=== PATIENT | male | born 1950 | race Caucasian/White ===

== ENCOUNTER → 2016-03-13 | Outpatient (CLI) | payer OTHER, BC ==
[~2016-03-13] MED LIST: ALLDSR60 PO; ASPEC81 PO; ATV/1 PO; BND25 PO; CHOL1TAB42 PO; CHOL1TAB46 PO; CLC100 PO; CYCL10TA6 PO; CYM/30 PO; DIGETAB13 PO; DILT120C67 PO; DRGTP100 TD; DRGTP50 TD; EFFSR75 PO; IBUP-1449 PO; LEVO25TA5 PO; LISI-725 PO; MCRK20 PO; METF500T5 PO; METH10TA2 PO; METH5TAB2 PO; MOML PO; OXYC15TA49 PO; POLY335019 PO; POTA10CA28 PO; PRLSR20 PO; RANI75TA7 PO; RMR15 PO; TPRSR25 PO; ZOLP10TA PO
== END | disposition home or self-care (01) ==
LOC: C.LAB1850 10:52
PROVIDERS: ATTEND Internal Medicine Endocrinology, Diabetes & Metabolism
DX: E06.3 Autoimmune thyroiditis (principal)

== ENCOUNTER 2016-07-07 11:40 | Emergency (ER) | payer OTHER, BC ==
[~2016-07-07] VITALS: Ht 167.6 cm; Wt 72.0 kg
[~2016-07-07 11:40] MED LIST changes: -ASPEC81 PO; -ATV/1 PO; -BND25 PO; -CHOL1TAB42 PO; -CHOL1TAB46 PO; -CLC100 PO; -CYCL10TA6 PO; -DIGETAB13 PO; -DILT120C67 PO; -DRGTP100 TD; -DRGTP50 TD; -EFFSR75 PO; -IBUP-1449 PO; -LEVO25TA5 PO; -MCRK20 PO; -METF500T5 PO; -METH10TA2 PO; -MOML PO; -OXYC15TA49 PO; -POLY335019 PO; -POTA10CA28 PO; -PRLSR20 PO; -RMR15 PO; -TPRSR25 PO
[2016-07-07 11:42] VITALS: TEMP 36.5; Ht 167.6 cm; Wt 72.0 kg
[2016-07-07] MEDS ORDERED: METOCLOPRAMIDE HCL INJ 5 MG/ML 2 ML VIAL IV STA (12:13)
[2016-07-07] MEDS ORDERED: HYDROmorphone INJ 1 MG/ML SYR IV STA (12:13)
[2016-07-07] MEDS ORDERED: SODIUM CHLORIDE 0.9% 1000ML 1,000 ML IV STA (12:13)
[2016-07-07] MEDS ORDERED: KETOROLAC TROMETHAMINE 30 MG/ML VIAL IV STA (12:13)
--- NOTE | 2016-07-07 12:16 | EMERGENCY ROOM VISIT NOTE ---
History Report prepared by Naheed: Ovidio Dowell Under the Supervision of: Dr. Varun Matthews M.D. First contact with patient: 12:01 Chief Complaint: ABDOMINAL PAIN Stated Complaint: ABD. PAIN, POSS. BOWEL OBSTRUCTION Nursing Triage Summary: pt here with abd pains since last pm pt states had one emesis last pm. pt states vomited again this am. having diarrhea. pt states takes chronic pain meds for back problems. had a bowel obstruction 2 years ago History of Present Illness The patient is a 66 year old male who presents to the Emergency Room with complaints of worsening abdominal pain that started yesterday. He had an episode of vomiting yesterday and another episode this morning. The patient has also been having some episodes of diarrhea, but he says that gets diarrhea from taking milk of magnesia. The patient says that he bent over when the pain started. He states that he has pain from "head to toe", and this pain is similar to his previous bowel obstruction 2 years ago. He took 2 oxycodone last night, and 1 this morning. He says that his pain is "off the charts" still. The patient notes that he takes chronic medications due to having syringomyelia. The patient had a hernia repair 3 years ago, and he says that his chronic pain started then. He still has his gallbladder. The patient has hypertension, diabetes, and sleep apnea. He has a history of supraventricular tachycardia. Source of History: patient Onset: Yesterday Position: abdomen Symptom Intensity: "off the charts" pain Timing: worsening Associated Symptoms: + diarrhea, + vomiting Note: Associated symptoms: Pain from "head to toe". Review of Systems See HPI for pertinent positives & negatives. A total of 10 systems reviewed and were otherwise negative. Past Medical & Surgical Medical Problems: (1) Bowel obstruction (2) Diabetes (3) HTN (hypertension) (4) SVT (supraventricular tachycardia) (5) Syringomyelia Surgical Problems: (1) Hx of appendectomy Family History No pertinent family history Social History Smoking Status: Never Smoker Marital Status: Housing Status: lives with family Occupation Status: disabled Current/Historical Medications Scheduled Cholecalciferol (Vitamin D), 1 TAB PO DAILY Diltiazem Hcl Extended Release (Diltiazem Hcl Er), 1 CAP PO DAILY Fentanyl (Fentanyl), 1 PATCH TD 48 HRS Lorazepam (Ativan), 1 MG PO DAILY Magnesium Hydroxide (Milk Of Magnesia), 2 TBS PO DAILY Potassium Chloride (Micro-K Ext Rel), 10 MEQ PO DAILY Zolpidem Tartrate (Ambien), 10 MG PO HS Scheduled PRN Oxycodone Hcl (Roxicodone), 15 MG PO DAILY PRN for Pain Polyethylene Glycol 3350 (Miralax), 17 GM PO DAILY PRN for Constipation Allergies Coded Allergies: Tetanus Immune Globulin (Verified Allergy, Unknown, SWELLING, 04/05/11) Uncoded Allergies: LINZESS (Allergy, Severe, rash, severe diarrhea,swelling, 10/11/12) Physical Exam Vital Signs Date Time Temp Pulse Resp B/P Pulse Ox O2 Delivery O2 Flow Rate FiO2 07/07/16 15:34 86 18 138/83 97 Room Air 07/07/16 14:42 83 18 137/76 98 Room Air 07/07/16 12:44 85 23 145/85 98 Room Air 07/07/16 12:40 87 07/07/16 11:42 36.5 80 16 151/89 100 Room Air Physical Exam GENERAL: Patient is a healthy-appearing well-nourished 66 year old male. HEAD: Normocephalic atraumatic EYES: Ocular movements intact pupils equal and react to light OROPHARYNX mucous membranes are moist no exudates present no erythema or edema present NECK: Supple no nuchal rigidity CHEST: Good equal expansion LUNGS: Clear and equal to auscultation CARDIAC: Normal S1 and S2 ABDOMEN: Soft nontender no guarding BACK: No CVA tenderness EXTREMITIES: No pain upon palpation normal muscle strength in all groups no clubbing cyanosis or edema NEURO: Patient is following commands is answering questions appropriately. Alert and oriented x3 Cranial Nerves 2-12 grossly intact Medical Decision & Procedures ER Provider Diagnostic Interpretation: CT results as stated below per my review and radiologist interpretation: CT SCAN OF THE ABDOMEN AND PELVIS WITH IV CONTRAST CLINICAL HISTORY: Generalized abdominal pain. COMPARISON STUDY: No priors. TECHNIQUE: Following the IV administration of 118 cc of Optiray 320, CT scan of the abdomen and pelvis is performed from the lung bases to the proximal femora. Images are reviewed in the axial, sagittal, and coronal planes. IV contrast was administered without complication. Automated dose control exposure was utilized. CT DOSE: 467.88 mGycm FINDINGS: Lung bases: The heart is normal in size and without pericardial effusion. There are coronary artery calcifications. The lung bases are clear. There is a small hiatal hernia. Liver: The contrast-enhanced liver is normal in size, contour, and attenuation. There is no intrahepatic biliary ductal dilatation. The hepatic veins and portal veins are patent. A 9 mm cyst is noted in the left lobe. Gallbladder: Unremarkable. Spleen: Normal in size and attenuation. Pancreas: Moderately atrophic and grossly unremarkable. Adrenal glands: Unremarkable. Kidneys: The contrast enhanced kidneys demonstrate cortical atrophy and are without hydronephrosis. The kidneys enhance symmetrically. 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 Additional subcentimeter renal cortical hypodensities likely represent cysts but are too small for definitive characterization. Abdominal vasculature: The abdominal aorta is normal in course and caliber noting moderate atherosclerotic calcification. Bowel: The small bowel and colon are normal in course and caliber. There is moderate colonic fecal retention. The appendix is not identified and reported surgically absent. Peritoneum: There is no intraperitoneal free air or abdominal ascites. There is a fat-containing umbilical hernia. Lymphadenopathy: None. Pelvic viscera: The prostate gland is enlarged and heterogeneous, measuring 5.3 cm in transverse diameter. There is median lobe hypertrophy. The bladder is distended and grossly unremarkable. Skeletal structures: There is mild lumbosacral spondylosis. No lytic or blastic lesions are seen. IMPRESSION: 1. There are no acute infectious or inflammatory findings in the abdomen or pelvis. 2. Moderate constipation. 3. Prostatomegaly. 4. Additional findings as above. Electronically signed by: Carlos Eduardo Garcia M.D. 07/07/2016 2:49 PM Dictated Date/Time: 07/07/2016 2:45 PM Laboratory Results 07/07/16 12:25 Red Blood Count 4.25, Mean Corpuscular Volume 91.5, Mean Corpuscular Hemoglobin 32.0, Mean Corpuscular Hemoglobin Concent 35.0, Mean Platelet Volume 8.8, Neutrophils (%) (Auto) 76.7, Lymphocytes (%) (Auto) 11.0, Monocytes (%) (Auto) 10.8, Eosinophils (%) (Auto) 0.9, Basophils (%) (Auto) 0.3, Neutrophils # (Auto ) 5.11, Lymphocytes # (Auto) 0.73, Monocytes # (Auto) 0.72, Eosinophils # (Auto ) 0.06, Basophils # (Auto) 0.02 07/07/16 12:25 Test 07/07/16 12:25 07/07/16 13:35 White Blood Count 6.66 K/uL (4.8-10.8) Red Blood Count 4.25 M/uL (4.7-6.1) Hemoglobin 13.6 g/dL (14.0-18.0) Hematocrit 38.9 % (42-52) Mean Corpuscular Volume 91.5 fL (80-100) Mean Corpuscular Hemoglobin 32.0 pg (25-34) Mean Corpuscular Hemoglobin Concent 35.0 g/dl (32-36) Platelet Count 250 K/uL (130-400) Mean Platelet Volume 8.8 fL (7.4-10.4) Neutrophils (%) (Auto) 76.7 % Lymphocytes (%) (Auto) 11.0 % Monocytes (%) (Auto) 10.8 % Eosinophils (%) (Auto) 0.9 % Basophils (%) (Auto) 0.3 % Neutrophils # (Auto) 5.11 K/uL (1.4-6.5) Lymphocytes # (Auto) 0.73 K/uL (1.2-3.4) Monocytes # (Auto) 0.72 K/uL (0.11-0.59) Eosinophils # (Auto) 0.06 K/uL (0-0.5) Basophils # (Auto) 0.02 K/uL (0-0.2) RDW Standard Deviation 42.8 fL (36.4-46.3) RDW Coefficient of Variation 12.7 % (11.5-14.5) Immature Granulocyte % (Auto) 0.3 % Immature Granulocyte # (Auto) 0.02 K/uL (0.00-0.02) Anion Gap 9.0 mmol/L (3-11) Est Creatinine Clear Calc Drug Dose 69.3 ml/min Estimated GFR () 98.7 Estimated GFR (Non- 85.2 BUN/Creatinine Ratio 20.0 (10-20) Calcium Level 9.2 mg/dl (8.5-10.1) Total Bilirubin 0.5 mg/dl (0.2-1) Direct Bilirubin 0.1 mg/dl (0-0.2) Aspartate Amino Transf (AST/SGOT) 25 U/L (15-37) Alanine Aminotransferase (ALT/SGPT) 23 U/L (12-78) Alkaline Phosphatase 56 U/L (45-117) Total Protein 7.8 gm/dl (6.4-8.2) Albumin 4.7 gm/dl (3.4-5.0) Lipase 119 U/L (73-393) Urine Color YELLOW Urine Appearance CLEAR (CLEAR) Urine pH >= 9.0 (4.5-7.5) Urine Specific [place] 1.010 (1.000-1.030) Urine Protein NEG (NEG) Urine Glucose (UA) NEG (NEG) Urine Ketones TRACE (NEG) Urine Occult Blood NEG (NEG) Urine Nitrite NEG (NEG) Urine Bilirubin NEG (NEG) Urine Urobilinogen NEG (NEG) Urine Leukocyte Esterase NEG (NEG) Labs reviewed by ED physician. Medications Administered Medications (Trade) Dose Ordered Sig/Yonny Route Start Time Stop Time Status Last Admin Dose Admin Sodium Chloride (Nss 1000ml) 1,000 ml @ 999 mls/hr Q1H1M STAT IV 07/07/16 12:13 07/07/16 13:13 DC 07/07/16 12:32 999 MLS/HR Ketorolac Tromethamine (Toradol Inj) 30 mg NOW STAT IV 07/07/16 12:13 07/07/16 12:15 DC 07/07/16 12:33 30 MG Hydromorphone HCl (Dilaudid Inj) 1 mg NOW STAT IV 07/07/16 12:13 07/07/16 12:15 DC 07/07/16 12:33 1 MG Metoclopramide HCl (Reglan Inj) 10 mg NOW STAT IV 07/07/16 12:13 07/07/16 12:15 DC 07/07/16 12:32 10 MG Potassium Chloride (Mireya Ciel Elix) 40 meq NOW STAT PO 07/07/16 13:22 07/07/16 13:23 DC 07/07/16 13:31 40 MEQ Potassium Chloride (Mireya Ciel Elix) 40 meq NOW STAT PO 07/07/16 14:12 07/07/16 14:13 DC 07/07/16 14:53 40 MEQ Magnesium Citrate (Citrate Of Magnesia Soln) 296 ml NOW STAT PO 07/07/16 15:16 5/5/17 15:17 DC 07/07/16 15:29 296 ML ED Course 1207: Past medical records reviewed. The patient was evaluated in room B11B. A complete history and physical examination was performed. 1213: Ordered Dilaudid Inj 1 mg IV, Toradol Inj 30 mg IV, NSS 1000 ml @ 999 mls/ hr IV. 1250: I reevaluated the patient and his repeat abdominal exam in benign again. He wanted me to clip his toenail which I refused to do, as there is no evidence of infection there. The patient is now claiming that his deputy court clerk who he sees in [place] is sending him in here for his toenail. 1322: Ordered Mireya Ciel Elix 40 meq PO. 1515: Upon reexamination the patient is resting comfortably. I discussed results and treatment plan with the patient. He verbalizes agreement and understanding. The patient is ready for discharge. 1516: Ordered Citrate of Magnesia Soln 296 ml PO. Medical Decision Prior records/ancillary studies reviewed. Triage Nursing notes reviewed. The patient's history was concerning for abdominal pain. Differential diagnosis: Etiologies such as appendicitis, diverticulitis, PUD, biliary pathology, UTI, pancreatitis, obstruction, mesenteric ischemia, aortic pathology, infections, inflammatory bowel disease, renal colic, as well as others were entertained. This is a 66-year-old male who presents emergency department complaining of diffuse abdominal pain. The patient is concerned he has a bowel obstruction. He is also concerned about an ingrown toenail. On physical exam the ingrown toenail does not appear to be if infected and the patient normally sees a deputy court clerk for his ingrown toes. I believe that the patient is safe enough to continue to follow-up with podiatry. He does not have an elevation in his white blood count he has a normal renal profile he has a normal liver profile he has a normal lipase. CAT scan of his abdomen pelvis does not show any acute process. He has a benign abdominal examination. Serial abdominal examinations were performed on the patient in the emergency department and at no time did the patient exhibit abdominal tenderness. Based on these findings I felt that the patient most likely would benefit from a magnesium citrate cleanout. The patient was given magnesium citrate in the emergency department. He was also received Dilaudid as well as Zofran repeat examination revealed improvement patient's symptoms. I do believe that the patient is well enough to follow-up with his primary care physician. Patient was in agreement with the treatment plan. [place] Drug Monitoring Program Search Results: patient reviewed within database Drug Monitoring Findings: Patient had 30 oxy 15's filled on 06/29, 10 Fentanyl 100 mg patches on same date. 150 Fentanyl's, 30 Zolpidem 10 mg on 06/23. 120 Lorazepam 1 mg on 06/14. Impression Primary Impression: Abdominal pain Additional Impressions: Constipation Hypokalemia Scribe Attestation The scribe's documentation has been prepared under my direction and personally reviewed by me in its entirety. I confirm that the note above accurately reflects all work, treatment, procedures, and medical decision making performed by me. Departure Information Dispostion Home / Self-Care Referrals Rio Mccall M.D. (PCP) Forms HOME CARE DOCUMENTATION FORM, IMPORTANT VISIT INFORMATION, School Instructions, Work Instructions Patient Instructions Constipation, ED Abd Pain Unkn Cause Male, ED Diet Clear Liquid, Hypokalemia Dc , My [facility] Additional Instructions Take 1/2 bottle Mag Citrate Repeat second half in six hours Clear liquid diet next 48 hours You have been examined and treated today on an emergency basis only. This is not a substitute for, or an effort to provide, complete comprehensive medical care. It is impossible to recognize and treat all injuries or illnesses in a single emergency department visit. It is therefore important that you follow up closely with Dr Mccall. Call as soon as possible for an appointment. Thank you for your time and consideration. I look forward to speaking with you again soon. Please don't hesitate to call us if you have any questions. Problem Qualifiers Primary Impression: Abdominal pain Abdominal location: periumbilical Qualified Codes: R10.33 - Periumbilical pain Additional Impressions: Constipation Constipation type: unspecified constipation type Qualified Codes: K59.00 - Constipation, unspecified
[2016-07-07 12:54] LABS: BASO % 0.3 %; BASO ABS # 0.02 K/uL (0-0.2); COMPLETE YES; EOS % 0.9 %; HEMATOCRIT 38.9 % (42-52); IG% 0.3 %; LYMPH ABS # 0.73 K/uL (1.2-3.4); MEAN CELL VOLUME 91.5 fL (80-100); MEAN PLATELET VOLUME 8.8 fL (7.4-10.4); MONO % 10.8 %; NEUT % 76.7 %; PLATELET COUNT 250 K/uL (130-400); RED BLOOD COUNT 4.25 M/uL (4.7-6.1); WHITE BLOOD COUNT 6.66 K/uL (4.8-10.8)
[2016-07-07] MEDS ORDERED: MOML PO (12:56)
[2016-07-07] MEDS ORDERED: CHOL1TAB42 PO (12:56)
[2016-07-07] MEDS ORDERED: ATV/1 PO (12:56)
[2016-07-07] MEDS ORDERED: DILT120C67 PO (12:56)
[2016-07-07] MEDS ORDERED: DRGTP100 TD (12:56)
[2016-07-07] MEDS ORDERED: OXYC15TA49 PO (12:56)
[2016-07-07] MEDS ORDERED: POLY335019 PO (12:56)
[2016-07-07] MEDS ORDERED: POTA10CA28 PO (12:57)
[2016-07-07 13:14] LABS: CALCIUM 9.2 mg/dl (8.5-10.1); CREATININE 0.92 mg/dl (0.60-1.40)
[2016-07-07] MEDS ORDERED: POTASSIUM CHLORIDE 20 MEQ/15 ML UDC PO STA ×2 (13:22→14:12)
[2016-07-07 14:04] LABS: URINE APPEARANCE CLEAR (CLEAR); URINE BILIRUBIN NEG (NEG); URINE COLOR YELLOW; URINE NITRITE NEG (NEG); URINE PH >= 9.0 (4.5-7.5); UROBILINOGEN NEG (NEG)
[2016-07-07 14:06] LABS: MANUAL MICROSCOPIC REQUIRED? NO; REVIEW REQ? NO
[2016-07-07] MEDS ORDERED: OPTIRAY 320 IV PRN (14:45)
--- NOTE | 2016-07-07 14:50 | DIAGNOSTIC IMAGING REPORT ---
CT SCAN OF THE ABDOMEN AND PELVIS WITH IV CONTRAST CLINICAL HISTORY: Generalized abdominal pain. COMPARISON STUDY: No priors. TECHNIQUE: Following the IV administration of 118 cc of Optiray 320, CT scan of the abdomen and pelvis is performed from the lung bases to the proximal femora. Images are reviewed in the axial, sagittal, and coronal planes. IV contrast was administered without complication. Automated dose control exposure was utilized. CT DOSE: 467.88 mGycm FINDINGS: Lung bases: The heart is normal in size and without pericardial effusion. There are coronary artery calcifications. The lung bases are clear. There is a small hiatal hernia. Liver: The contrast-enhanced liver is normal in size, contour, and attenuation. There is no intrahepatic biliary ductal dilatation. The hepatic veins and portal veins are patent. A 9 mm cyst is noted in the left lobe. Gallbladder: Unremarkable. Spleen: Normal in size and attenuation. Pancreas: Moderately atrophic and grossly unremarkable. Adrenal glands: Unremarkable. Kidneys: The contrast enhanced kidneys demonstrate cortical atrophy and are without hydronephrosis. The kidneys enhance symmetrically. 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 Additional subcentimeter renal cortical hypodensities likely represent cysts but are too small for definitive characterization. Abdominal vasculature: The abdominal aorta is normal in course and caliber noting moderate atherosclerotic calcification. Bowel: The small bowel and colon are normal in course and caliber. There is moderate colonic fecal retention. The appendix is not identified and reported surgically absent. Peritoneum: There is no intraperitoneal free air or abdominal ascites. There is a fat-containing umbilical hernia. Lymphadenopathy: None. Pelvic viscera: The prostate gland is enlarged and heterogeneous, measuring 5.3 cm in transverse diameter. There is median lobe hypertrophy. The bladder is distended and grossly unremarkable. Skeletal structures: There is mild lumbosacral spondylosis. No lytic or blastic lesions are seen. IMPRESSION: 1. There are no acute infectious or inflammatory findings in the abdomen or pelvis. 2. Moderate constipation. 3. Prostatomegaly. 4. Additional findings as above. Electronically signed by: Carlos Eduardo Garcia M.D. 07/07/2016 2:49 PM Dictated Date/Time: 07/07/2016 2:45 PM
[2016-07-07] MEDS ORDERED: MAGNESIUM CITRATE 296 ML/BTL PO STA (15:16)
[2016-07-07 15:34] VITALS: BP 138/83; PULSE 86; O2SAT 97
[2016-09-20] MEDS ORDERED: DIPH25CA5 PO (06:29)
[2016-09-24] MEDS ORDERED: ASPEC81 PO (13:49)
[2016-09-24] MEDS ORDERED: ATV/1 PO (13:49)
[2016-09-24] MEDS ORDERED: ZOLP10TA PO (13:49)
[2016-09-24] MEDS ORDERED: OXYC15TA49 PO (13:49)
[2016-09-24] MEDS ORDERED: EFFSR75 PO (13:49)
[2016-09-24] MEDS ORDERED: RMR15 PO (13:49)
== END 2016-07-07 15:34 | disposition home or self-care (01) ==
LOC: C.EDB 11:42
DX: R10.33 Periumbilical pain (principal); K59.00 Constipation, unspecified; E87.6 Hypokalemia; G95.0 Syringomyelia and syringobulbia; I10 Essential (primary) hypertension; E11.9 Type 2 diabetes mellitus without complications; G47.30 Sleep apnea, unspecified; R11.10 Vomiting, unspecified

== ENCOUNTER 2016-09-20 05:45 | Inpatient (IN) | payer OTHER, BC ==
[~2016-09-20] VITALS: Ht 172.7 cm; Wt 76.8 kg
[2016-09-20] VITALS (8 sets, daily range): BP systolic 131–174; BP diastolic 78–99; PULSE 74–94; TEMP 36.6–37.3; O2SAT 93–100; Ht 172.7 cm; Wt 76.8 kg
[~2016-09-20 05:45] MED LIST changes: -ALLDSR60 PO; +ATV/1 PO; +CHOL1TAB42 PO; -CYM/30 PO; +DILT120C67 PO; +DRGTP100 TD; -LISI-725 PO; -METH5TAB2 PO; +MOML PO; +OXYC15TA49 PO; +POLY335019 PO; +POTA10CA28 PO; -RANI75TA7 PO
[2016-09-20] MEDS ORDERED: LEVO25TA5 PO (06:29)
[2016-09-20] MEDS ORDERED: PRLSR20 PO (06:29)
[2016-09-20] MEDS ORDERED: BND25 PO (06:29)
[2016-09-20] MEDS ORDERED: METH10TA2 PO (06:29)
[2016-09-20] MEDS ORDERED: DIGETAB13 PO (06:29)
[2016-09-20] MEDS ORDERED: METF500T5 PO (06:29)
[2016-09-20] MEDS ORDERED: DRGTP50 TD (06:29)
[2016-09-20] MEDS ORDERED: IBUP-1449 PO (06:29)
[2016-09-20] MEDS ORDERED: CLC100 PO (06:29)
[2016-09-20] MEDS ORDERED: MCRK20 PO (06:29)
[2016-09-20] MEDS ORDERED: CHOL1TAB46 PO (06:29)
--- NOTE | 2016-09-20 06:35 | EMERGENCY ROOM VISIT NOTE ---
History Report prepared by Naheed: Jem Martínez Under the Supervision of: Dr. Sandra Webb D.O. First contact with patient: 06:00 Chief Complaint: OTHER COMPLAINT Stated Complaint: OVERDOSE History of Present Illness The patient is a 66 year old male who presents to the Emergency Room with complaints of a possible overdose that occurred this morning. The patient states that he has a history of chronic pain since 2003. He also has a history of SVT. Within the last year, the patient had an episode of SVT which he received an echocardiogram for in [facility]. He decided to set up an appointment with Dr. Mathews of [facility] for a second opinion. He was supposed to schedule another appointment with cardiology but never followed through with it. EMS found him in SVT and gave him Adenosine 6 mg IV and Zofran 4 mg IV. Yesterday, the patient took Methadone 60 mg PO that was from 2013, OxyContin, and some Ambien for his diffuse chronic pain. At 1 am this morning, he was awake working on his computer when his abdominal pain worsened. He took some Ibuprofen and Benadryl. He then woke up a couple hours later this morning lightheaded with numbness in his bilateral upper extremities saying that "he knew he had overdosed." He called EMS. He has 2 Fentanyl patches on as well. He has never had a heart attack before. He has urinary retention that is causing him pain. He could only expel 800 cc's of urine with strain here in the emergency department. The nursing staff did a bladder scan for an additional 400 cc's still inside. The patient describes having episodes of urinary retention and prostate problems since being in [place]. Source of History: patient Onset: this morning Position: other (global) Symptom Intensity: moderate Quality: other (Possible OD) Timing: constant Associated Symptoms: + abdominal pain, + numbness Note: His hands are tingling and he is lightheaded. Review of Systems See HPI for pertinent positives & negatives. A total of 10 systems reviewed and were otherwise negative. Past Medical & Surgical Medical Problems: (1) Bowel obstruction (2) Diabetes (3) HTN (hypertension) (4) SVT (supraventricular tachycardia) (5) Syringomyelia Surgical Problems: (1) Hx of appendectomy Family History No pertinent family history Social History Smoking Status: Never Smoker Smokeless Tobacco Use: No Marital Status: Housing Status: lives with family Occupation Status: disabled Current/Historical Medications Scheduled Cholecalciferol (Vitamin D3), 5,000 UNITS PO DAILY Digestive Enzymes (Papaya Enzyme), 8 TABS PO TIDM Diltiazem Hcl Extended Release (Diltiazem Hcl Er), 1 CAP PO DAILY Diphenhydramine Hcl (Benadryl), 50 MG PO DIRECTED Docusate Sodium (Docusate Sodium), 100 MG PO TID Fentanyl (Fentanyl), 1 PATCH TD 48 HRS Fentanyl (Fentanyl), 50 MCG TD Q48HR Levothyroxine Sodium (Levothyroxine Sodium), 25 MCG PO DAILY Lorazepam (Ativan), 1 MG PO DAILY Magnesium Hydroxide (Milk Of Magnesia), 2 TBS PO DAILY Potassium Chloride (Klor-Con M20), 20 MEQ PO DAILY Zolpidem Tartrate (Ambien), 10 MG PO HS Scheduled PRN Ibuprofen Tab (Motrin), 400 MG PO DIRECTED PRN for Pain Methadone Hcl (Dolophine), 10 MG PO Q8 PRN for Pain Oxycodone Hcl (Roxicodone), 15 MG PO DAILY PRN for Pain Polyethylene Glycol 3350 (Miralax), 17 GM PO DAILY PRN for Constipation Allergies Coded Allergies: Linaclotide (Verified Allergy, Intermediate, rash, severe diarrhea, swelling, 09/20/16) Tetanus Immune Globulin (Verified Allergy, Unknown, SWELLING, 09/20/16) CI Pigment Blue 63 (Unverified Adverse Reaction, Unknown, UNKNOWN, 09/20/16 ) Duloxetine (Unverified Adverse Reaction, Unknown, UNKNOWN, 09/20/16) Physical Exam Vital Signs Date Time Temp Pulse Resp B/P (MAP) Pulse Ox O2 Delivery O2 Flow Rate FiO2 09/20/16 08:36 103 17 95 09/20/16 08:31 158/93 09/20/16 08:06 103 98 09/20/16 08:01 162/92 09/20/16 07:36 100 15 98 09/20/16 07:31 156/84 09/20/16 07:30 102 17 93 09/20/16 07:01 156/89 09/20/16 07:00 107 20 99 09/20/16 06:18 109 09/20/16 05:53 36.7 106 20 171/93 98 Room Air Physical Exam HEENT: Head - normocephalic and atraumatic Pupils are equal, round, and reactive to light. Extraocular eye muscles are intact, and sclera are anicteric. Nose - moist nasal mucosa without discharge. Mouth - moist buccal mucosa. Oropharynx is nonerythematous and there is no tonsillar exudate or edema noted. Neck: Supple; no JVD, nuchal rigidity, cervical lymphadenopathy, or auscultated. Heart: Tachycardic rate with a regular rhythm. There is a normal S1 and S2 with no murmurs, clicks, or gallops appreciated. Lungs: Clear to auscultation bilaterally with no wheezes, rales, or rhonchi. Abdomen: Soft, diffuse tenderness to palpation, distended, with good bowel sounds. There are no palpable pulsatile masses or hepatosplenomegaly. There is no guarding, rigidity, or rebound noted. Extremities: No evidence of cyanosis, clubbing, or edema. There are easily palpable peripheral pulses. Skin: warm and dry with good turgor and no rashes. Medical Decision & Procedures ER Provider Diagnostic Interpretation: Radiology results as stated below per my review and the radiologist's interpretation: CHEST ONE VIEW PORTABLE CLINICAL HISTORY: 66 years-old Male presenting with svt. TECHNIQUE: Portable upright AP view of the chest was obtained. COMPARISON: Chest CT from 2006. FINDINGS: Atherosclerosis of aortic arch. Cardiomediastinal silhouette otherwise normal. No abnormal soft tissue density in the region of the superior vena cava. Minimal bandlike opacity at the left lung base. Pleural spaces clear. Degenerative changes of the right glenohumeral joint. Upper abdomen normal. IMPRESSION: 1. No abnormal soft tissue density in the region of the superior vena cava. 2. Minimal left basilar atelectasis. Electronically signed by: Arnaldo Arenas M.D. 09/20/2016 7:34 AM Dictated Date/Time: 09/20/2016 7:31 AM Laboratory Results 09/20/16 06:45 Red Blood Count 4.66, Mean Corpuscular Volume 89.5, Mean Corpuscular Hemoglobin 31.1, Mean Corpuscular Hemoglobin Concent 34.8, Mean Platelet Volume 8.7, Neutrophils (%) (Auto) 79.3, Lymphocytes (%) (Auto) 11.8, Monocytes (%) (Auto) 7.9, Eosinophils (%) (Auto) 0.3, Basophils (%) (Auto) 0.3, Neutrophils # (Auto) 5.48, Lymphocytes # (Auto) 0.82, Monocytes # (Auto) 0.55, Eosinophils # (Auto) 0.02, Basophils # (Auto) 0.02 09/20/16 06:34 Test 09/20/16 05:44 09/20/16 05:55 09/20/16 06:34 09/20/16 06:45 Nucleated Red Blood Cells % % Urine Color COLORLESS Urine Appearance CLEAR (CLEAR) Urine pH 7.0 (4.5-7.5) Urine Specific [place] <= 1.005 (1.000-1.030) Urine Protein NEG (NEG) Urine Glucose (UA) TRACE (NEG) Urine Ketones 1+ (NEG) Urine Occult Blood NEG (NEG) Urine Nitrite NEG (NEG) Urine Bilirubin NEG (NEG) Urine Urobilinogen NEG (NEG) Urine Leukocyte Esterase NEG (NEG) Anion Gap 10.0 mmol/L (3-11) Est Creatinine Clear Calc Drug Dose 57.0 ml/min Estimated GFR () 71.6 Estimated GFR (Non- 61.8 BUN/Creatinine Ratio 12.4 (10-20) Calcium Level 9.4 mg/dl (8.5-10.1) Magnesium Level 3.1 mg/dl (1.8-2.4) Total Bilirubin 0.6 mg/dl (0.2-1) Aspartate Amino Transf (AST/SGOT) 13 U/L (15-37) Alanine Aminotransferase (ALT/SGPT) 20 U/L (12-78) Alkaline Phosphatase 83 U/L (45-117) Total Creatine Kinase 116 U/L (39-308) Total Protein 8.1 gm/dl (6.4-8.2) Albumin 4.6 gm/dl (3.4-5.0) Globulin 3.5 gm/dl (2.5-4.0) Albumin/Globulin Ratio 1.3 (0.9-2) Thyroid Stimulating Hormone (TSH) 1.120 uIu/ml (0.300-4.500) White Blood Count 6.92 K/uL (4.8-10.8) Red Blood Count 4.66 M/uL (4.7-6.1) Hemoglobin 14.5 g/dL (14.0-18.0) Hematocrit 41.7 % (42-52) Mean Corpuscular Volume 89.5 fL (80-100) Mean Corpuscular Hemoglobin 31.1 pg (25-34) Mean Corpuscular Hemoglobin Concent 34.8 g/dl (32-36) Platelet Count 286 K/uL (130-400) Mean Platelet Volume 8.7 fL (7.4-10.4) Neutrophils (%) (Auto) 79.3 % Lymphocytes (%) (Auto) 11.8 % Monocytes (%) (Auto) 7.9 % Eosinophils (%) (Auto) 0.3 % Basophils (%) (Auto) 0.3 % Neutrophils # (Auto) 5.48 K/uL (1.4-6.5) Lymphocytes # (Auto) 0.82 K/uL (1.2-3.4) Monocytes # (Auto) 0.55 K/uL (0.11-0.59) Eosinophils # (Auto) 0.02 K/uL (0-0.5) Basophils # (Auto) 0.02 K/uL (0-0.2) RDW Standard Deviation 40.3 fL (36.4-46.3) RDW Coefficient of Variation 12.5 % (11.5-14.5) Immature Granulocyte % (Auto) 0.4 % Immature Granulocyte # (Auto) 0.03 K/uL (0.00-0.02) Laboratory results per my review. Medications Administered Medications (Trade) Dose Ordered Sig/Yonny Route Start Time Stop Time Status Last Admin Dose Admin Sodium Chloride 500 ml @ 999 mls/hr Q31M STAT IV 09/20/16 07:00 09/20/16 07:30 DC 09/20/16 07:04 999 MLS/HR Sodium Chloride 1,000 ml @ 250 mls/hr Q4H STAT IV 09/20/16 07:00 09/20/16 10:59 DC 09/20/16 07:50 250 MLS/HR Procedure Sodium Chloride 1000 ml @ 250 mls/hr IV Sodium Chloride 500 ml @ 999 mls/hr IV ECG Indication: toxicologic Rate (beats per minute): 107 Rhythm: sinus tachycardia Findings: ST depression (Lateral), T-wave inversion (Inferior) Comparison ECG Date: 22 Nov 1998 Change: The T-wave inversions and ST depressions are new. ED Course 0600: Past medical records reviewed. The patient was evaluated in room B7. A complete history and physical exam was performed. A bladder scan was performed as described above. Laboratory studies were drawn as above. The patient had a twelve-lead EKG as described above. 0658: After the nursing staff placed a urinary catheter in the patient, he released an additional 1 L of urine. He then went on to tell me that the tingling is now in his bilateral lower extremities as well as his upper. 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 0700: The patient appeared clinically dehydrated on physical exam. I Ordered Sodium Chloride 1000 ml @ 250 mls/hr IV, Sodium Chloride 500 ml @ 999 mls/hr IV. 0708: I met the patient's at this time. The patient now has pain in his arms and legs, which he has had for the past two years. He wondered if I had any suggestion on what this could be. 0736: Upon reevaluation, I discussed findings and results with the patient. He verbalized agreement of the treatment plan. [facility] The patient will be evaluated for further management and care. Medical Decision The patient is a 66 year old male who presents to the ED with a possible overdose. Differential diagnosis includes NSTEMI, cardiac dysrhythmia, opioid overdose, exacerbation of chronic pain, UTI, and urinary retention. I attest that I have personally reviewed the patient's current medication list. Patient was found to have an elevated blood pressure that is not well controlled. It will be addressed as the patient is treated as an inpatient. Laboratory Results: No leukocytosis, stable H&H, normal renal function, glucose 141, urinalysis shows trace glucose and 1+ ketones, TSH 1.1, cardiac enzymes negative, and LFTs normal. This is a 66-year-old male patient with a history of chronic pain. The patient states that his chronic pain seems to worsen over the past couple of days. Also experiencing increased abdominal pain over the past 2 days. The patient describes an episode of intermittent urinary hesitancy and difficulty creating a urine stream. Upon presentation to the emergency department, the patient sat on the toilet for approximately 30 minutes trying to empty his bladder. He was able to produce 800 mL of urine with significant strain. Bladder scan showed an additional 400 mL of urine within the bladder. Once the Oliver catheter was placed, he produce an additional liter and had complete resolution of the abdominal pain. The patient did take a significant amount of opioid over the past 24-48 hours. He is prescribed 150 g of fentanyl transdermal. These were in place. He also took OxyContin which is prescribed for him. He then also took 60 mg of methadone which was left over from 2013. On top of this, the patient took Benadryl and Ambien. I do believe there is some component of overdose. Certainly that amount of opioids is not helping the patient's urinary retention. The patient did have an episode of SVT for EMS. He was converted with 6 mg of IV adenosine. Upon arrival to the emergency department, a twelve-lead EKG was obtained which showed significant inferior and lateral changes. Patient has no associated chest pain. Cardiac biomarkers were negative. I discussed the case with the [facility] Hospitalist and they will evaluate for further management. Consults Time Called: [phone] Consulting Physician[facility] Return[facility] Call: [phone] They will be evaluating the patient for further management and care. Impression Primary Impression: SVT (supraventricular tachycardia) Additional Impressions: Urinary retention Acute electrocardiogram changes Scribe Attestation The scribe's documentation has been prepared under my direction and personally reviewed by me in its entirety. I confirm that the note above accurately reflects all work, treatment, procedures, and medical decision making performed by me. Departure Information Dispostion Being Evaluated By Hospitalist Referrals Rio Mccall M.D. (PCP) Patient Instructions My [facility] Problem Qualifiers
[2016-09-20] MEDS ORDERED: CYCL10TA6 PO (06:37)
[2016-09-20 06:41] LABS: COMPLETE YES
[2016-09-20] MEDS ORDERED: SODIUM CHLORIDE 0.9% 500ML 500 ML IV STA (07:00)
[2016-09-20] MEDS ORDERED: SODIUM CHLORIDE 0.9% 1000ML 1,000 ML IV STA (07:00)
[2016-09-20 07:06] LABS: BASO % 0.3 %; BASO ABS # 0.02 K/uL (0-0.2); COMPLETE YES; EOS % 0.3 %; HEMATOCRIT 41.7 % (42-52); IG% 0.4 %; LYMPH % 11.8 %; LYMPH ABS # 0.82 K/uL (1.2-3.4); MEAN CELL VOLUME 89.5 fL (80-100); MEAN CORPUSCULAR HEMOGLOBIN 31.1 pg (25-34); MEAN CORPUSCULAR HGB CONC 34.8 g/dl (32-36); MEAN PLATELET VOLUME 8.7 fL (7.4-10.4); MONO % 7.9 %; NEUT % 79.3 %; PLATELET COUNT 286 K/uL (130-400); RED BLOOD COUNT 4.66 M/uL (4.7-6.1); WHITE BLOOD COUNT 6.92 K/uL (4.8-10.8)
[2016-09-20 07:07] LABS: MANUAL MICROSCOPIC REQUIRED? NO; URINE APPEARANCE CLEAR (CLEAR); URINE BILIRUBIN NEG (NEG); URINE COLOR COLORLESS; URINE NITRITE NEG (NEG); URINE SPECIFIC GRAVITY <= 1.005 (1.000-1.030); UROBILINOGEN NEG (NEG)
[2016-09-20 07:09] LABS: REVIEW REQ? NO
[2016-09-20 07:18] LABS: ALT/SGPT 20 U/L (12-78); BLOOD UREA NITROGEN 15 mg/dl (7-18); BUN/CREATININE RATIO 12.4 (10-20); CALCIUM 9.4 mg/dl (8.5-10.1); CARBON DIOXIDE 26 mmol/L (21-32); CHLORIDE 100 mmol/L (98-107); GLUCOSE 141 mg/dl (70-99); POTASSIUM 3.5 mmol/L (3.5-5.1); SODIUM 136 mmol/L (136-145)
[2016-09-20 07:29] LABS: ALB/GLOB RATIO 1.3 (0.9-2); ALKALINE PHOSPHATASE 83 U/L (45-117); AST/SGOT 13 U/L (15-37); CKMB/CK RATIO 1.1 (0-3.0)
--- NOTE | 2016-09-20 07:35 | DIAGNOSTIC IMAGING REPORT ---
CHEST ONE VIEW PORTABLE CLINICAL HISTORY: 66 years-old Male presenting with svt. TECHNIQUE: Portable upright AP view of the chest was obtained. COMPARISON: Chest CT from 2006. FINDINGS: Atherosclerosis of aortic arch. Cardiomediastinal silhouette otherwise normal. No abnormal soft tissue density in the region of the superior vena cava. Minimal bandlike opacity at the left lung base. Pleural spaces clear. Degenerative changes of the right glenohumeral joint. Upper abdomen normal. IMPRESSION: 1. No abnormal soft tissue density in the region of the superior vena cava. 2. Minimal left basilar atelectasis. Electronically signed by: Arnaldo Arenas M.D. 09/20/2016 7:34 AM Dictated Date/Time: 09/20/2016 7:31 AM
[2016-09-20] MEDS ORDERED: ONDANSETRON INJ 2 MG/ML 2 ML VIAL IV PRN (09:00)
[2016-09-20] MEDS ORDERED: DILTIAZEM HCL 120 MG CAPCR PO SCH (09:00)
[2016-09-20] MEDS ORDERED: METOPROLOL TARTRATE 1 MG/ML VIAL IV PRN (09:15)
[2016-09-20] MEDS ORDERED: OPTIRAY 320 IV PRN (09:15)
[2016-09-20] MEDS ORDERED: DEXTROSE 50% 50 ML SYR IV PRN (09:30)
[2016-09-20] MEDS ORDERED: GLUCOSE 40% GEL 15 GM TUBE PO PRN (09:30)
[2016-09-20] MEDS ORDERED: GLUCOSE 10 TABS/TUBE PO PRN (09:30)
[2016-09-20] MEDS ORDERED: POTASSIUM CHLORIDE 20 MEQ TABCR PO ONE (09:30)
[2016-09-20] MEDS ORDERED: GLUCAGON FOR INJ 1 MG VIAL SQ PRN (09:30)
--- NOTE | 2016-09-20 10:00 | History and Physical ---
History & Physical Date & Time of Service: Sep 20, 2016 at 09:22 Chief Complaint: Overdose Primary Care Physician: Rio Mccall M.D. History of Present Illness Source: patient, family Patient is a 66 yr male with PMH of SVT, Hypertension, DM II diet controlled, BPH, Insomnia, Syringomyelia, Anxiety disorder, ANDRIA on CPAP who presents for evaluation of possible drug overdose. Patient is a poor historian. He reports he has chronic neck and lower back pain since many years and he was on Fentanyl , oxycodone currently and also was on Methadone previously which was discontinued. Reports having trouble with pain control yesterday and so took 60mg of his methadone (was from 2013) along with Ibuprofen (400mg)and Benadryl ( 50mg). He felt lightheaded and checked his BP which was 90/70 and so called EMS. He was found to be in SVT and was given Adenosine 6 mg IV and Zofran 4 mg IV. Currently patient is in sinus. He reports he did not take his morning medications. He also reports he has chronic urinary retention issues and was previously evaluated by Urology and has trouble urinating since yesterday. He also reports having abdominal pain predominantly in umbilical and suprapubic region and states it is intermittent and has been going on since about an year. Reports associated chronic constipation and intermittent nausea and vomiting since last 3 months. Denies any history of chest pain, SOB, fever, chills, diarrhea, hematuria, blood in stools, cough, palpitations. He had expel 800 cc' s of urine with strain after inserting Oliver in ED. Past Medical/Surgical History Medical Problems: (1) Bowel obstruction Status: Resolved (2) Diabetes Status: Chronic (3) HTN (hypertension) Status: Chronic (4) SVT (supraventricular tachycardia) Status: Resolved (5) Syringomyelia Status: Chronic Surgical Problems: (1) Hx of appendectomy Status: Resolved Family History No pertinent family history Not contributory Social History Smoking Status: Never Smoker Smokeless Tobacco Use: No Alcohol Use: none Marital Status: Occupational Status: disabled Multi-Drug Resistant Organisms History of MDRO: No Allergies Coded Allergies: Tetanus Immune Globulin (Verified Allergy, Unknown, SWELLING, 09/20/16) CI Pigment Blue 63 (Unverified Adverse Reaction, Unknown, UNKNOWN, 09/20/16 ) Duloxetine (Unverified Adverse Reaction, Unknown, UNKNOWN, 09/20/16) Uncoded Allergies: LINZESS (Allergy, Severe, rash, severe diarrhea,swelling, 10/11/12) Home Medications Scheduled Cholecalciferol (Vitamin D3), 5,000 UNITS PO DAILY Digestive Enzymes (Papaya Enzyme), 8 TABS PO TIDM Diltiazem Hcl Extended Release (Diltiazem Hcl Er), 1 CAP PO DAILY Diphenhydramine Hcl (Benadryl), 50 MG PO DIRECTED Docusate Sodium (Docusate Sodium), 100 MG PO TID Fentanyl (Fentanyl), 1 PATCH TD 48 HRS Fentanyl (Fentanyl), 50 MCG TD Q48HR Levothyroxine Sodium (Levothyroxine Sodium), 25 MCG PO DAILY Lorazepam (Ativan), 1 MG PO DAILY Magnesium Hydroxide (Milk Of Magnesia), 2 TBS PO DAILY Potassium Chloride (Klor-Con M20), 20 MEQ PO DAILY Zolpidem Tartrate (Ambien), 10 MG PO HS Scheduled PRN Ibuprofen Tab (Motrin), 400 MG PO DIRECTED PRN for Pain Methadone Hcl (Dolophine), 10 MG PO Q8 PRN for Pain Oxycodone Hcl (Roxicodone), 15 MG PO DAILY PRN for Pain Polyethylene Glycol 3350 (Miralax), 17 GM PO DAILY PRN for Constipation Review of Systems See HPI for pertinent positives & negatives. A total of 10 systems reviewed and were otherwise negative. Physical Exam Vital Signs Date Time Temp Pulse Resp B/P (MAP) Pulse Ox O2 Delivery O2 Flow Rate FiO2 09/20/16 09:07 97 09/20/16 07:31 156/84 09/20/16 07:30 102 17 93 09/20/16 07:01 156/89 09/20/16 07:00 107 20 99 09/20/16 06:18 109 09/20/16 05:53 36.7 106 20 171/93 98 Room Air General Appearance: WD/WN, no apparent distress Head: normocephalic, atraumatic Eyes: normal inspection, PERRL, EOMI ENT: normal ENT inspection, hearing grossly normal Neck: supple, trachea midline Respiratory/Chest: chest non-tender, lungs clear, normal breath sounds, no accessory muscle use Cardiovascular: regular rate, rhythm, no edema, no murmur, + tachycardia Abdomen/GI: normal bowel sounds, soft, + tenderness (Umbilical, Suprapubic, No guarding/rigidity ) Back: normal inspection Extremities/Musculoskelatal: normal inspection, no pedal edema Neurologic/Psych: lump roller II-XII nml as tested, no motor/sensory deficits, alert, normal mood/affect, oriented x 3 Skin: normal color, warm/dry Diagnostics Laboratory Results Results Past 24 Hours Test 09/20/16 05:44 09/20/16 05:55 09/20/16 06:34 09/20/16 06:45 Range/Units White Blood Count 6.92 4.8-10.8 K/uL Red Blood Count 4.66 4.7-6.1 M/uL Hemoglobin 14.5 14.0-18.0 g/dL Hematocrit 41.7 42-52 % Mean Corpuscular Volume 89.5 80-100 fL Mean Corpuscular Hemoglobin 31.1 25-34 pg Mean Corpuscular Hemoglobin Concent 34.8 32-36 g/dl Platelet Count 286 130-400 K/uL Mean Platelet Volume 8.7 7.4-10.4 fL Neutrophils (%) (Auto) 79.3 % Lymphocytes (%) (Auto) 11.8 % Monocytes (%) (Auto) 7.9 % Eosinophils (%) (Auto) 0.3 % Basophils (%) (Auto) 0.3 % Neutrophils # (Auto) 5.48 1.4-6.5 K/uL Lymphocytes # (Auto) 0.82 1.2-3.4 K/uL Monocytes # (Auto) 0.55 0.11-0.59 K/uL Eosinophils # (Auto) 0.02 0-0.5 K/uL Basophils # (Auto) 0.02 0-0.2 K/uL RDW Standard Deviation 40.3 36.4-46.3 fL RDW Coefficient of Variation 12.5 11.5-14.5 % Immature Granulocyte % (Auto) 0.4 % Immature Granulocyte # (Auto) 0.03 0.00-0.02 K/uL Nucleated Red Blood Cells % % Urine Color COLORLESS Urine Appearance CLEAR CLEAR Urine pH 7.0 4.5-7.5 Urine Specific [place] <= 1.005 1.000-1.030 Urine Protein NEG NEG Urine Glucose (UA) TRACE NEG Urine Ketones 1+ NEG Urine Occult Blood NEG NEG Urine Nitrite NEG NEG Urine Bilirubin NEG NEG Urine Urobilinogen NEG NEG Urine Leukocyte Esterase NEG NEG Sodium Level 136 136-145 mmol/L Potassium Level 3.5 3.5-5.1 mmol/L Chloride Level 100 98-107 mmol/L Carbon Dioxide Level 26 21-32 mmol/L Anion Gap 10.0 3-11 mmol/L Blood Urea Nitrogen 15 7-18 mg/dl Creatinine 1.20 0.60-1.40 mg/dl Est Creatinine Clear Calc Drug Dose 57.0 ml/min Estimated GFR () 71.6 Estimated GFR (Non- 61.8 BUN/Creatinine Ratio 12.4 10-20 Random Glucose 141 70-99 mg/dl Calcium Level 9.4 8.5-10.1 mg/dl Total Bilirubin 0.6 0.2-1 mg/dl Aspartate Amino Transf (AST/SGOT) 13 15-37 U/L Alanine Aminotransferase (ALT/SGPT) 20 12-78 U/L Alkaline Phosphatase 83 45-117 U/L Total Creatine Kinase 116 39-308 U/L Creatine Kinase MB 1.3 0.5-3.6 ng/ml Creatine Kinase MB Ratio 1.1 0-3.0 Troponin I < 0.015 0-0.045 ng/ml Total Protein 8.1 6.4-8.2 gm/dl Albumin 4.6 3.4-5.0 gm/dl Globulin 3.5 2.5-4.0 gm/dl Albumin/Globulin Ratio 1.3 0.9-2 Thyroid Stimulating Hormone (TSH) 1.120 0.300-4.500 uIu/ml Diagnostic Radiology CXR: 1. No abnormal soft tissue density in the region of the superior vena cava. 2. Minimal left basilar atelectasis. EKG EKG: Sinus Tachycardia, T wave inversion in inferior leads Impression Assessment and Plan SVT: Patient has H/O SVT Received Adenosine by EMS Has T wave changes in inferior leads and ST changes in lateral leads Currently in Sinus tachycardia and denies chest pain Restart Cardizem EKG changes likely secondary to SVT Trend cardiac enzymes Check ECHO Will consult cardiology Monitor in Tele TSH:wnl Urinary Retention: Presents with abdominal pain/pressure sensation, intermittent nausea, vomiting, chronic constipation Likely secondary BPH Will get ABD CT Continue Oliver for now Will consult Urology Chronic Pain Syndrome H/O Syringomyelia, Anxiety, Depression, Insomnia Reports that he was evaluated previously and was told not a surgical candidate Overdosed On Methadone, Also took Ibuprofen and Benadryl States he ran out of Lorazepam and Oxycodone 4 days ago and prefers not to be restarted On chronic Fentanyl patch Will benefit from following with pain management as outpatient Monitor for now DM II: Diet controlled Start ISS, accu checks HTN: Restart home meds Monitor Hypothyroidism: TSH:wnl Continue levothyroxine ANDRIA: Continue CPAP qhs DVT Px: Lovenox SQ COde Status: Full Code DISPOSITION: Monitor in Tele VTE Prophylaxis VTE Risk Assessment Done? Y/N: Yes Risk Level: Low
--- NOTE | 2016-09-20 10:24 | DIAGNOSTIC IMAGING REPORT ---
CT OF THE ABDOMEN AND PELVIS WITH CONTRAST CLINICAL HISTORY: Abdominal pain, Urinary retention. COMPARISON STUDY: CT of the abdomen and pelvis July 07, 2016. TECHNIQUE: Following IV administration of 93 mL of Optiray-320, axial images of the abdomen and pelvis were obtained from the lung bases to the proximal femurs. Images were reviewed in the axial, sagittal, and coronal planes. IV contrast was administered without complication. CT DOSE: 394.33 mGy.cm FINDINGS: Fatty infiltration of the liver is noted. Several subcentimeter hepatic lesions are unchanged since a chest CT of August 16, 2015 and are therefore benign. The spleen, adrenal glands and pancreas are normal. 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 There are numerous subcentimeter bilateral renal lesions which are too small to characterize. There is no hydronephrosis. There is mild renal cortical thinning. A Oliver balloon is present within the bladder which is collapsed. Prostate is mildly enlarged. The caliber and wall thickness of small and large bowel are normal. There are findings suggestive of a ventral/umbilical hernia repair with mesh. No pneumatosis, free air or portal venous gas is present. There is no lymphadenopathy. No suspicious skeletal lesions are identified. There is a fat-containing left inguinal hernia. IMPRESSION: 1. No acute process within the abdomen or pelvis. 2. No hydronephrosis. Mild enlargement of the prostate. Oliver balloon within the bladder which is collapsed. 3. Fatty liver. Electronically signed by: Jamarcus Rice M.D. 09/20/2016 10:23 AM Dictated Date/Time: 09/20/2016 10:17 AM
[2016-09-20] MEDS: SODIUM CHLORIDE 0.9% 1000ML 1,000 ML IV SCH (11:26)
[2016-09-20] MEDS ORDERED: DILTIAZEM HCL 120 MG CAPCR PO ONE (11:30)
[2016-09-20 11:49] LABS: PROTHROMBIN TIME (PATIENT) 11.2 SECONDS (9.0-12.0)
[2016-09-20] MEDS: ENOXAPARIN 40 MG/0.4 ML SYR SC SCH (12:00)
[2016-09-20] MEDS ORDERED: FENTANYL 50 MCG/HR TDSY TD SCH (12:00)
[2016-09-20] MEDS ORDERED: POTASSIUM CHLORIDE 20 MEQ/15 ML UDC PO ONE (12:00)
[2016-09-20] MEDS ORDERED: FENTANYL 100 MCG/HR TDSY TD SCH (12:00)
--- NOTE | 2016-09-20 12:22 | ECHOCARDIOGRAM REPORT ---
*NOTICE TO RECEIVING CONSTITUTION PARTY AGENCY This information is strictly Confidential and protected under [place] law. [place] law prohibits you from making any further disclosure of this information unless further disclosure is expressly permitted by the written consent of the person to whom it pertains or is authorized by law. A general authorization for the release of medical or other information is not sufficient for this purpose. Hospital accepts no responsibility if the information is made available to any other person, INCLUDING THE PATIENT. Interpretation Summary * Name: BOBY TAMEZ Study Date: 09/20/2016 09:17 AM BP: 171/104 mmHg * Patient Location: .ED HR: 96 * : 1950 (M/d/yyyy) Gender: Male Height: 68 in * Age: 66 yrs Ethnicity: CA Weight: 172 lb * Ordering Physician: Daniel Gallego * Referring Physician: Self, Referred * Performed By: Stephie Berg RCS * * Reason For Study: SVT * BSA: 1.9 m2 * -- Conclusions -- * There is moderate concentric left ventricular hypertrophy. * Left ventricular systolic function is normal. * Grade I diastolic dysfunction, (abnormal relaxation pattern). Procedure Details * A complete two-dimensional transthoracic echocardiogram was performed (2D, M-mode, Doppler and color flow Doppler). Left Ventricle * The left ventricle is normal in size. * There is moderate concentric left ventricular hypertrophy. * Left ventricular systolic function is normal. * Grade I diastolic dysfunction, (abnormal relaxation pattern). Right Ventricle * The right ventricle is normal size. * The right ventricle is hyperdynamic. Atria * The left atrial size is normal. * Right atrial size is normal. Mitral Valve * The mitral valve is grossly normal. * Significant mitral regurgitation is absent. Tricuspid Valve * The tricuspid valve is not well visualized, but is grossly normal. * There is trace tricuspid regurgitation. Aortic Valve * The aortic valve is normal in structure and function. * No hemodynamically significant valvular aortic stenosis. * There is no significant aortic regurgitation. Great Vessels * The aortic root is normal size. Pericardium/Pleural * There is no pericardial effusion. MMode 2D Measurements and Calculations IVSd 1.7 cm IVSs 1.9 cm LVIDd 3.7 cm LVIDs 2.0 cm LVPWd 1.5 cm LVPWs 1.5 cm IVS/LVPW 1.1 FS 45.5 % EDV(Teich) 59.2 ml ESV(Teich) 13.2 ml EF(Teich) 77.6 % EDV(cubed) 51.8 ml ESV(cubed) 8.4 ml EF(cubed) 83.8 % % IVS thick 8.4 % % LVPW thick -4.38 % LV mass(C)d 240.9 grams LV mass(C)dI 125.7 grams/m\S\2 LV mass(C)s 122.0 grams LV mass(C)sI 63.7 grams/m\S\2 SV(Teich) 45.9 ml SI(Teich) 24.0 ml/m\S\2 SV(cubed) 43.4 ml SI(cubed) 22.7 ml/m\S\2 Ao root diam 2.8 cm Ao root area 6.1 cm\S\2 LA dimension 3.3 cm LA/Ao 1.2 LVAd ap4 29.9 cm\S\2 LVLd ap4 8.4 cm EDV(MOD-sp4) 91.3 ml EDV(sp4-el) 90.2 ml LVAs ap4 19.5 cm\S\2 LVLs ap4 7.5 cm ESV(MOD-sp4) 41.9 ml ESV(sp4-el) 43.2 ml EF(MOD-sp4) 54.1 % EF(sp4-el) 52.1 % SV(MOD-sp4) 49.4 ml SI(MOD-sp4) 25.8 ml/m\S\2 SV(sp4-el) 47.0 ml SI(sp4-el) 24.5 ml/m\S\2 Doppler Measurements and Calculations PA V2 max 122.4 cm/sec PA max PG 6.0 mmHg
[2016-09-20] MEDS: INSULIN ASPART 100 UNITS/ML 3 ML PEN SC SCH ×3 (12:29→20:57)
--- NOTE | 2016-09-20 14:13 | Urology Consultation ---
History General Date of Service: Sep 20, 2016. Chief Complaint: retention of urine Primary Care Physician: Rio Mccall M.D. Pt seen a urologist before?: Yes If yes, why?: bladder problems History of Present Illness I am asked by Dr Gallego to evaluate and treat patient for urinary retention. He came to ER with weakness and a possible narcotic overdose. he has had chronic pain for 10 yrs and uses several chronic pain meds. He is also constipated. His abdomen hurts all over and his entire upper neck and back and both legs hurt. He noted weak stream and hesitancy but did not note feelings of incomplete bladder emptying. He has seen urologists at [facility] ( Dr pires) and [place]. He was released as he was felt to be normal. he describes being scoped by Dr Pires and was told all was normal. He has remote history of venereal disease from his time in [place] and [place]. Laboratory Labs were reviewed and are within normal limits unless listed below. Labs are available in the chart and at [facility] Problem List Medical Problems: (1) Abdominal pain Status: Acute (2) Acute electrocardiogram changes Status: Acute (3) Constipation Status: Acute (4) Hypokalemia Status: Acute (5) SVT (supraventricular tachycardia) Status: Acute (6) Urinary retention Status: Acute Past History anxiety, chronic back pain, coronary artery disease, high cholesterol, hypertension, V tach Past Surgical History: appendectomy Family History No pertinent family history not contributory for this issue Social History Hx Tobacco Use In Past Year?: No Smoking: quit greater than 1 year Marital status: Occupation status: disabled, other (combat [place]) History of MDRO No Allergies Coded Allergies: Tetanus Immune Globulin (Verified Allergy, Unknown, SWELLING, 09/20/16) CI Pigment Blue 63 (Unverified Adverse Reaction, Unknown, UNKNOWN, 09/20/16 ) Duloxetine (Unverified Adverse Reaction, Unknown, UNKNOWN, 09/20/16) Uncoded Allergies: LINZESS (Allergy, Severe, rash, severe diarrhea,swelling, 10/11/12) Medications Home Medications: Home Meds and Scripts Medications Dose Route/Sig Max Daily Dose Days Date Category Dose Instructions Dolophine (Methadone HCl) 10 Mg Tab 10 Mg PO Q8 PRN 09/20/16 Reported Motrin (Ibuprofen) 400 Mg Tab 400 Mg PO DIRECTED PRN 09/20/16 Reported Benadryl (Diphenhydramine Hcl) 25 Mg Cap 50 Mg PO DIRECTED 09/20/16 Reported Papaya Enzyme (Digestive Enzymes) 1 Tab Tab 8 Tabs PO TIDM 09/20/16 Reported Docusate Sodium 100 Mg Cap 100 Mg PO TID 09/20/16 Reported Levothyroxine Sodium 25 Mcg Tab 25 Mcg PO DAILY 90 09/20/16 Reported Fentanyl 50 Mcg Tdsy 50 Mcg TD Q48HR 09/20/16 Reported TOTAL 150 MCG/CHANGE, EVERY 48 HOURS. Klor-Con M20 (Potassium Chloride) 20 Meq Tabcr 20 Meq PO DAILY 09/20/16 Reported Vitamin D3 (Cholecalciferol) 5,000 Unit Tab 5,000 Units PO DAILY 09/20/16 Reported Milk Of Magnesia (Magnesium Hydroxide) 30 Ml Susp 2 Tbs PO DAILY 07/07/16 Reported Miralax (Polyethylene Glycol 3350) 1 Pow Pow 17 Gm PO DAILY PRN 07/07/16 Reported Roxicodone (Oxycodone Hcl) 15 Mg Tab 15 Mg PO DAILY PRN 07/07/16 Reported Fentanyl 100 Mcg Tdsy 1 Patch TD 48 HRS 07/07/16 Reported TOTAL 150 MCG/CHANGE, EVERY 48 HOURS. Ativan (Lorazepam) 1 Mg Tab 1 Mg PO DAILY 07/07/16 Reported Diltiazem Hcl Er (Diltiazem Hcl Extended Release) 120 Mg Cap 1 Cap PO DAILY 07/07/16 Reported Ambien (Zolpidem Tartrate) 10 Mg Tab 10 Mg PO HS 10/11/12 Reported Inpatient Medications: Current Inpatient Medications Medications (Trade) Dose Ordered Sig/Yonny Route Start Time Stop Time Status Last Admin Dose Admin Enoxaparin Sodium (Lovenox Inj) 40 mg Q24H SC 09/20/16 12:00 10/20/16 11:59 Sodium Chloride 1,000 ml @ 75 mls/hr [id number] IV 09/20/16 11:30 10/20/16 11:29 09/20/16 11:26 75 MLS/HR Acetaminophen (Tylenol Tab) 650 mg Q4H PRN PO 09/20/16 09:00 10/20/16 08:59 Ondansetron HCl (Zofran Inj) 4 mg Q6H PRN IV 09/20/16 09:00 10/20/16 08:59 Metoprolol Tartrate (Lopressor Iv) 2.5 mg Q6 PRN IV 09/20/16 09:15 10/20/16 09:14 Ioversol (Optiray 320) 125 ml UD PRN IV 09/20/16 09:15 09/24/16 09:14 Diltiazem HCl (TIAzac CAP) 120 mg DAILY PO 09/21/16 09:00 10/21/16 08:59 Docusate Sodium (coLACE CAP) 100 mg BID PRN PO 09/20/16 09:15 10/20/16 09:14 Fentanyl (Duragesic Patch) 50 mcg Q72H TD 09/20/16 12:00 10/04/16 11:59 Fentanyl (Duragesic Patch) 100 mcg Q72H TD 09/20/16 12:00 10/04/16 11:59 Levothyroxine Sodium (Synthroid Tab) 25 mcg DAILYBB PO 09/21/16 06:00 10/21/16 05:59 Potassium Chloride (Klor-Con Tab) 20 meq DAILY PO 09/21/16 09:00 10/21/16 08:59 Zolpidem Tartrate (Ambien Tab) 5 mg HSZ PRN PO 09/20/16 09:15 10/20/16 09:14 Polyethylene (Miralax Powder Packet) 17 gm DAILY PRN PO 09/20/16 09:15 10/20/16 09:14 Miscellaneous (Fentanyl Patch Remove & Waste) 1 ea Q3D@1159 N/A 09/23/16 11:59 10/23/16 11:58 Miscellaneous Information (Check Fentanyl Patch Placement) 1 ea QS N/A 09/20/16 16:00 10/20/16 15:59 Insulin Aspart (novoLOG ASPART) SLIDING SCALE If C... ACHS SC 09/20/16 11:00 10/20/16 10:59 09/20/16 12:29 1 UNITS Glucose (Glucose 40% Gel) 15-30 GRAMS 15 GRAMS... UD PRN PO 09/20/16 09:30 10/20/16 09:29 Glucose (Glucose Chew Tab) 4-8 Tablets 4 Tabl... UD PRN PO 09/20/16 09:30 10/20/16 09:29 Dextrose (Dextrose 50% 50ML Syringe) 25-50ML OF 50% DW IV FOR... UD PRN IV 09/20/16 09:30 10/20/16 09:29 Glucagon (Glucagon Inj) 1 mg UD PRN SQ 09/20/16 09:30 10/20/16 09:29 Miscellaneous (Fentanyl Patch Remove & Waste) 1 ea Q72H N/A 09/23/16 11:59 10/23/16 11:58 Review of Systems Review of Systems Constitutional: + frequent headaches, No fever, No chills Eyes: + blurred vision Neurological: + dizzy, + numbness/tingling Endocrine: + tired/sluggish Gastrointestinal: + abdominal pain, + constipation, + problem reported (no appetite) Cardiovascular: + irregular heartbeat, + palpitations, No chest pain, No swelling ankles/feet Respiratory: No shortness of breath, No wheezing, No chronic cough Musculoskeletal: + neck pain, + back pain, + arthritis Male : + weak stream, + nocturia more than once/night Additional Comments: sense of smell is missing Physical Exam Vital Signs: Vital Signs Past 12 Hours Date Time Temp Pulse Resp B/P (MAP) Pulse Ox O2 Delivery O2 Flow Rate FiO2 09/20/16 11:40 36.8 90 20 168/98 (121) 99 Room Air 09/20/16 10:15 36.9 94 18 174/97 (122) 99 Room Air 09/20/16 09:36 100 15 99 09/20/16 09:31 171/104 09/20/16 09:07 97 09/20/16 09:06 101 15 97 09/20/16 09:05 93 Room Air 09/20/16 09:01 167/109 09/20/16 08:36 103 17 95 09/20/16 08:31 158/93 09/20/16 08:06 103 98 09/20/16 08:01 162/92 09/20/16 07:36 100 15 98 09/20/16 07:31 156/84 09/20/16 07:30 102 17 93 09/20/16 07:01 156/89 09/20/16 07:00 107 20 99 09/20/16 06:18 109 09/20/16 05:53 36.7 106 20 171/93 98 Room Air Physical Exam: General Appearance: WD/WN, no apparent distress, + obese Eyes: bilateral eyes normal inspection ENT: hearing grossly normal Neck: no adenopathy, no JVD, trachea midline Respiratory/Chest: no respiratory distress, no accessory muscle use Gastrointestinal: Abdomen: RUQ tenderness, LUQ tenderness, RLQ tenderness, LLQ tenderness, diffuse, guarding Bladder: normal bladder Renal: normal renal Hernia: absent hernia Genitourinary - Male: Penis: normal penis Urethral Meatus: normal urethral meatus, pertinent finding (circuncised, normal meatsu) Anus / Perineum: normal anus/perineum Sphincter Tone: normal sphincter tone Prostate: normal prostate, size (30grams) Seminal Vesicles: normal seminal vesicles Extremities: non-tender, normal inspection, no pedal edema, no calf tenderness Neurologic/Psychiatric: alert, + pertinent finding (upset, frustrated, and at times does not make sense) Lymphatic: no adenopathy Assessment & Plan Assessment & Plan urinary retention with a 900ml residual today I think the bladder has suffered a stretch injury and suggest he keep the Hoang several days. I proposed that he take the hoang out at home Sunday am. We will see him in [facility] clinic mid day to check a PVR He is so agitated I think he will do better with a leg bag. With his remote history of multiple STDs I suggest testing for syphilis His most pressing concern now is pain control. I also suggest psychiatry see him for feeling overwhelmed with his pain management. I think he is depressed, He did not express any suicidal thoughts to me today.
[2016-09-20] MEDS ORDERED: OXYCODONE HCL IR 5 MG TAB (IMMEDIATE RELEASE) PO ONE (14:15)
[2016-09-20] MEDS: CHECK FENTANYL PATCH PLACEMENT SCH ×2 (16:00→23:22)
--- NOTE | 2016-09-20 16:18 | Cardiology Consultation ---
Cardiology Consultation Date of Consultation: Sep 20, 2016. Requesting Physician: Lashonda Reason for Consultation: SVT, EKG changes Pt evaluation today including: conversation w/ patient, physical exam, chart review, lab review, review of inpatient medication list, conversation w/ attending History of Present Illness Patient is a 58-year-old gentleman without a known history of coronary disease but suspected SVT who woke early this morning with some diffuse symptoms. Patient states that he had a sense of dysphoria numbness and tingling and lightheadedness. He felt this may be related to taking too much methadone. Patient subsequently took his blood pressure and noted it to be relatively low with a systolic in the 90s. Due to his persistent symptoms of dizziness, lightheadedness and low blood pressure he contacted EMS. Patient was noted in route to have a rapid heart rate and SVT. He was administered adenosine with resolution of his arrhythmia and improvement in his symptoms. Patient states that his main concern recently has been pain controlled. 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 He has persistent discomfort at several sites including his abdomen arms neck and legs. Approximately 1 year ago the patient had a similar episode of lightheadedness and hypotension. This was evaluated outside facility in the patient does describe being given a medication with termination of a fast heartbeat. He was seen in our Outpatient Center afterwards and felt to have a history consistent with an SVT. No objective evidence was available at that visit to document the SVT. Patient had previously been placed on metoprolol but this was changed to diltiazem over some concerns regarding lower extremity weakness. Patient states that in general his blood pressures been good although lately it has been rising slightly. At the time of this interview the patient was in significant pain. He had some difficulty staying on topic. At times he appeared somewhat confused and disoriented. While we did discuss some elements of his cardiac disease the conversation generally returned to adequate pain control. Past Medical/Surgical History Diabetes mellitus Hyperlipidemia Coco's thyroiditis Hypothyroidism Some income IA ileum and chronic pain Pituitary hypogonadism Surgical history Hernia repair Appendectomy Family History No pertinent family history Noncontributory. Social History Smoking Status: Never Smoker History of Alcohol Use: No Review of Systems Constitutional: + see HPI Respiratory: + see HPI Cardiac: + see HPI Abdomen: + see HPI Male : + see HPI Neurologic: + see HPI Heme: + see HPI Endo: + see HPI Skin: + see HPI Patient also complains of some lower abdominal discomfort and urinary retention. Most of the concerns revolve around adequate pain control and inability to perform routine activities due to significant pain. All Other Systems: Reviewed and Negative Allergies Coded Allergies: Linaclotide (Verified Allergy, Intermediate, rash, severe diarrhea, swelling, 09/20/16) Tetanus Immune Globulin (Verified Allergy, Unknown, SWELLING, 09/20/16) CI Pigment Blue 63 (Unverified Adverse Reaction, Unknown, UNKNOWN, 09/20/16 ) Duloxetine (Unverified Adverse Reaction, Unknown, UNKNOWN, 09/20/16) Medications Current Inpatient Medications Medications (Trade) Dose Ordered Sig/Yonny Route Start Time Stop Time Status Last Admin Dose Admin Enoxaparin Sodium (Lovenox Inj) 40 mg Q24H SC 09/20/16 12:00 10/20/16 11:59 Sodium Chloride 1,000 ml @ 75 mls/hr [id number] IV 09/20/16 11:30 10/20/16 11:29 09/20/16 11:26 75 MLS/HR Acetaminophen (Tylenol Tab) 650 mg Q4H PRN PO 09/20/16 09:00 10/20/16 08:59 Ondansetron HCl (Zofran Inj) 4 mg Q6H PRN IV 09/20/16 09:00 10/20/16 08:59 Metoprolol Tartrate (Lopressor Iv) 2.5 mg Q6 PRN IV 09/20/16 09:15 10/20/16 09:14 Ioversol (Optiray 320) 125 ml UD PRN IV 09/20/16 09:15 09/24/16 09:14 Diltiazem HCl (TIAzac CAP) 120 mg DAILY PO 09/21/16 09:00 10/21/16 08:59 Docusate Sodium (coLACE CAP) 100 mg BID PRN PO 09/20/16 09:15 10/20/16 09:14 Levothyroxine Sodium (Synthroid Tab) 25 mcg DAILYBB PO 09/21/16 06:00 10/21/16 05:59 Potassium Chloride (Klor-Con Tab) 20 meq DAILY PO 09/21/16 09:00 10/21/16 08:59 Zolpidem Tartrate (Ambien Tab) 5 mg HSZ PRN PO 09/20/16 09:15 10/20/16 09:14 Polyethylene (Miralax Powder Packet) 17 gm DAILY PRN PO 09/20/16 09:15 10/20/16 09:14 Miscellaneous Information (Check Fentanyl Patch Placement) 1 ea QS N/A 09/20/16 16:00 10/20/16 15:59 Insulin Aspart (novoLOG ASPART) SLIDING SCALE If C... ACHS SC 09/20/16 11:00 10/20/16 10:59 09/20/16 12:29 1 UNITS Glucose (Glucose 40% Gel) 15-30 GRAMS 15 GRAMS... UD PRN PO 09/20/16 09:30 10/20/16 09:29 Glucose (Glucose Chew Tab) 4-8 Tablets 4 Tabl... UD PRN PO 09/20/16 09:30 10/20/16 09:29 Dextrose (Dextrose 50% 50ML Syringe) 25-50ML OF 50% DW IV FOR... UD PRN IV 09/20/16 09:30 10/20/16 09:29 Glucagon (Glucagon Inj) 1 mg UD PRN SQ 09/20/16 09:30 10/20/16 09:29 Fentanyl (Duragesic Patch) 100 mcg Q72H TD 09/22/16 14:00 10/06/16 13:59 Fentanyl (Duragesic Patch) 50 mcg Q72H TD 09/21/16 14:00 10/05/16 13:59 Miscellaneous (Fentanyl Patch Remove & Waste) 1 ea Q3D@1359 N/A 09/21/16 13:59 10/21/16 13:58 Miscellaneous (Fentanyl Patch Remove & Waste) 1 ea Q3D@1359 N/A 09/22/16 13:59 10/22/16 13:58 Physical Exam Vital Signs Past 12 Hours Date Time Temp Pulse Resp B/P (MAP) Pulse Ox O2 Delivery O2 Flow Rate FiO2 09/20/16 11:40 36.8 90 20 168/98 (121) 99 Room Air 09/20/16 10:15 36.9 94 18 174/97 (122) 99 Room Air 09/20/16 09:36 100 15 99 09/20/16 09:31 171/104 09/20/16 09:07 97 09/20/16 09:06 101 15 97 09/20/16 09:05 93 Room Air 09/20/16 09:01 167/109 09/20/16 08:36 103 17 95 09/20/16 08:31 158/93 09/20/16 08:06 103 98 09/20/16 08:01 162/92 09/20/16 07:36 100 15 98 09/20/16 07:31 156/84 09/20/16 07:30 102 17 93 09/20/16 07:01 156/89 09/20/16 07:00 107 20 99 09/20/16 06:18 109 09/20/16 05:53 36.7 106 20 171/93 98 Room Air The patient is alert and oriented. Mood and affect appeared normal. He answered all questions appropriately. He appeared somewhat confused at times. He was in obvious discomfort. HEENT: Pupils are equal and reactive to light and accommodation. Extraocular movements are intact. The sclerae are anicteric. Neuro: Cranial nerves intact Neck: Patient's neck is supple. He has palpable carotid pulses bilaterally without bruits on auscultation. There is no evidence of jugular venous distention. The thyroid is not enlarged. Lungs: Clear to auscultation bilaterally. He has good air movement without use of accessory muscles. No rales wheezes or rhonchi. Cardiac: Heart demonstrates a regular rate and rhythm. Normal S1 and S2. No murmurs on examination. Pulses: The patient has palpable radial pulses bilaterally that are equal in intensity Extremities: There was no evidence of hypoperfusion. There is no cyanosis or clubbing. There is no edema. Skin: I did not appreciate any rashes on examination today. Data Laboratory Results: Last 24 Hours Test 09/20/16 05:44 09/20/16 05:55 09/20/16 06:34 09/20/16 06:45 White Blood Count K/uL 6.92 K/uL Red Blood Count M/uL 4.66 M/uL Hemoglobin g/dL 14.5 g/dL Hematocrit % 41.7 % Mean Corpuscular Volume fL 89.5 fL Mean Corpuscular Hemoglobin pg 31.1 pg Mean Corpuscular Hemoglobin Concent g/dl 34.8 g/dl Platelet Count K/uL 286 K/uL Mean Platelet Volume fL 8.7 fL Neutrophils (%) (Auto) % 79.3 % Lymphocytes (%) (Auto) % 11.8 % Monocytes (%) (Auto) % 7.9 % Eosinophils (%) (Auto) % 0.3 % Basophils (%) (Auto) % 0.3 % Neutrophils # (Auto) K/uL 5.48 K/uL Lymphocytes # (Auto) K/uL 0.82 K/uL Monocytes # (Auto) K/uL 0.55 K/uL Eosinophils # (Auto) K/uL 0.02 K/uL Basophils # (Auto) K/uL 0.02 K/uL RDW Standard Deviation fL 40.3 fL RDW Coefficient of Variation % 12.5 % Immature Granulocyte % (Auto) % 0.4 % Immature Granulocyte # (Auto) K/uL 0.03 K/uL Nucleated Red Blood Cells % % Urine Color COLORLESS Urine Appearance CLEAR Urine pH 7.0 Urine Specific [place] <= 1.005 Urine Protein NEG Urine Glucose (UA) TRACE Urine Ketones 1+ Urine Occult Blood NEG Urine Nitrite NEG Urine Bilirubin NEG Urine Urobilinogen NEG Urine Leukocyte Esterase NEG Sodium Level 136 mmol/L Potassium Level 3.5 mmol/L Chloride Level 100 mmol/L Carbon Dioxide Level 26 mmol/L Anion Gap 10.0 mmol/L Blood Urea Nitrogen 15 mg/dl Creatinine 1.20 mg/dl Est Creatinine Clear Calc Drug Dose 57.0 ml/min Estimated GFR () 71.6 Estimated GFR (Non- 61.8 BUN/Creatinine Ratio 12.4 Random Glucose 141 mg/dl Calcium Level 9.4 mg/dl Magnesium Level 3.1 mg/dl Total Bilirubin 0.6 mg/dl Aspartate Amino Transf (AST/SGOT) 13 U/L Alanine Aminotransferase (ALT/SGPT) 20 U/L Alkaline Phosphatase 83 U/L Total Creatine Kinase 116 U/L Creatine Kinase MB 1.3 ng/ml Creatine Kinase MB Ratio 1.1 Troponin I < 0.015 ng/ml Total Protein 8.1 gm/dl Albumin 4.6 gm/dl Globulin 3.5 gm/dl Albumin/Globulin Ratio 1.3 Thyroid Stimulating Hormone (TSH) 1.120 uIu/ml Test 09/20/16 11:27 09/20/16 11:40 Prothrombin Time 11.2 SECONDS Prothromb Time International Ratio 1.0 Creatine Kinase MB 1.1 ng/ml Creatine Kinase MB Ratio Troponin I 0.015 ng/ml Bedside Glucose 133 mg/dl Imaging: Chest x-ray was normal. EKG: I reviewed the patient's EKGs obtained in route which demonstrated a narrow complex tachycardia. EKG obtained at that time revealed ST segment depressions diffusely. EKG obtained at the time of arrival revealed sinus rhythm with minor ST segment depressions diffusely Echocardiogram: Patient's echocardiogram performed today revealed preserved LV systolic function without significant valvular disease. 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 He has had only 2 episodes in over a year. While he is symptomatic with the episodes they are generally well tolerated. Overall he seems to be doing well on diltiazem but other options are available. We did briefly discuss the option of catheter based therapy. Ablation would be a good option for permanent treatment of the arrhythmia. However, it seems his current issue is adequate pain control. Do not think therapy much utility and scheduling a procedure or addressing the SVT which is a benign phenomenon in the absence of adequate pain control. Currently he has consumed with adequate pain control. Performing any procedure in the near future would likely require general anesthetic, and likely be compensated by significant pain afterwards. At this point I would not advocate scheduling an ablation. I think his other issues need to be addressed 1st. Should he achieve adequate rate control and have set recurrent SVT with symptoms, catheter based therapy would seem appropriate. I would not change his current medical therapy. Abnormal EKG: Patient is have ST segment changes on the EKG during tachycardia and in sinus rhythm. He did not describe chest pain, although he has pain at several other locations. His cardiac biomarkers are normal. This is despite a fairly extended period of tachycardia. Patient certainly could have occult coronary disease given his comorbidities, but the utility of investigating for coronary disease or even treating coronary disease in the absence of symptoms and LV dysfunction is questionable. Also, given his significant problems with pain control and declining functional status as a result, I feel this would need to be addressed prior to considering any form of additional cardiac testing or intervention. Only the presence of obvious angina, LV dysfunction or acute coronary syndrome with I advocate any additional coronary testing. Use of a daily low-dose aspirin would seem reasonable intervention at this point.
--- NOTE | 2016-09-20 17:11 | Progress Note ---
Progress Note Date of Service Sep 20, 2016. Progress Note Patient continues to complain of severe generalized body ache and has been pacing and complains of being hot and cold. He requests Dilaudid for pain control. Will restart his lorazepam and cautiously use morphine for pain control. Pain consult placed for further Input
[2016-09-20] MEDS: LORAZEPAM 1 MG TAB PO SCH (17:15)
[2016-09-20] MEDS: MoRPHine SULFATE 2 MG/ML CARP IV PRN (17:16)
[2016-09-20] MEDS: ZOLPIDEM TARTRATE 10 MG TAB PO PRN (23:21)
[2016-09-21] VITALS (7 sets, daily range): BP systolic 138–160; BP diastolic 76–84; PULSE 57–84; TEMP 36.6–37.2; O2SAT 95–97
[2016-09-21] MEDS: SODIUM CHLORIDE 0.9% 1000ML 1,000 ML IV SCH ×2 (00:53→13:42)
[2016-09-21] MEDS: LEVOTHYROXINE 25 MCG TAB PO SCH (04:44)
[2016-09-21] MEDS: MoRPHine SULFATE 2 MG/ML CARP IV PRN ×2 (04:44→13:43)
[2016-09-21 07:20] LABS: BASO % 0.3 %; BASO ABS # 0.02 K/uL (0-0.2); COMPLETE YES; EOS % 0.9 %; HEMATOCRIT 38.9 % (42-52); IG% 0.3 %; LYMPH % 10.3 %; LYMPH ABS # 0.77 K/uL (1.2-3.4); MEAN CELL VOLUME 91.5 fL (80-100); MEAN CORPUSCULAR HEMOGLOBIN 31.8 pg (25-34); MEAN CORPUSCULAR HGB CONC 34.7 g/dl (32-36); MEAN PLATELET VOLUME 8.7 fL (7.4-10.4); MONO % 9.3 %; NEUT % 78.9 %; PLATELET COUNT 234 K/uL (130-400); RED BLOOD COUNT 4.25 M/uL (4.7-6.1); WHITE BLOOD COUNT 7.44 K/uL (4.8-10.8)
[2016-09-21] MEDS: CHECK FENTANYL PATCH PLACEMENT SCH ×2 (08:00→16:30)
[2016-09-21 08:03] LABS: BUN/CREATININE RATIO 13.7 (10-20); CALCIUM 8.7 mg/dl (8.5-10.1); CREATININE 0.97 mg/dl (0.60-1.40); MAGNESIUM 2.8 mg/dl (1.8-2.4); POTASSIUM 3.4 mmol/L (3.5-5.1)
[2016-09-21] MEDS: LORAZEPAM 1 MG TAB PO SCH (08:35)
[2016-09-21] MEDS: ASPIRIN 81 MG ECTAB PO SCH (08:35)
[2016-09-21] MEDS: DILTIAZEM HCL 120 MG EXT REL CAP PO SCH (08:36)
[2016-09-21] MEDS: INSULIN ASPART 100 UNITS/ML 3 ML PEN SC SCH ×4 (08:42→21:37)
[2016-09-21] MEDS ORDERED: POTASSIUM CHLORIDE 20 MEQ TABCR PO SCH (09:00)
[2016-09-21] MEDS: VENLAFAXINE HCL XR 37.5 MG CAPXR PO SCH (09:37)
--- NOTE | 2016-09-21 09:43 | Pain Management Consultation ---
Pain Management Consultation Date of Consultation Sep 21, 2016. Reason for Consultation Diffuse pain; medication overdose History Mr. Mace is a 66 year old white male with diffuse pain complaints, predominantly the neck, left scapula, bilateral hands, and bilateral legs. Patient has been on chronic opioids for 10+ years. He states that over the spring his pain has been gradually worsening to which his chronic narcotics including Fentanyl patch 150mcg/hr and Oxycodone 15mg one tablet daily were not effective. A few nights ago his pain was increased and he was unable to sleep so he took Ibuprofen, Benadryl, and 80mg of leftover Methadone from 2013. He felt lethargic afterwards and knew that he was overdosing on medications so he went to the Emergency Department for treatment. He has difficulty describing the pain but is able to say that there is a burning, sharp, numbness. He does have a known syrinx at C7-T2 which is unknown if it could be the cause to his pain. Patient rates his pain a 9/10 currently. He states that his pain has been worsening as he used to be able to push mow his small lawn without problems and this summer he uses a riding mower and his pain is unmanaged for the week after. Patient denies any true radicular pain, extremity weakness. + he does have frequent falls. Case discussed with Dr. 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 (combat [place]) Allergies Coded Allergies: Linaclotide (Verified Allergy, Intermediate, rash, severe diarrhea, swelling, 09/20/16) Tetanus Immune Globulin (Verified Allergy, Unknown, SWELLING, 09/20/16) CI Pigment Blue 63 (Unverified Adverse Reaction, Unknown, UNKNOWN, 09/20/16 ) Duloxetine (Unverified Adverse Reaction, Unknown, UNKNOWN, 09/20/16) Medications Current Inpatient Medications Medications (Trade) Dose Ordered Sig/Yonny Route Start Time Stop Time Status Last Admin Dose Admin Enoxaparin Sodium (Lovenox Inj) 40 mg Q24H SC 09/20/16 12:00 10/20/16 11:59 Sodium Chloride 1,000 ml @ 75 mls/hr [id number] IV 09/20/16 11:30 10/20/16 11:29 09/21/16 00:53 75 MLS/HR Acetaminophen (Tylenol Tab) 650 mg Q4H PRN PO 09/20/16 09:00 10/20/16 08:59 Ondansetron HCl (Zofran Inj) 4 mg Q6H PRN IV 09/20/16 09:00 10/20/16 08:59 Metoprolol Tartrate (Lopressor Iv) 2.5 mg Q6 PRN IV 09/20/16 09:15 10/20/16 09:14 Ioversol (Optiray 320) 125 ml UD PRN IV 09/20/16 09:15 09/24/16 09:14 Diltiazem HCl (TIAzac CAP) 120 mg DAILY PO 09/21/16 09:00 10/21/16 08:59 Docusate Sodium (coLACE CAP) 100 mg BID PRN PO 09/20/16 09:15 10/20/16 09:14 Levothyroxine Sodium (Synthroid Tab) 25 mcg DAILYBB PO 09/21/16 06:00 10/21/16 05:59 09/21/16 04:44 25 MCG Potassium Chloride (Klor-Con Tab) 20 meq DAILY PO 09/21/16 09:00 10/21/16 08:59 Zolpidem Tartrate (Ambien Tab) 5 mg HSZ PRN PO 09/20/16 09:15 10/20/16 09:14 09/20/16 23:21 5 MG Polyethylene (Miralax Powder Packet) 17 gm DAILY PRN PO 09/20/16 09:15 10/20/16 09:14 Miscellaneous Information (Check Fentanyl Patch Placement) 1 ea QS N/A 09/20/16 16:00 10/20/16 15:59 09/20/16 23:22 1 EA Insulin Aspart (novoLOG ASPART) SLIDING SCALE If C... ACHS SC 09/20/16 11:00 10/20/16 10:59 09/20/16 12:29 1 UNITS Glucose (Glucose 40% Gel) 15-30 GRAMS 15 GRAMS... UD PRN PO 09/20/16 09:30 10/20/16 09:29 Glucose (Glucose Chew Tab) 4-8 Tablets 4 Tabl... UD PRN PO 09/20/16 09:30 10/20/16 09:29 Dextrose (Dextrose 50% 50ML Syringe) 25-50ML OF 50% DW IV FOR... UD PRN IV 09/20/16 09:30 10/20/16 09:29 Glucagon (Glucagon Inj) 1 mg UD PRN SQ 09/20/16 09:30 10/20/16 09:29 Fentanyl (Duragesic Patch) 100 mcg Q72H TD 09/22/16 14:00 10/06/16 13:59 Fentanyl (Duragesic Patch) 50 mcg Q72H TD 09/21/16 14:00 10/05/16 13:59 Miscellaneous (Fentanyl Patch Remove & Waste) 1 ea Q3D@1359 N/A 09/21/16 13:59 10/21/16 13:58 Miscellaneous (Fentanyl Patch Remove & Waste) 1 ea Q3D@1359 N/A 09/22/16 13:59 10/22/16 13:58 Lorazepam (Ativan Tab) 1 mg DAILY PO 09/20/16 17:30 10/20/16 17:29 09/20/16 17:15 1 MG Morphine Sulfate (MoRPHine SULFATE INJ) 2 mg Q4H PRN IV 09/20/16 17:00 10/04/16 16:59 09/21/16 04:44 2 MG Aspirin (Ecotrin Tab) 81 mg QAM PO 09/21/16 09:00 10/21/16 08:59 Review of Systems Denies any constitutional, cardiac, pulmonary, neurological, GI, , extremity, endocrine, neuro, ENT, dermatological, or musculoskeletal complaints other than stated in HPI Physical Exam Height & Weight: Height 5 feet, 8.00 inches. Weight 78.000 (Kilograms) 171 (Pounds) Last Vital Signs Documentation Date Time Temp Pulse Resp B/P (MAP) Pulse Ox O2 Delivery O2 Flow Rate FiO2 09/21/16 07:14 37.2 84 20 154/79 (104) 96 Room Air Exam: GENERAL: Mr. Mace is a 66 y/o white male that appears his stated age. Speech is slightly slowed. Cognition is intact. Flat affect. He does not appear to be in any distress. HEAD: Normocephalic; atraumatic. EYES: Pupils are round, equal, and reactive to light; EOM intact. ENT: No external ear discharge or lesions. No rhinorrhea or epistaxis. No mucosal lesions. NECK: Full ROM; diffuse tenderness along the inferior cervical region. Mild spasm along the left scapular region without trigger points noted. CHEST: Regular chest respiration and excursion. EXTREMITIES: Full ROM and 5/5 strength of upper and lower extremities. No focal TTP. BACK: Full ROM. Diffuse non focal tenderness. NEURO: CN II-XII grossly intact with no focal deficits noted. Normal gait. Ambulates without difficulty. SKIN: No lesions, erythema, or rashes noted. Laboratory Laboratory Results (Last CBC): 09/21/16 06:55 Red Blood Count 4.25 L, Mean Corpuscular Volume 91.5, Mean Corpuscular Hemoglobin 31.8, Mean Corpuscular Hemoglobin Concent 34.7, Mean Platelet Volume 8.7, Neutrophils (%) (Auto) 78.9, Lymphocytes (%) (Auto) 10.3, Monocytes (%) ( Auto) 9.3, Eosinophils (%) (Auto) 0.9, Basophils (%) (Auto) 0.3, Neutrophils # ( Auto) 5.87, Lymphocytes # (Auto) 0.77 L, Monocytes # (Auto) 0.69 H, Eosinophils # (Auto) 0.07, Basophils # (Auto) 0.02 [place] Drug Monitoring Program Search Results: patient reviewed within database (persistent with prescription refill dates; prescribers; and pharmacy) Assessment 1. Diffuse pain 2. Chronic opioid dependency 3. Urinary retention 4. Insomnia Recommendations 1. Continue Fentanyl patch 150mcg/hr 2. Will initiate an SNRI, Effexor 37.5mg daily for diffuse pain complaints and depression. 3. Patient has requested for Dilaudid IV for pain as he has had it previously and it has worked. I have explained to the patient that Morphine IV is ordered for his breakthrough pain and will not be changing it. 4. Recommend psychiatry speak to the patient regarding depression and recent medication overdose.
--- NOTE | 2016-09-21 10:02 | Progress Note ---
Internal Med Progress Note Date of Service: Sep 21, 2016. Provider Documentation: SUBJECTIVE: Seen and examined at bedside. States his pain (generalized) is better. Denies any suicidal thoughts. No new complaints Denies SOB. 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 ASSESSMENT & PLAN: SVT: Patient has H/O SVT Received Adenosine by EMS Has T wave changes in inferior leads and ST changes in lateral leads Currently in Sinus tachycardia and denies chest pain Continue PO Cardizem and Aspirin EKG changes likely secondary to SVT cardiac enzymes: x3: negative ECHO: Normal as below Appreciate cardiology Input TSH:wnl May need ablation eventually Urinary Retention: Presents with abdominal pain/pressure sensation, intermittent nausea, vomiting, chronic constipation CT abd: Mild BPH Continue Oliver Appreciate Urology Input Check RPR given h/o Multiple STDs in the past Chronic Pain Syndrome H/O Syringomyelia, Anxiety, Depression, Insomnia Reports that he was evaluated previously and was told not a surgical candidate Overdosed On Methadone, Also took Ibuprofen and Benadryl Continue Lorazepam On chronic Fentanyl patch Consulted pain management for assistance DM II: Diet controlled continue ISS, accu checks check HbA1C HTN: Restart home meds Monitor Hypothyroidism: TSH:wnl Continue levothyroxine ANDRIA: Continue CPAP qhs DVT Px: Lovenox SQ: patient refused COde Status: Full Code DISPOSITION: Monitor in Tele PROCEDURES: CT AND: 1. No acute process within the abdomen or pelvis. 2. No hydronephrosis. Mild enlargement of the prostate. Oliver balloon within the bladder which is collapsed. 3. Fatty liver. ECHO: * There is moderate concentric left ventricular hypertrophy. * Left ventricular systolic function is normal. * Grade I diastolic dysfunction, (abnormal relaxation pattern). Vital Signs: Date Time Temp Pulse Resp B/P (MAP) Pulse Ox O2 Delivery O2 Flow Rate FiO2 09/21/16 07:14 37.2 84 20 154/79 (104) 96 Room Air 09/21/16 04:44 Room Air 09/21/16 04:00 36.9 82 20 138/80 (99) 97 Room Air 09/21/16 00:00 Room Air 09/20/16 23:23 36.6 74 16 131/78 (95) 98 Room Air 09/20/16 20:45 Room Air 09/20/16 19:23 37.3 93 18 166/99 (121) 98 Room Air 09/20/16 16:33 36.8 83 20 161/84 (109) 100 Room Air 09/20/16 16:00 96 Room Air 09/20/16 12:00 96 Room Air 09/20/16 11:40 36.8 90 20 168/98 (121) 99 Room Air Lab Results: Results Past 24 Hours Test 09/20/16 11:27 09/20/16 11:40 09/20/16 16:31 09/20/16 18:15 Range/Units Prothrombin Time 11.2 9.0-12.0 SECONDS Prothromb Time International Ratio 1.0 0.9-1.1 Creatine Kinase MB 1.1 0.5-3.6 ng/ml Creatine Kinase MB Ratio 0-3.0 Troponin I 0.015 0-0.045 ng/ml Bedside Glucose 133 115 70-99 mg/dl Test 09/20/16 18:52 09/20/16 20:22 09/21/16 06:47 09/21/16 06:55 Range/Units Creatine Kinase MB 1.4 0.5-3.6 ng/ml Troponin I < 0.015 0-0.045 ng/ml Bedside Glucose 146 130 70-99 mg/dl White Blood Count 7.44 4.8-10.8 K/uL Red Blood Count 4.25 4.7-6.1 M/uL Hemoglobin 13.5 14.0-18.0 g/dL Hematocrit 38.9 42-52 % Mean Corpuscular Volume 91.5 80-100 fL Mean Corpuscular Hemoglobin 31.8 25-34 pg Mean Corpuscular Hemoglobin Concent 34.7 32-36 g/dl Platelet Count 234 130-400 K/uL Mean Platelet Volume 8.7 7.4-10.4 fL Neutrophils (%) (Auto) 78.9 % Lymphocytes (%) (Auto) 10.3 % Monocytes (%) (Auto) 9.3 % Eosinophils (%) (Auto) 0.9 % Basophils (%) (Auto) 0.3 % Neutrophils # (Auto) 5.87 1.4-6.5 K/uL Lymphocytes # (Auto) 0.77 1.2-3.4 K/uL Monocytes # (Auto) 0.69 0.11-0.59 K/uL Eosinophils # (Auto) 0.07 0-0.5 K/uL Basophils # (Auto) 0.02 0-0.2 K/uL RDW Standard Deviation 43.2 36.4-46.3 fL RDW Coefficient of Variation 12.9 11.5-14.5 % Immature Granulocyte % (Auto) 0.3 % Immature Granulocyte # (Auto) 0.02 0.00-0.02 K/uL Sodium Level 136 136-145 mmol/L Potassium Level 3.4 3.5-5.1 mmol/L Chloride Level 103 98-107 mmol/L Carbon Dioxide Level 25 21-32 mmol/L Anion Gap 8.0 3-11 mmol/L Blood Urea Nitrogen 13 7-18 mg/dl Creatinine 0.97 0.60-1.40 mg/dl Est Creatinine Clear Calc Drug Dose 70.5 ml/min Estimated GFR () 92.6 Estimated GFR (Non- 79.9 BUN/Creatinine Ratio 13.7 10-20 Random Glucose 120 70-99 mg/dl Calcium Level 8.7 8.5-10.1 mg/dl Magnesium Level 2.8 1.8-2.4 mg/dl Test 09/21/16 10:25 09/21/16 10:31 Range/Units
[2016-09-21] MEDS ORDERED: POTASSIUM CHLORIDE 20 MEQ/15 ML UDC PO ONE (10:45)
[2016-09-21 11:03] LABS: ESTIMATED AVERAGE GLUCOSE 140 mg/dl; HA1C FLAG Normal (Normal)
[2016-09-21] MEDS: ENOXAPARIN 40 MG/0.4 ML SYR SC SCH (11:42)
[2016-09-21] MEDS: FENTANYL PATCH REMOVE & WASTE SCH (13:41)
[2016-09-21] MEDS: FENTANYL 50 MCG/HR TDSY TD SCH (13:42)
[2016-09-21] MEDS: POLYETHYLENE (MIRALAX) 17 GM PACK PO PRN (13:44)
[2016-09-21] MEDS: DOCUSATE SODIUM 100 MG CAP PO PRN (13:44)
[2016-09-21] MEDS: ACETAMINOPHEN 325 MG TAB PO PRN (17:20)
[2016-09-21] MEDS: ZOLPIDEM TARTRATE 10 MG TAB PO PRN (22:27)
[2016-09-22] MEDS: SODIUM CHLORIDE 0.9% 1000ML 1,000 ML IV SCH (00:51)
[2016-09-22] MEDS: ACETAMINOPHEN 325 MG TAB PO PRN ×2 (01:00→04:53)
[2016-09-22] MEDS: MoRPHine SULFATE 2 MG/ML CARP IV PRN (02:59)
[2016-09-22 03:27] VITALS: BP 161/97; PULSE 88; TEMP 36.5; O2SAT 98
[2016-09-22] MEDS ORDERED: LORAZEPAM 2 MG/ML 1 ML VIAL IV STA (05:28)
[2016-09-22] MEDS: LEVOTHYROXINE 25 MCG TAB PO SCH (05:33)
[2016-09-22 06:31] LABS: BUN/CREATININE RATIO 13.4 (10-20); CALCIUM 9.1 mg/dl (8.5-10.1); CREATININE 0.79 mg/dl (0.60-1.40); POTASSIUM 3.4 mmol/L (3.5-5.1)
[2016-09-22 07:03] VITALS: BP_SYST 179; BP_SYST 180; BP_DIAS 109; BP_DIAS 96; PULSE 92; TEMP 37; O2SAT 98
[2016-09-22] MEDS: CHECK FENTANYL PATCH PLACEMENT SCH ×4 (08:00→23:48)
[2016-09-22] MEDS ORDERED: POTASSIUM CHLORIDE 20 MEQ/15 ML UDC PO ONE (08:00)
[2016-09-22] MEDS: ASPIRIN 81 MG ECTAB PO SCH (08:38)
[2016-09-22] MEDS: VENLAFAXINE HCL XR 37.5 MG CAPXR PO SCH (08:38)
[2016-09-22] MEDS: LORAZEPAM 1 MG TAB PO SCH ×2 (08:38→20:30)
[2016-09-22] MEDS: DILTIAZEM HCL 120 MG EXT REL CAP PO SCH (08:38)
[2016-09-22] MEDS: INSULIN ASPART 100 UNITS/ML 3 ML PEN SC SCH ×4 (08:40→20:31)
[2016-09-22] MEDS ORDERED: OXYCODONE HCL 15 MG TABCR (OXYCONTIN) PO PRN ×2 (09:45→17:45)
--- NOTE | 2016-09-22 09:54 | Progress Note ---
Internal Med Progress Note Date of Service: Sep 22, 2016. Provider Documentation: SUBJECTIVE: Seen and examined at bedside. States he feels anxious and had was not able sleep well yesterday. Pain is better. Denies any suicidal thoughts. No new complaints Denies SOB, chest pain, palpitations. 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 ASSESSMENT & PLAN: SVT: Patient has H/O SVT Received Adenosine by EMS Has T wave changes in inferior leads and ST changes in lateral leads Currently in Sinus tachycardia and denies chest pain Continue PO Cardizem and Aspirin EKG changes likely secondary to SVT cardiac enzymes: x3: negative ECHO: Normal as below Appreciate cardiology Input TSH:wnl May need ablation eventually Urinary Retention: Presents with abdominal pain/pressure sensation, intermittent nausea, vomiting, chronic constipation CT abd: Mild BPH Continue Oliver Appreciate Urology Input h/o Multiple STDs in the past, PRP: negative Chronic Pain Syndrome H/O Syringomyelia, Anxiety, Depression, Insomnia Reports that he was evaluated previously and was told not a surgical candidate Overdosed On Methadone, Also took Ibuprofen and Benadryl Continue Lorazepam 1mg QID On chronic Fentanyl patch 150mg Q72H Pain management following Ambien 10mg QH On Oxycodone 15mg Q6H PRN Discussed with 's staff and confirmed his home medications on 09/22/16 Await for Psychiatry Input DC IV morphine DM II: Diet controlled continue ISS, accu checks check HbA1C HTN: Restart home meds Monitor Hypothyroidism: TSH:wnl Continue levothyroxine ANDRIA: Continue CPAP qhs DVT Px: Lovenox SQ: patient refused COde Status: Full Code DISPOSITION: Monitor in Tele Follow up with (PCP) on 09/25/16 at 10:40AM Follow up with Urology in 1 week as advised Follow up with your filter filler per recommendations from your PCP PROCEDURES: CT AND: 1. No acute process within the abdomen or pelvis. 2. No hydronephrosis. Mild enlargement of the prostate. Oliver balloon within the bladder which is collapsed. 3. Fatty liver. ECHO: * There is moderate concentric left ventricular hypertrophy. * Left ventricular systolic function is normal. * Grade I diastolic dysfunction, (abnormal relaxation pattern). Vital Signs: Date Time Temp Pulse Resp B/P (MAP) Pulse Ox O2 Delivery O2 Flow Rate FiO2 09/22/16 07:03 37.0 92 20 179/109 (132) 98 Room Air 180/96 (124) 09/22/16 04:00 Room Air 09/22/16 03:27 36.5 88 20 161/97 (118) 98 Room Air 09/21/16 23:59 Room Air 09/21/16 23:26 36.6 74 20 138/78 (98) 95 Room Air 09/21/16 20:00 Room Air 09/21/16 16:08 36.8 57 18 142/76 (98) 96 Room Air 09/21/16 16:00 96 Room Air 09/21/16 14:36 71 96 09/21/16 12:00 Room Air 09/21/16 11:30 36.9 81 20 160/84 (109) 97 Room Air Lab Results: Results Past 24 Hours Test 09/21/16 10:25 09/21/16 10:31 09/21/16 11:29 09/21/16 16:06 Range/Units Rapid Plasma Reagin NONREACTIVE NONREACT Estimated Average Glucose 140 mg/dl Hemoglobin A1c 6.5 4.5-5.6 % Bedside Glucose 120 90 70-99 mg/dl Test 09/21/16 20:50 09/22/16 05:44 09/22/16 07:15 Range/Units Bedside Glucose 131 132 70-99 mg/dl Sodium Level 134 136-145 mmol/L Potassium Level 3.4 3.5-5.1 mmol/L Chloride Level 100 98-107 mmol/L Carbon Dioxide Level 25 21-32 mmol/L Anion Gap 9.0 3-11 mmol/L Blood Urea Nitrogen 11 7-18 mg/dl Creatinine 0.79 0.60-1.40 mg/dl Est Creatinine Clear Calc Drug Dose 86.6 ml/min Estimated GFR () 106.9 Estimated GFR (Non- 92.3 BUN/Creatinine Ratio 13.4 10-20 Random Glucose 134 70-99 mg/dl Calcium Level 9.1 8.5-10.1 mg/dl
[2016-09-22 11:00] VITALS: BP 151/90; PULSE 85; TEMP 36.9; O2SAT 94
[2016-09-22] MEDS: ENOXAPARIN 40 MG/0.4 ML SYR SC SCH (12:59)
[2016-09-22] MEDS ORDERED: LORAZEPAM 1 MG TAB PO SCH (13:00)
[2016-09-22] MEDS ORDERED: FENTANYL PATCH REMOVE & WASTE SCH ×2 (13:59)
[2016-09-22] MEDS ORDERED: FENTANYL 100 MCG/HR TDSY TD SCH (14:00)
--- NOTE | 2016-09-22 14:25 | Psychiatric Consultation ---
Consultation Date of Consultation Sep 22, 2016. Identifying Data Bc Mace is a 66-year-old man with multiple medical conditions who presented to the hospital with possible overdose and found to have had SVT. We are consulted to evaluate depression. Information is gathered from the patient , his was at the bedside, and the electronic medical record. All are considered to be reliable. Chief Complaint "Depression goes with chronic pain". History of Present Illness The patient is a 66-year-old man from [facility], with medical conditions including type 2 diabetes, coronary artery disease, hypertension, hypothyroidism, obstructive sleep apnea, urinary retention, syringomyelia with chronic pain and history of SVT, who reports that his pain has been worsening and in that light had been taking more of his OxyContin that is currently prescribed by Dr. Grant in [place]. He receives 30 pills per month and he used them all up in 17 days. Yesterday he resorted to using an old bottle of methadone from 2013 in addition to ibuprofen and Benadryl. He became lightheaded, checked his blood pressure and was hypotensive at 90/40 and so he called EMS. He was found to be in SVT in the ER and given a dentist seen. He also reported urinary retention, has been seen by urology and currently has an indwelling Oliver. The patient reports that he has had chronic pain since 1994. He has been seen by pain management in the past and has had multiple interventional procedures including a TENS unit, steroid injections, massage therapy, acupuncture, chiropractics, none of which provided sustained relief. He currently has his pain managed by Dr. Mccall' office alone. He says that he had a ruptured appendix in 2010 and since that time his pain has been worsening. He experiences pain in his shoulders, legs, neck and active. He is currently prescribed fentanyl patches, OxyContin. He reports a very depressed mood, rated a 2-4 out of 10 with 10 being the best mood ever. He says his mood "hasn't been good for a long time". He reports anxiety and takes Ativan 1 mg 4 times daily and has done so for several years. He denies that his anxiety rises to the level of panic attacks. He reports that his sleep is disturbed but better when he takes Ambien 10 mg at bedtime which she also has taken for many years. He admits that he sometimes takes extra Ambien because he also finds it helpful for his nerves. With medicines he gets 4-5 hours of sleep per night and rarely naps during the day. He endorses having suicidal thoughts but denies plan or intent and says he would not do that to his . His appetite is been down and he has lost 20 pounds over the course of the last 6 months. He experiences anxiety daily. He also thinks that he was an anxious person prior to having chronic pain. He served in [place] but denies any PTSD symptoms. He denies auditory or visual hallucinations. He denies any discrete episodes of euphoric mood, sleeplessness or pleasure seeking behaviors that would be congruent with a bipolar disorder. His says that she sees that he has some compulsion to do projects. He chronically has to have something that he is doing around the house. He denies that these in anyway resemble compulsive behaviors. Past Psychiatric History Current OP Treatment: no current treatment Prior OP Treatment: no prior treatment Prior Psych Hospitalizations: none Suicide Attempts: No Past Medication Trials Cymbalta- ineffective Zoloft-palpitations Gabapentin-shaking Past Medical/Surgical History History of Concussion/Seizure: No (1) Hypothyroidism (2) Obstructive sleep apnea (3) Chronic pain (4) Migraines (5) Urinary retention (6) SVT (supraventricular tachycardia) (7) Syringomyelia (8) Diabetes (9) HTN (hypertension) Allergies Allergies: Coded Allergies: Linaclotide (Verified Allergy, Intermediate, rash, severe diarrhea, swelling, 09/20/16) Tetanus Immune Globulin (Verified Allergy, Unknown, SWELLING, 09/20/16) CI Pigment Blue 63 (Unverified Adverse Reaction, Unknown, UNKNOWN, 09/20/16 ) Duloxetine (Unverified Adverse Reaction, Unknown, UNKNOWN, 09/20/16) Home Medications Scheduled Cholecalciferol (Vitamin D3), 5,000 UNITS PO DAILY Digestive Enzymes (Papaya Enzyme), 8 TABS PO TIDM Diltiazem Hcl Extended Release (Diltiazem Hcl Er), 1 CAP PO DAILY Diphenhydramine Hcl (Benadryl), 50 MG PO DIRECTED Docusate Sodium (Docusate Sodium), 100 MG PO TID Fentanyl (Fentanyl), 1 PATCH TD 48 HRS Fentanyl (Fentanyl), 50 MCG TD Q48HR Levothyroxine Sodium (Levothyroxine Sodium), 25 MCG PO DAILY Lorazepam (Ativan), 1 MG PO DAILY Magnesium Hydroxide (Milk Of Magnesia), 2 TBS PO DAILY Potassium Chloride (Klor-Con M20), 20 MEQ PO DAILY Zolpidem Tartrate (Ambien), 10 MG PO HS Scheduled PRN Ibuprofen Tab (Motrin), 400 MG PO DIRECTED PRN for Pain Methadone Hcl (Dolophine), 10 MG PO Q8 PRN for Pain Oxycodone Hcl (Roxicodone), 15 MG PO DAILY PRN for Pain Polyethylene Glycol 3350 (Miralax), 17 GM PO DAILY PRN for Constipation Family History No pertinent family history The patient is adopted and has no knowledge of his biological family Alcohol Use Alcohol Use In Past 12 Months: Yes Reports very little alcohol use. Last use was several beers 2-3 months ago. He denies that he is ever used substances. 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 Relationship History: (twice, the first marriage lasting less than 90 days and he has been to his current for 14 years) Children: no biological children but 3 stepchildren Legal History: none Psychological Trauma History: Denies Hx Traumatic Event Review of Systems Constitutional: malaise Eyes: denies: no symptoms, as stated in HPI, eye pain, tearing, itching, redness, discharge, double vision, visual changes, blurred vision, photophobia, other ENT: denies: no symptoms reported, see HPI, ear pain, ear discharge, loss of hearing, tinnitus, nasal pain, nasal congestion, rhinorrhea, epistaxis, sore throat, stidor, throat swelling, mouth pain, mouth swelling, dental pain, gum swelling, other Cardiovascular: denies: no symptoms reported, see HPI, chest pain, chest tightness, chest pressure, diaphoresis, palpitations, syncope, other Respiratory: denies: no symptoms reported, see HPI, cough, orthopnea, short of breath, stridor, wheezing, sputum production, cyanosis, ORTEZ, PND, other Gastrointestinal: constipation Genitourinary - Male: reports: other (urinary retention with current Oliver) Musculoskeletal: other (pain at multiple sites including neck, shoulders, back , arms, legs and feet) Integumentary: denies no symptoms reported, denies see HPI, denies change in color, denies change in hair/nails, denies dryness, denies lesions, denies lumps , denies rash, denies other Neurologic: reports: numbness, tingling (in his neck and arms) Endocrine: denies: no symptoms, as stated in HPI, cold intolerance, heat intolerance, hair changes, goiter, polydipsia, polyuria, skin changes, other Hematologic / Lymphatic: denies: no symptoms, as stated in HPI, abnormal clotting, adenopathy, anemia, easy bleeding, easy bruising, gums bleeding, petechiae, other Examination Physical Examination As per Dr. Gallego Vital Signs Vital Signs Past 12 Hours Date Time Temp Pulse Resp B/P (MAP) Pulse Ox O2 Delivery O2 Flow Rate FiO2 09/22/16 12:00 Room Air 09/22/16 11:00 36.9 85 20 151/90 (110) 94 Room Air 09/22/16 08:00 Room Air 09/22/16 07:03 37.0 92 20 179/109 (132) 98 Room Air 180/96 (124) 09/22/16 04:00 Room Air 09/22/16 03:27 36.5 88 20 161/97 (118) 98 Room Air Laboratory Results Last 24 Hours Test 09/21/16 16:06 09/21/16 20:50 09/22/16 05:44 09/22/16 07:15 Bedside Glucose 90 mg/dl 131 mg/dl 132 mg/dl Sodium Level 134 mmol/L Potassium Level 3.4 mmol/L Chloride Level 100 mmol/L Carbon Dioxide Level 25 mmol/L Anion Gap 9.0 mmol/L Blood Urea Nitrogen 11 mg/dl Creatinine 0.79 mg/dl Est Creatinine Clear Calc Drug Dose 86.6 ml/min Estimated GFR () 106.9 Estimated GFR (Non- 92.3 BUN/Creatinine Ratio 13.4 Random Glucose 134 mg/dl Calcium Level 9.1 mg/dl Test 09/22/16 10:58 Bedside Glucose 126 mg/dl Mental Examination During interview pt is: alert and oriented, cooperative Appearance: appropriately dressed Eye contact is: good Motor behavior is: no abnormal motor movements Speech: normal in rate, rhythm & volume Affect: depressed, flat Mood is: depressed, irritable Thought process: goal directed Thought content: reality based without delusions Suicidal thought are: present, Plan: denied, Intent: denied Homicidal thoughts are: denied Hallucinations: denies auditory, denies visual Cognition: memory grossly intact, attention grossly intact, language grossly intact Intelligence estimated to be: average Insight: poor Judgement: poor Impression / Recommendations Impression 66-year-old gentleman with multiple medical problems including chronic pain, admitted after taking methadone with other medications resulting in hypertension and SVT. He has a complicated picture with many problems including. 1. Medication abuse-the patient has kept a several year old prescription for methadone which is contraindicated in view of his other controlled substances. One side effect of methadone can be ventricular tachycardia. I have recommended to his that she destroy the prescription. He was also overusing OxyContin and Ambien. I would like to try to get him off of Ambien by substituting Remeron 30 mg at bedtime tonight and cutting the Ambien back to 5 mg only when necessary. I have spoken with his attending who is agreeable to keeping him in the hospital until as late as Sunday so that we can try these medication changes. A copy of this consult should be sent to Dr. Mccall's office. The patient is also taking Ativan in addition to opiates which is a relative contraindication. Would recommend tapering down Ativan to 1 mg 3 times a day with further tapering as an outpatient. 2. Major depressive disorder-the patient admits to severe depression with suicidal thoughts but no plan or intent. He has not been in therapy before and does not see a psychiatrist. At this point he is agreeable to a referral if they accept his insurances. Will check with Eva to see if we have both an available prescriber and a therapist. I agree with starting Effexor for this patient which will serve depression, anxiety and pain management. I will take the liberty of increasing this to 75 mg daily. I have warned him that he will likely need higher doses of this medication. I do not think that he requires inpatient mental health treatment as he has only had suicidal thinking. His at the bedside feel safe taking him home when he is stable. He reports sleep is a big issue and occasionally abuses more Ambien. I'm going to try Remeron 30 mg at bedtime and cut Ambien back to 5 mg when necessary only 3. Chronic pain-has been seen by pain management here. He is medication focused as he believes that no other interventions have ever worked. I have reinforced some very basic interventions including maintaining mobility, relaxation, and taking the Effexor as prescribed as this will also help with pain management. I have queried the [facility] site and see that all of his controlled substances are prescribed by Dr. Grant's office. I will leave other recommendations to pain management however I do think that he is at risk of ongoing abuse of controlled substances and he should be limited to the degree possible. 4. Anxiety-although the patient denies symptoms of OCD, his describes a very compulsive style to him. 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 He experiences anxiety on a daily basis. He has not tolerated one trial of an SSRI in the past. Hopefully the Effexor XR will serve his anxiety as well. I have tried to talk with him about the Ativan and the fact that he is likely tolerant to its effects. I am recommending we reduce this to 1 mg 3 times a day and follow-up with psychiatry for further tapering. Inventory Assets Strengths: Support from Needs: To take medications only as prescribed Risk Factors Assessment Male: Yes : Yes /single/: No Higher / Fall in social status: No Health problems: Yes Mental Health Diagnoses: Yes Substance use disorders: Yes (taking more prescribed opiates and Ambien than prescribed) Previous attempt: No Family history of suicide: No Previous psychiatric stay: No Smoker: No Protective Factors Assessment : Yes Responsible for young children: No Employed: No Stable relationships: Yes Supportive family: Yes Recommendations (1) Major depressive disorder, recurrent, moderate Please see discussion above (2) Anxiety disorder, unspecified Please see discussion above (3) Misuse of prescription only drugs Please see discussion above Has been reviewed with Dr. Romina owens
[2016-09-22] MEDS ORDERED: ZOLPIDEM TARTRATE 5 MG TAB PO PRN (14:30)
[2016-09-22 16:19] VITALS: BP 148/88; PULSE 76; TEMP 36.8; O2SAT 93
[2016-09-22 20:00] VITALS: BP 164/85; PULSE 79; TEMP 36.4; O2SAT 92
[2016-09-22] MEDS: MIRTAZAPINE TAB 15 MG TAB PO SCH (20:23)
[2016-09-22] MEDS ORDERED: ZOLPIDEM TARTRATE 10 MG TAB PO PRN (22:00)
[2016-09-22 23:53] VITALS: BP 159/93; PULSE 74; TEMP 36.5; O2SAT 93
[2016-09-23] VITALS (8 sets, daily range): BP systolic 126–171; BP diastolic 80–104; PULSE 75–84; TEMP 36.4–36.9; O2SAT 93–97
[2016-09-23] MEDS: ACETAMINOPHEN 325 MG TAB PO PRN (02:51)
[2016-09-23] MEDS: LEVOTHYROXINE 25 MCG TAB PO SCH (05:59)
[2016-09-23 07:02] LABS: MEAN CELL VOLUME 89.1 fL (80-100); MEAN CORPUSCULAR HEMOGLOBIN 31.5 pg (25-34); MEAN CORPUSCULAR HGB CONC 35.4 g/dl (32-36); MEAN PLATELET VOLUME 8.8 fL (7.4-10.4); PLATELET COUNT 250 K/uL (130-400); WHITE BLOOD COUNT 5.27 K/uL (4.8-10.8)
[2016-09-23 07:34] LABS: BUN/CREATININE RATIO 12.2 (10-20); CALCIUM 9.3 mg/dl (8.5-10.1); CREATININE 0.93 mg/dl (0.60-1.40); POTASSIUM 3.7 mmol/L (3.5-5.1)
[2016-09-23] MEDS: INSULIN ASPART 100 UNITS/ML 3 ML PEN SC SCH ×4 (08:02→20:51)
[2016-09-23] MEDS: POLYETHYLENE (MIRALAX) 17 GM PACK PO PRN (08:05)
[2016-09-23] MEDS: DOCUSATE SODIUM 100 MG CAP PO PRN (08:06)
[2016-09-23] MEDS: LORAZEPAM 1 MG TAB PO SCH ×3 (08:06→20:47)
[2016-09-23] MEDS: VENLAFAXINE HCL XR 75 MG CAPXR PO SCH (08:06)
[2016-09-23] MEDS: DILTIAZEM HCL 120 MG EXT REL CAP PO SCH (08:07)
[2016-09-23] MEDS: ASPIRIN 81 MG ECTAB PO SCH (08:07)
[2016-09-23] MEDS: CHECK FENTANYL PATCH PLACEMENT SCH ×2 (08:10→17:07)
[2016-09-23] MEDS ORDERED: LISINOPRIL 5 MG TAB PO SCH (09:00)
--- NOTE | 2016-09-23 09:06 | Progress Note ---
Internal Med Progress Note Date of Service: Sep 23, 2016. Provider Documentation: SUBJECTIVE: Seen and examined at bedside. Pain is controlled and says feeling better Still feels anxious. Denies any suicidal thoughts. No new complaints Denies SOB, chest pain, palpitations. 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 ASSESSMENT & PLAN: Anxiety/Major Depression Insomnia Medication abuse Denies suicidal thoughts Continue Ambien, Effexor, Remeron, Ativan per Psychiatry recommendations Appreciate Psychiatry Input SVT: Patient has H/O SVT Received Adenosine by EMS Has T wave changes in inferior leads and ST changes in lateral leads Currently in Sinus Continue PO Cardizem, BB and Aspirin EKG changes likely secondary to SVT cardiac enzymes: x3: negative ECHO: Normal as below Appreciate cardiology Input TSH:wnl May need ablation eventually Urinary Retention: Presents with abdominal pain/pressure sensation, intermittent nausea, vomiting, chronic constipation CT abd: Mild BPH Continue Oliver Appreciate Urology Input h/o Multiple STDs in the past, PRP: negative Plan to DC Oliver on 09/25/16 Chronic Pain Syndrome H/O Syringomyelia Reports that he was evaluated previously and was told not a surgical candidate Overdosed On Methadone, Also took Ibuprofen and Benadryl Continue Fentanyl patch 150mg Q72H Appreciate Pain management Input On Oxycodone 15mg PRN Discussed with 's staff and confirmed his home medications on 09/22/16 DM II: Diet controlled continue ISS, accu checks HbA1C:6.5 HTN: Uncontrolled Continue Cardizem Will start on Lisinopril Monitor Hypothyroidism: TSH:wnl Continue levothyroxine ANDRIA: Continue CPAP qhs DVT Px: Lovenox SQ: patient refused COde Status: Full Code DISPOSITION: Monitor in Tele Follow up with (PCP) on 09/25/16 at 10:40AM Follow up with Urology on 09/25/16 Follow up with your nuclear auxiliary operator per recommendations from your PCP PROCEDURES: CT AND: 1. No acute process within the abdomen or pelvis. 2. No hydronephrosis. Mild enlargement of the prostate. Oliver balloon within the bladder which is collapsed. 3. Fatty liver. ECHO: * There is moderate concentric left ventricular hypertrophy. * Left ventricular systolic function is normal. * Grade I diastolic dysfunction, (abnormal relaxation pattern). Vital Signs: Date Time Temp Pulse Resp B/P (MAP) Pulse Ox O2 Delivery O2 Flow Rate FiO2 09/23/16 08:28 36.4 84 16 171/104 (126) 95 Room Air 165/95 (118) 09/23/16 08:00 96 Room Air 09/23/16 04:00 Room Air 09/23/16 03:29 36.8 75 18 151/87 (108) 96 Room Air 09/22/16 23:59 Room Air 09/22/16 23:53 36.5 74 16 159/93 (115) 93 Room Air 09/22/16 20:00 Room Air 09/22/16 20:00 36.4 79 18 164/85 (111) 92 Room Air 09/22/16 16:19 36.8 76 18 148/88 (108) 93 Room Air 09/22/16 16:00 Room Air 09/22/16 12:00 Room Air Lab Results: Results Past 24 Hours Test 09/22/16 16:17 09/22/16 19:59 09/23/16 06:23 09/23/16 06:45 Range/Units Bedside Glucose 108 124 113 70-99 mg/dl White Blood Count 5.27 4.8-10.8 K/uL Red Blood Count 4.60 4.7-6.1 M/uL Hemoglobin 14.5 14.0-18.0 g/dL Hematocrit 41.0 42-52 % Mean Corpuscular Volume 89.1 80-100 fL Mean Corpuscular Hemoglobin 31.5 25-34 pg Mean Corpuscular Hemoglobin Concent 35.4 32-36 g/dl RDW Standard Deviation 39.9 36.4-46.3 fL RDW Coefficient of Variation 12.5 11.5-14.5 % Platelet Count 250 130-400 K/uL Mean Platelet Volume 8.8 7.4-10.4 fL Sodium Level 134 136-145 mmol/L Potassium Level 3.7 3.5-5.1 mmol/L Chloride Level 99 98-107 mmol/L Carbon Dioxide Level 28 21-32 mmol/L Anion Gap 7.0 3-11 mmol/L Blood Urea Nitrogen 11 7-18 mg/dl Creatinine 0.93 0.60-1.40 mg/dl Est Creatinine Clear Calc Drug Dose 73.5 ml/min Estimated GFR () 97.4 Estimated GFR (Non- 84.1 BUN/Creatinine Ratio 12.2 10-20 Random Glucose 111 70-99 mg/dl Calcium Level 9.3 8.5-10.1 mg/dl Test 09/23/16 11:12 Range/Units Bedside Glucose 138 70-99 mg/dl
[2016-09-23] MEDS ORDERED: TPRSR25 PO (11:36)
[2016-09-23] MEDS ORDERED: FENTANYL PATCH REMOVE & WASTE SCH ×2 (11:59)
[2016-09-23] MEDS: ENOXAPARIN 40 MG/0.4 ML SYR SC SCH (12:39)
[2016-09-23] MEDS: MIRTAZAPINE TAB 15 MG TAB PO SCH (20:47)
[2016-09-24] VITALS (7 sets, daily range): BP systolic 117–153; BP diastolic 70–83; PULSE 68–82; TEMP 36.4–37.1; O2SAT 91–97
[2016-09-24] MEDS: LEVOTHYROXINE 25 MCG TAB PO SCH (06:17)
[2016-09-24 07:06] LABS: CALCIUM 9.1 mg/dl (8.5-10.1); CREATININE 0.93 mg/dl (0.60-1.40); POTASSIUM 3.4 mmol/L (3.5-5.1)
[2016-09-24] MEDS ORDERED: POTASSIUM CHLORIDE 20 MEQ/15 ML UDC PO STA (07:52)
--- NOTE | 2016-09-24 08:20 | Progress Note ---
Internal Med Progress Note Date of Service: Sep 24, 2016. Provider Documentation: SUBJECTIVE: Seen and examined at bedside. States feeling much better today Slept well overnight Anxiety and pain better No new complaints Denies any suicidal thoughts. 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 ASSESSMENT & PLAN: Anxiety/Major Depression Insomnia Medication abuse Denies suicidal thoughts Continue Ambien, Effexor, Remeron, Ativan per Psychiatry recommendations Appreciate Psychiatry Input Sleeping better with medication changes Discussed with today SVT: Patient has H/O SVT Received Adenosine by EMS Has T wave changes in inferior leads and ST changes in lateral leads Currently in Sinus Continue PO Cardizem, Aspirin EKG changes likely secondary to SVT cardiac enzymes: x3: negative ECHO: Normal as below Appreciate cardiology Input TSH:wnl May need ablation eventually if recurrent Currently in Sinus Urinary Retention: Resolved Presents with abdominal pain/pressure sensation, intermittent nausea, vomiting, chronic constipation CT abd: Mild BPH DC Oliver today Appreciate Urology Input h/o Multiple STDs in the past, PRP: negative Had voiding trial today Chronic Pain Syndrome H/O Syringomyelia Reports that he was evaluated previously and was told not a surgical candidate Overdosed On Methadone, Also took Ibuprofen and Benadryl Continue Fentanyl patch 150mg Q72H Appreciate Pain management Input On Oxycodone 15mg PRN Discussed with 's staff and confirmed his home medications on 09/22/16 DM II: Diet controlled continue ISS, accu checks HbA1C:6.5 HTN: controlled Continue Cardizem Monitor Hypothyroidism: TSH:wnl Continue levothyroxine ANDRIA: Continue CPAP qhs DVT Px: Lovenox SQ: patient refused COde Status: Full Code DISPOSITION: Monitor in Tele Follow up with (PCP) on 09/25/16 at 10:40AM Follow up with Urology as needed if your symptoms reoccur Follow up with your customer development representative per recommendations from your PCP Seek immediate medical attention if your symptoms reoccur or worsen PROCEDURES: CT AND: 1. No acute process within the abdomen or pelvis. 2. No hydronephrosis. Mild enlargement of the prostate. Oliver balloon within the bladder which is collapsed. 3. Fatty liver. ECHO: * There is moderate concentric left ventricular hypertrophy. * Left ventricular systolic function is normal. * Grade I diastolic dysfunction, (abnormal relaxation pattern). Vital Signs: Date Time Temp Pulse Resp B/P (MAP) Pulse Ox O2 Delivery O2 Flow Rate FiO2 09/24/16 12:55 37.1 82 16 117/70 (86) 91 Room Air 09/24/16 12:00 95 Room Air 09/24/16 08:13 36.4 81 16 153/82 (105) 97 Room Air 09/24/16 08:00 96 Room Air 09/24/16 04:00 Room Air 09/24/16 04:00 36.7 73 16 129/83 (98) 96 Room Air 09/24/16 00:37 36.7 68 18 119/73 (88) 93 09/24/16 00:00 Room Air 09/23/16 20:13 36.8 75 18 140/86 (104) 93 Room Air 09/23/16 20:00 Room Air 09/23/16 17:18 36.8 81 18 126/80 (95) 94 Room Air 09/23/16 16:00 95 Room Air Lab Results: Results Past 24 Hours Test 09/23/16 20:08 09/24/16 06:09 09/24/16 06:35 09/24/16 11:44 Range/Units Bedside Glucose 193 103 116 70-99 mg/dl Sodium Level 136 136-145 mmol/L Potassium Level 3.4 3.5-5.1 mmol/L Chloride Level 100 98-107 mmol/L Carbon Dioxide Level 32 21-32 mmol/L Anion Gap 4.0 3-11 mmol/L Blood Urea Nitrogen 15 7-18 mg/dl Creatinine 0.93 0.60-1.40 mg/dl Est Creatinine Clear Calc Drug Dose 73.5 ml/min Estimated GFR () 97.4 Estimated GFR (Non- 84.1 BUN/Creatinine Ratio 16.0 10-20 Random Glucose 113 70-99 mg/dl Calcium Level 9.1 8.5-10.1 mg/dl
[2016-09-24] MEDS ORDERED: NURSING VERBAL MED ORDER ONE (08:45)
[2016-09-24] MEDS: LORAZEPAM 1 MG TAB PO SCH ×2 (08:55→14:19)
[2016-09-24] MEDS: POLYETHYLENE (MIRALAX) 17 GM PACK PO PRN (08:56)
[2016-09-24] MEDS: DOCUSATE SODIUM 100 MG CAP PO PRN (08:56)
[2016-09-24] MEDS: VENLAFAXINE HCL XR 75 MG CAPXR PO SCH (08:57)
[2016-09-24] MEDS: ASPIRIN 81 MG ECTAB PO SCH (08:57)
[2016-09-24] MEDS: DILTIAZEM HCL 120 MG EXT REL CAP PO SCH (08:57)
[2016-09-24] MEDS: CHECK FENTANYL PATCH PLACEMENT SCH ×2 (08:58)
[2016-09-24] MEDS ORDERED: METOPROLOL SUCC 25MG EXT REL TAB PO SCH (09:00)
[2016-09-24] MEDS ORDERED: CIPROFLOXACIN 500 MG TAB PO ONE (09:00)
[2016-09-24] MEDS ORDERED: LISINOPRIL 2.5 MG TAB PO SCH ×2 (09:00)
[2016-09-24] MEDS: INSULIN ASPART 100 UNITS/ML 3 ML PEN SC SCH ×2 (09:02→12:27)
--- NOTE | 2016-09-24 10:26 | Progress Note ---
Subjective Date of Service: Sep 24, 2016. Subjective suggest void trial prior to discharge. one dose oral cipro to cover the bacteriuria acquired these last [address] in [address]. If fails void trial replace 16 fr coude hoang and send home. Problem List Medical Problems: (1) Abdominal pain Status: Acute (2) Acute electrocardiogram changes Status: Acute (3) Constipation Status: Acute (4) Hypokalemia Status: Acute (5) SVT (supraventricular tachycardia) Status: Acute (6) Urinary retention Status: Acute Objective Vital Signs Date Time Temp Pulse Resp B/P (MAP) Pulse Ox O2 Delivery O2 Flow Rate FiO2 09/24/16 08:13 36.4 81 16 153/82 (105) 97 Room Air 09/24/16 04:00 Room Air 09/24/16 04:00 36.7 73 16 129/83 (98) 96 Room Air 09/24/16 00:37 36.7 68 18 119/73 (88) 93 09/24/16 00:00 Room Air 09/23/16 20:13 36.8 75 18 140/86 (104) 93 Room Air 09/23/16 20:00 Room Air 09/23/16 17:18 36.8 81 18 126/80 (95) 94 Room Air 09/23/16 16:00 95 Room Air 09/23/16 12:12 36.9 79 16 140/82 (101) 93 Room Air 09/23/16 12:00 97 Room Air Laboratory Results Last 24 Hours Test 09/23/16 11:12 09/23/16 20:08 09/24/16 06:09 09/24/16 06:35 Bedside Glucose 138 mg/dl 193 mg/dl 103 mg/dl Sodium Level 136 mmol/L Potassium Level 3.4 mmol/L Chloride Level 100 mmol/L Carbon Dioxide Level 32 mmol/L Anion Gap 4.0 mmol/L Blood Urea Nitrogen 15 mg/dl Creatinine 0.93 mg/dl Est Creatinine Clear Calc Drug Dose 73.5 ml/min Estimated GFR () 97.4 Estimated GFR (Non- 84.1 BUN/Creatinine Ratio 16.0 Random Glucose 113 mg/dl Calcium Level 9.1 mg/dl Assessment and Plan urinary retention suspected to be associated with med overdose plan void trial today
[2016-09-24] MEDS: ENOXAPARIN 40 MG/0.4 ML SYR SC SCH (12:00)
[2016-09-24] MEDS ORDERED: NON-FORMULARY MEDICATION SCH (12:45)
[2016-09-24] MEDS ORDERED: MIRTAZAPINE TAB 15 MG TAB PO SCH (13:00)
[2016-09-24] MEDS ORDERED: LORAZEPAM 1 MG TAB PO SCH (13:00)
[2016-09-24] MEDS ORDERED: VENLAFAXINE HCL XR 75 MG CAPXR PO SCH (13:00)
[2016-09-24] MEDS ORDERED: OXYCODONE HCL 15 MG TABCR (OXYCONTIN) PO SCH (13:15)
--- NOTE | 2016-09-24 13:25 | Discharge Instructions ---
Discharge Instructions Date of Service Sep 24, 2016. Admission Reason for Admission: Svt, Urinary Retention Discharge Discharge Diagnosis / Problem: SVT, Urinary Retention, Chronic Pian Syndrome Discharge Goals Goal(s): Decrease discomfort, Improve function Activity Recommendations Activity Limitations: resume your previous activity Exercise/Sports Limitations: as tolerated . Instructions / Follow-Up Instructions / Follow-Up Follow up with (PCP) on 09/25/16 at 10:40 AM Follow up with your Psychiatrist in 2-3 weeks as advised Follow up with Urology as needed if your symptoms reoccur Follow up with your court operations clerk per recommendations from your PCP Seek immediate medical attention if your symptoms reoccur or worsen Current Hospital Diet Patient's current hospital diet: Diabetes Type 2 Diet, AHA Diet (Heart Healthy) Discharge Diet Recommended Diet: AHA Diet (Heart Healthy), Diabetes Type 2 Diet Pending Studies Studies pending at discharge: no Laboratory Results Hemoglobin A1c Test 09/21/16 10:31 Range/Units Estimated Average Glucose 140 mg/dl Hemoglobin A1c 6.5 H 4.5-5.6 % Medical Emergencies . Who to Call and When: Medical Emergencies: If at any time you feel your situation is an emergency, please call 911 immediately. . Non-Emergent Contact Non-Emergency issues call your: Primary Care Provider, Driller'S Assistant, Urologist Call Non-Emergent contact if: you have a fever, your pain is not controlled, your pain is worsening, your pain is unusual for you, you have any medication questions If your symptoms reoccur or worsen . . "Provider Documentation" section prepared by Daniel Gallego. . VTE Core Measure Inpt VTE Proph given/why not?: Enoxaparin (Lovenox)SQ
[2016-09-24] MEDS ORDERED: RMR15 PO (13:49)
[2016-09-24] MEDS ORDERED: ASPEC81 PO (13:49)
[2016-09-24] MEDS ORDERED: OXYC15TA49 PO (13:49)
[2016-09-24] MEDS ORDERED: ATV/1 PO (13:49)
[2016-09-24] MEDS ORDERED: ZOLP10TA PO (13:49)
[2016-09-24] MEDS ORDERED: EFFSR75 PO (13:49)
--- NOTE | 2016-09-24 13:53 | Discharge Summary ---
Discharge Summary Date of Service Sep 24, 2016. Discharge Summary Admission Date: Sep 20, 2016 at 08:57 Discharge Date: Sep 24, 2016 Discharge Disposition: Home Principal Diagnosis: SVT, Urinary Retention, Chronic Pain Syndrome Procedures: CXR: 1. No abnormal soft tissue density in the region of the superior vena cava. 2. Minimal left basilar atelectasis. CT ABD: 1. No acute process within the abdomen or pelvis. 2. No hydronephrosis. Mild enlargement of the prostate. Oliver balloon within the bladder which is collapsed. 3. Fatty liver. Consultations: Cardiology, Urology, Psychiatry Pending Studies/Follow-Up: Follow up with (PCP) on 09/25/16 at 10:40 AM Follow up with your Psychiatrist in 2-3 weeks as advised Follow up with Urology as needed if your symptoms reoccur Follow up with your music orchestrator per recommendations from your PCP Seek immediate medical attention if your symptoms reoccur or worsen Medication Reconciliation New Medications: Aspirin (Aspirin EC Low Dose) 81 Mg Ectab 81 MG PO QAM for 30 Days, #30 Mirtazapine (Mirtazapine) 15 Mg Tab 30 MG PO HS for 30 Days, #30 TAB Venlafaxine Hcl (Effexor Extended Rel) 75 Mg Capcr 75 MG PO QAM for 30 Days, #30 Changed Medications: Lorazepam (Ativan) 1 Mg Tab 1 MG PO TID for 1 Day, #3 TAB (Changed from: DAILY) Oxycodone Hcl (Roxicodone) 15 Mg Tab 15 MG PO TID PRN for Pain for 1 Day, #3 TAB (Changed from: DAILY) Zolpidem Tartrate (Ambien) 10 Mg Tab 5 MG PO HS for 1 Day, TAB (Changed from: 10 MG) Continued Medications: Cholecalciferol (Vitamin D3) 5,000 Unit Tab 5000 UNITS PO DAILY Digestive Enzymes (Papaya Enzyme) 1 Tab Tab 8 TABS PO TIDM Diltiazem Hcl Extended Release (Diltiazem Hcl Er) 120 Mg Cap 1 CAP PO DAILY Diphenhydramine Hcl (Benadryl) 25 Mg Cap 50 MG PO DIRECTED, CAP Docusate Sodium (Docusate Sodium) 100 Mg Cap 100 MG PO TID Fentanyl (Fentanyl) 100 Mcg Tdsy 1 PATCH TD 48 HRS TOTAL 150 MCG/CHANGE, EVERY 48 HOURS. Fentanyl (Fentanyl) 50 Mcg Tdsy 50 MCG TD Q48HR TOTAL 150 MCG/CHANGE, EVERY 48 HOURS. Ibuprofen Tab (Motrin) 400 Mg Tab 400 MG PO DIRECTED PRN for Pain, TAB Levothyroxine Sodium (Levothyroxine Sodium) 25 Mcg Tab 25 MCG PO DAILY for 90 Days, #90 TAB 3 Refills Magnesium Hydroxide (Milk Of Magnesia) 30 Ml Susp 2 TBS PO DAILY, ML Polyethylene Glycol 3350 (Miralax) 1 Pow Pow 17 GM PO DAILY PRN for Constipation, #527 GM Potassium Chloride (Klor-Con M20) 20 Meq Tabcr 20 MEQ PO DAILY Discontinued Medications: Methadone Hcl (Dolophine) 10 Mg Tab 10 MG PO Q8 PRN for Pain, TAB Admission Information HPI (per Admitting provider): Patient is a 66 yr male with PMH of SVT, Hypertension, DM II diet controlled, BPH, Insomnia, Syringomyelia, Anxiety disorder, ANDRIA on CPAP who presents for evaluation of possible drug overdose. Patient is a poor historian. He reports he has chronic neck and lower back pain since many years and he was on Fentanyl , oxycodone currently and also was on Methadone previously which was discontinued. Reports having trouble with pain control yesterday and so took 60mg of his methadone (was from 2013) along with Ibuprofen (400mg)and Benadryl ( 50mg). He felt lightheaded and checked his BP which was 90/70 and so called EMS. He was found to be in SVT and was given Adenosine 6 mg IV and Zofran 4 mg IV. Currently patient is in sinus. He reports he did not take his morning medications. He also reports he has chronic urinary retention issues and was previously evaluated by Urology and has trouble urinating since yesterday. He also reports having abdominal pain predominantly in umbilical and suprapubic region and states it is intermittent and has been going on since about an year. Reports associated chronic constipation and intermittent nausea and vomiting since last 3 months. Denies any history of chest pain, SOB, fever, chills, diarrhea, hematuria, blood in stools, cough, palpitations. He had expel 800 cc' s of urine with strain after inserting Oliver in ED. Physical Exam (per Admitting): General Appearance: WD/WN, no apparent distress Head: normocephalic, atraumatic Eyes: normal inspection, PERRL, EOMI ENT: normal ENT inspection, hearing grossly normal Neck: supple, trachea midline Respiratory/Chest: chest non-tender, lungs clear, normal breath sounds, no accessory muscle use Cardiovascular: regular rate, rhythm, no edema, no murmur, + tachycardia Abdomen/GI: normal bowel sounds, soft, + tenderness (Umbilical, Suprapubic, No guarding/rigidity ) Back: normal inspection Extremities/Musculoskelatal: normal inspection, no pedal edema Neurologic/Psych: beef splitter II-XII nml as tested, no motor/sensory deficits, alert , normal mood/affect, oriented x 3 Skin: normal color, warm/dry Hospital Course Anxiety/Major Depression Insomnia Medication abuse Denies suicidal thoughts Continue Ambien, Effexor, Remeron, Ativan per Psychiatry recommendations Appreciate Psychiatry Input Sleeping better with medication changes Discussed with today SVT: Patient has H/O SVT Received Adenosine by EMS Has T wave changes in inferior leads and ST changes in lateral leads Currently in Sinus Continue PO Cardizem, Aspirin EKG changes likely secondary to SVT cardiac enzymes: x3: negative ECHO: Normal as below Appreciate cardiology Input TSH:wnl May need ablation eventually if recurrent Currently in Sinus Urinary Retention: Resolved Presents with abdominal pain/pressure sensation, intermittent nausea, vomiting, chronic constipation CT abd: Mild BPH DC Oliver today Appreciate Urology Input h/o Multiple STDs in the past, PRP: negative Had voiding trial today Chronic Pain Syndrome H/O Syringomyelia Reports that he was evaluated previously and was told not a surgical candidate Overdosed On Methadone, Also took Ibuprofen and Benadryl Continue Fentanyl patch 150mg Q72H Appreciate Pain management Input On Oxycodone 15mg PRN Discussed with 's staff and confirmed his home medications on 09/22/16 DM II: Diet controlled continue ISS, accu checks HbA1C:6.5 HTN: controlled Continue Cardizem Monitor Hypothyroidism: TSH:wnl Continue levothyroxine ANDRIA: Continue CPAP qhs DVT Px: Lovenox SQ: patient refused COde Status: Full Code DISPOSITION: Monitor in Tele Follow up with (PCP) on 09/25/16 at 10:40AM Follow up with Urology as needed if your symptoms reoccur Follow up with your music orchestrator per recommendations from your PCP Seek immediate medical attention if your symptoms reoccur or worsen PROCEDURES: CT AND: 1. No acute process within the abdomen or pelvis. 2. No hydronephrosis. Mild enlargement of the prostate. Oliver balloon within the bladder which is collapsed. 3. Fatty liver. ECHO: * There is moderate concentric left ventricular hypertrophy. * Left ventricular systolic function is normal. * Grade I diastolic dysfunction, (abnormal relaxation pattern). Total time spent on discharge = 45 minutes This includes examination of the patient, discharge planning, medication reconciliation, and communication with other providers. Discharge Instructions Discharge Instructions Date of Service Sep 24, 2016. Admission Reason for Admission: Svt, Urinary Retention Discharge Discharge Diagnosis / Problem: SVT, Urinary Retention, Chronic Pain Syndrome Discharge Goals Goal(s): Decrease discomfort, Improve function Activity Recommendations Activity Limitations: resume your previous activity Exercise/Sports Limitations: as tolerated . Instructions / Follow-Up Instructions / Follow-Up Follow up with (PCP) on 09/25/16 at 10:40 AM Follow up with your Psychiatrist in 2-3 weeks as advised Follow up with Urology as needed if your symptoms reoccur Follow up with your music orchestrator per recommendations from your PCP Seek immediate medical attention if your symptoms reoccur or worsen Current Hospital Diet Patient's current hospital diet: Diabetes Type 2 Diet, AHA Diet (Heart Healthy) Discharge Diet Recommended Diet: AHA Diet (Heart Healthy), Diabetes Type 2 Diet Pending Studies Studies pending at discharge: no Laboratory Results Hemoglobin A1c Test 09/21/16 10:31 Range/Units Estimated Average Glucose 140 mg/dl Hemoglobin A1c 6.5 H 4.5-5.6 % Medical Emergencies . Who to Call and When: Medical Emergencies: If at any time you feel your situation is an emergency, please call 911 immediately. . Non-Emergent Contact Non-Emergency issues call your: Primary Care Provider, Dedicated Intermodal Truck Driver, Urologist Call Non-Emergent contact if: you have a fever, your pain is not controlled, your pain is worsening, your pain is unusual for you, you have any medication questions If your symptoms reoccur or worsen . . "Provider Documentation" section prepared by Daniel Gallego. . VTE Core Measure Inpt VTE Proph given/why not?: Enoxaparin (Lovenox)SQ
[2016-09-24] MEDS: FENTANYL PATCH REMOVE & WASTE SCH (14:21)
[2016-09-24] MEDS: FENTANYL 50 MCG/HR TDSY TD SCH (14:21)
--- NOTE | 2016-09-26 14:53 | Psychiatric Progress Notes ---
Psychiatric Progress Note Date of Service Sep 26, 2016. Notes Patient called my outpatient urgent call line and left a message that he needed pain meds and help getting into see Dr. Yadav in [place]. I spoke with Gloria Badillo from [facility] to relay these medical concerns. She called Dr. Mccall's office in [place] and confirmed that he had an appt today at 3 PM. I phoned the patient back to be sure he was aware. He said the appt was at 3: 20 and he was not seeing the doctor, but the office staff. He wants to be able to transfer his pain management to Dr. Yadav, but has previously been told that they would not do so, and he wanted help to make that happen. He said that he planned to keep his appt with Dr. Mccall this afternoon, and then wanted to talk about medical marijauna. I encouraged him to call Dr. Yadav's office to discuss his request to transfer care, with them. Patient was not happy that I could not have a lengthy discussion of his problems. He did say that the Remeron we ordered for sleep has been helpful.
== END 2016-09-24 14:53 | disposition home or self-care (01) | DRG 92 ==
LOC: EDBD 05:45 → C.EDB 05:46 → C.2T 08:57 → ENRESERV 09:36
PROVIDERS: ADMIT Internal Medicine; ATTEND Internal Medicine
PROC: 0T9B70Z Drainage of Bladder with Drainage Device, Via Natural or Artificial Opening (ICD-10-PCS; principal; 2016-09-20)
DX: G89.4 Chronic pain syndrome (principal); F11.20 Opioid dependence, uncomplicated; G95.0 Syringomyelia and syringobulbia; I47.1 Supraventricular tachycardia; F33.1 Major depressive disorder, recurrent, moderate; T40.3X1A Poisoning by methadone, accidental (unintentional), initial encounter; T39.311A Poisoning by propionic acid derivatives, accidental (unintentional), initial encounter; T45.0X1A Poisoning by antiallergic and antiemetic drugs, accidental (unintentional), initial encounter; T40.2X5A Adverse effect of other opioids, initial encounter; M54.2 Cervicalgia; M54.5 Low back pain; R33.9 Retention of urine, unspecified; K59.09 Other constipation; I10 Essential (primary) hypertension; E11.9 Type 2 diabetes mellitus without complications; E03.9 Hypothyroidism, unspecified; I25.10 Atherosclerotic heart disease of native coronary artery without angina pectoris; N40.1 Benign prostatic hyperplasia with lower urinary tract symptoms; G47.00 Insomnia, unspecified; F41.9 Anxiety disorder, unspecified; G47.33 Obstructive sleep apnea (adult) (pediatric); Z99.89 Dependence on other enabling machines and devices; Z87.891 Personal history of nicotine dependence; Z86.19 Personal history of other infectious and parasitic diseases; Z79.899 Other long term (current) drug therapy

== ENCOUNTER → 2016-10-17 | Outpatient (CLI) | payer OTHER, BC ==
[~2016-10-17] MED LIST changes: +ASPEC81 PO; +BND25 PO; -CHOL1TAB42 PO; +CHOL1TAB46 PO; +CLC100 PO; +DIGETAB13 PO; +DRGTP50 TD; +EFFSR75 PO; +IBUP-1449 PO; +LEVO25TA5 PO; +MCRK20 PO; -POTA10CA28 PO; +RMR15 PO
[2016-10-18 06:53] LABS: ESTIMATED AVERAGE GLUCOSE 143 mg/dl; HA1C FLAG Normal (Normal)
== END | disposition home or self-care (01) ==
LOC: C.LABBFT 17:36
PROVIDERS: ATTEND Physician Assistant
DX: E11.9 Type 2 diabetes mellitus without complications (principal)

== ENCOUNTER → 2017-02-27 | Outpatient (CLI) | payer OTHER, BC ==
[~2017-02-27] MED LIST changes: -BND25 PO; +DIPH25CA5 PO; -OXYC15TA49 PO
[2017-02-27 12:25] LABS: BASO % 0.8 %; BASO ABS # 0.04 K/uL (0-0.2); COMPLETE YES; EOS % 5.3 %; HEMATOCRIT 41.8 % (42-52); IG% 1.4 %; LYMPH % 23.4 %; LYMPH ABS # 1.19 K/uL (1.2-3.4); MEAN CELL VOLUME 90.3 fL (80-100); MEAN CORPUSCULAR HEMOGLOBIN 31.5 pg (25-34); MEAN CORPUSCULAR HGB CONC 34.9 g/dl (32-36); MONO % 10.6 %; NEUT % 58.5 %; PLATELET COUNT 250 K/uL (130-400); RED BLOOD COUNT 4.63 M/uL (4.7-6.1); WHITE BLOOD COUNT 5.09 K/uL (4.8-10.8)
[2017-02-27 12:39] LABS: ALT/SGPT 24 U/L (12-78); AST/SGOT 13 U/L (15-37); BLOOD UREA NITROGEN 17 mg/dl (7-18); BUN/CREATININE RATIO 15.5 (10-20); CALCIUM 9.2 mg/dl (8.5-10.1); CARBON DIOXIDE 26 mmol/L (21-32); CHLORIDE 101 mmol/L (98-107); CREATININE 1.12 mg/dl (0.60-1.40); GLUCOSE 141 mg/dl (70-99); POTASSIUM 3.7 mmol/L (3.5-5.1); SODIUM 135 mmol/L (136-145)
[2017-02-27 12:50] LABS: ALB/GLOB RATIO 1.1 (0.9-2); ALKALINE PHOSPHATASE 65 U/L (45-117); CHOLESTEROL 191 mg/dl (0-200); CHOLESTEROL/HDL RATIO 4.2; ESTIMATED AVERAGE GLUCOSE 146 mg/dl; HA1C FLAG Normal (Normal); HDL CHOLESTEROL 46 mg/dl; LDL CHOLESTEROL CALCULATED 111 mg/dl; TRIGLYCERIDES 172 mg/dl (0-150); VERY LOW DENSITY LIPOPROT CALC 34 mg/dl
[2017-02-27 12:58] LABS: RATIO 23.4 mcg/mg (0-30.0)
--- NOTE | 2017-03-07 11:24 | CODING QUERY MEDICAL NECESSITY ---
SUPPORTING DIAGNOSIS NEEDED A supporting diagnosis is required for the test/procedure performed on this patient in order for us to be reimbursed by the patient's insurance. Please provide a supporting diagnosis for the following test/procedure listed below next to the test name along with your signature. *If there is no additional diagnosis for this patient that would support the following test/procedure please document that below next to the test/procedure. Test(s)/Procedure(s) that require a supporting diagnosis: * VITAMIN D, 25-HYDROXY DIAGNOSIS: Provider Signature: Date: Thank you Aniyah Schafer Contacts+ Information Management Once completed, please kindly fax back to [phone] For questions please call [phone]
== END | disposition home or self-care (01) ==
LOC: C.LABBFT 10:14
PROVIDERS: ATTEND Physician Assistant
DX: I10 Essential (primary) hypertension (principal); E11.9 Type 2 diabetes mellitus without complications; R53.1 Weakness; E55.9 Vitamin D deficiency, unspecified

== ENCOUNTER → 2017-09-20 | Outpatient (CLI) | payer OTHER, BC ==
[~2017-09-20] MED LIST changes: -ASPEC81 PO; -ATV/1 PO; +ATV/1 SL; +CRAN1CAP24 PO; -DIPH25CA5 PO; -DRGTP100 TD; -DRGTP50 TD; -EFFSR75 PO; -IBUP-1449 PO; +INSU1.2I SQ; +META1TAB22 PO; -RMR15 PO; +SUMA50TA15 PO
== END | disposition home or self-care (01) ==
LOC: C.LAB 17:18
PROVIDERS: ATTEND Internal Medicine
DX: G89.29 Other chronic pain (principal)

== ENCOUNTER → 2017-10-08 | Outpatient (CLI) | payer OTHER, BC ==
[2017-10-08 17:27] LABS: BASO % 0.8 %; BASO ABS # 0.04 K/uL (0-0.2); EOS % 6.3 %; EOS ABS # 0.33 K/uL (0-0.5); HEMATOCRIT 48.9 % (42-52); HEMOGLOBIN 15.4 g/dL (14.0-18.0); IG# 0.02 K/uL (0.00-0.02); LYMPH % 29.3 %; LYMPH ABS # 1.53 K/uL (1.2-3.4); MEAN CELL VOLUME 91.4 fL (80-100); MEAN CORPUSCULAR HEMOGLOBIN 28.8 pg (25-34); MEAN CORPUSCULAR HGB CONC 31.5 g/dl (32-36); MEAN PLATELET VOLUME 9.4 fL (7.4-10.4); MONO % 11.3 %; MONO ABS # 0.59 K/uL (0.11-0.59); NEUT % 51.9 %; NEUT ABS # 2.71 K/uL (1.4-6.5); PLATELET COUNT 235 K/uL (130-400); RED CELL DISTRIBUTION WIDTH CV 13.5 % (11.5-14.5); RED CELL DISTRIBUTION WIDTH SD 44.9 fL (36.4-46.3); WHITE BLOOD COUNT 5.22 K/uL (4.8-10.8)
[2017-10-08 17:57] LABS: ALBUMIN 3.7 gm/dl (3.4-5.0); ALKALINE PHOSPHATASE 67 U/L (45-117); ALT/SGPT 26 U/L (12-78); AST/SGOT 12 U/L (15-37); BLOOD UREA NITROGEN 26 mg/dl (7-18); CALCIUM 8.2 mg/dl (8.5-10.1); CARBON DIOXIDE 24 mmol/L (21-32); CREATININE 1.21 mg/dl (0.60-1.40); GLUCOSE 90 mg/dl (70-99); POTASSIUM 3.9 mmol/L (3.5-5.1); SODIUM 137 mmol/L (136-145); TOTAL PROTEIN 6.9 gm/dl (6.4-8.2)
[2017-10-09 06:41] LABS: HEMOGLOBIN A1C 6.6 % (4.5-5.6)
== END | disposition home or self-care (01) ==
LOC: C.LABBFT 15:33
PROVIDERS: ATTEND Physician Assistant
DX: I10 Essential (primary) hypertension (principal); E11.9 Type 2 diabetes mellitus without complications; E83.42 Hypomagnesemia; E29.0 Testicular hyperfunction; E03.9 Hypothyroidism, unspecified; E06.3 Autoimmune thyroiditis; E23.0 Hypopituitarism; E78.5 Hyperlipidemia, unspecified; E66.3 Overweight

== ENCOUNTER 2018-08-13 15:42 | Inpatient (IN) ==
--- OUTSIDE RECORDS SUMMARY | 2018-08-13 15:46 | External Medical Summary | Continuity of Care Document ---
:1950 Author Name Reymundo Whitmore, Provider Address Unavailable Unavailable , Care Team Providers Name Role Phone Vicenta ALLAN M.D., Terrence Brambila Unavailable [email or web address] Prem Aviles M.D. Unavailable [email or web address] Jerry BEARD Unavailable [email or web address] Kavin DIAZ Unavailable Unavailable Unavailable Unavailable Unavailable Problems Benign prostatic hypertrophy with urinary obstruction (600.0 1) (N40.1) Elevated prostate specific antigen (PSA) (790.93) (R97.20) Diabetes mellitus, type 2 (250.00) (E11.9) Pituitary hypogonadism (253.4) (E23.0) Coco's thyroiditis (245.2) (E06.3) Vitamin D deficiency (268.9) (E55.9) Sleep apnea (780.57) (G47.30) Overweight (278.02) (E66.3) Low back pain (724.2) (M54.5) Hypocalcemia (275.41) (E83.51) Lumbosacral radiculopathy at S1 (724.4) (M54.17) Cervical radiculopathy at C8 (723.4) (M54.12) Syringomyelia (336.0) (G95.0) Cervicalgia (723.1) (M54.2) Opioid dependence (304.00) (F11.20) Chronic pain (338.29) (G89.29) Supraventricular tachycardia by ECG (427.0) (I47.1) Dysesthesia (782.0) (R20.8) Loss of sensation (782.0) (R20.0) Peripheral neuropathy (356.9) (G62.9) Dyslipidemia (272.4) (E78.5) Hypertension (401.9) (I10) Hypothyroidism (244.9) (E03.9) Ingrown nail (703.0) (L60.0) Allergies and Adverse Reactions Cymbalta (Allergy) Lyrica CAPS (Allergy) Neurontin (Allergy) Reaction: Dizziness sulfa (Allergy) Medications Levothyroxine Sodium 25 MCG Oral Tablet; Take 1 tablet daily except for one day a week take 2 Myranda Aviles Start: 16-Jul-2015 Quantity: 30 Refills: 0 fentaNYL 50 MCG/HR Transdermal Patch 72 Hour Refills: 0 Remeron 15 MG Oral Tablet; TAKE 1 TABLET AT BEDTIME. Refills: 0 LORazepam 0.5 MG Oral Tablet; PLACE 1 TA BLET UNDER THE TONGUE AND ALLOW TO DISSOLVE 4 TIMES DAILY. Myranda Yadav III Start: 16-Jul-2015 Refills: 0 dilTIAZem HCl ER Coated Beads 120 MG Ora l Capsule Extended Release 24 Hour; TAKE ONE CAPSULE BY MOUTH ONE TIME DAILY Myranda Yadav III Start: 10-Nov-2015 Quantity: 90 Refills: 3 Docusate Sodium 100 MG Oral Tablet; TAKE 1 TABLET 3 times da sophy Start: 24-Oct-2016 Refills: 0 BD Pen Needle Divya U/F 32G X 4 MM; use once per day CHIRAG Gardiner Start: 20-May-2018 Quantity: 1 100 Unit Box Refills: 1 Papaya TABS; TAKE 6 TABLET Daily PRN Sta rt: 20-Nov-2016 Refills: 0 Accu-Chek Softclix Lancets; Test 3 times daily MALIKA Edwards Start: 23-Nov-2016 Quantity: 3 100 Unit Box Refills: 3 Metaxalone 800 MG Oral Tablet; take 1 tablet at bedtime as n eeded Start: 20-Sep-2017 Quantity: 30 Refills: 0 Toujeo SoloStar 300 UNIT/ML Subcutaneous Solution Pen-injector; INJECT 25 UNITS DAILY CHIRAG Edwards Start: 19-Dec-2016 Quantity: 1 3 x 1.5 ML Pen Refills: 11 Ambien 10 MG Oral Tablet; TAKE 1 TABLET AT BEDTIME NEEDED . Quantity: 30 Refills: 0 Vitamin D3 5000 UNIT Oral Tablet; Take 1 tablet daily Start: 16-Jul-2015 Refills: 0 Testosterone 20.25 MG/ACT (1.62%) Transd ermal Gel; APPLY ONE PUMP PRESS ONE TIME DAILY DIRECTED Myranda Aviles RickyPk Start: 27-Jun-2017 Quantity: 1 75 GM Pump Btl Refills: 0 Accu-Chek Roselyn Plus In Vitro Strip; TEST 3 TIMES LIZANDRO YCHIRAG Ojeda Start: 23-Nov-2016 Quantity: 3 100 Strip Box Refills: 3 MiraLax Oral Packet; USE DIRECTED. ONE PACKET DAILY Refills: 0 Klor-Con M20 20 MEQ Oral Tablet Extended Release; Take 1 tab let daily Refills: 0 Procedures Ultra TSH Date: 24-Jul-2018 Testosterone, Free/Total, Serum Date: 24-Jul-2018 History of Appendectomy Status: Complete d History of Hernia Repair Status: Complet ed Immunizations Influenza On: 03-Dec-2014 Prevnar 13 Intramuscular Suspension On: 03-Dec-2014 Family History Father Family history of cardiovascular disease (V17.49) (Z82.49) S tatus: Active Family history of lung cancer (V16.1) (Z80.1) Status: Active Mother Family history of lung cancer (V16.1) (Z80.1) Status: Active Social History - Smoking Status Never smoker Plan of Treatment Planned Encounters Appointment; Hussain Edwards PA-C Start: 10-Oct-2018 14:0 0 Request Planned Observations Planned Goals not documented Results No Known Results Results not documented Encounters Appointment; Hussain Edwards PA-C 11-Jun-2018 14:00 Encounter Diagnosis: Problem not documented Appointment; Nichole Herrera III, M.D. 07-Nov-2017 11:15 Encounter Diagnosis: Problem not documented Appointment; Hussain Edwards PA-C 02-Nov-2017 15:30 Encounter Diagnosis: Problem not documented Appointment; Nichole Herrera III, M.D. 17-Oct-2017 13:00 Encounter Diagnosis: Problem not documented Appointment; Terrence Yadav III, M.D. 20-Sep-2017 15:00 Encounter Diagnosis: Problem not documented Appointment; [place] [id number] 20-Sep-2017 14:45 Encounter Diagnosis: Problem not documented Appointment; Nichole Herrera III, M.D. 10-Aug-2017 9:00 Encounter Diagnosis: Problem not documented Appointment; Hussain Edwards PA-C 19-Jun-2017 14:00 Encounter Diagnosis: Problem not documented Appointment; Hussain Edwards PA-C 07-Mar-2017 13:30 Encounter Diagnosis: Problem not documented Appointment; Hussain Edwards PA-C 20-Nov-2016 18:00 Encounter Diagnosis: Problem not documented Appointment; Hussain Edwards PA-C 24-Oct-2016 10:30 Encounter Diagnosis: Problem not documented Appointment; Hussain Edwards PA-C 10-Oct-2018 14:00 Encounter Diagnosis: Problem not documented
[2018-08-13] MEDS ORDERED: ACETAMINOPHEN 1,000 MG/100 ML VIAL IV STA (16:12)
[2018-08-13] MEDS ORDERED: FAMOTIDINE 20MG IV PUSH 20 MG/5 ML SYR IV STA (16:14)
[2018-08-13] MEDS ORDERED: SODIUM CHLORIDE 0.9% 1000ML 1,000 ML IV SCH (16:15)
[2018-08-13] MEDS: DICYCLOMINE HCL 10 MG/ML 2 ML AMP/VIAL IM ONE ×2 (16:26→16:29)
--- NOTE | 2018-08-13 16:26 | Emergency Department Note ---
Entered by Dorothy Robles acting as a scribe for History of Present Illness General Chief complaint: Abdominal Pain Stated complaint: AB PAIN Time Seen by Provider: 08/13/18 15:49 Source: patient History of Present Illness Provider complaint: abdominal pain Onset (ago): day(s) (over the last several days) Location: abdomen Pain Consistency: + other (worsening) Quality: + other (pain) Associated symptoms: + other (arm and upper back pain, harder to urinate) The patient is a 68 year old male who presents to the Emergency Department with complaints of worsening abdominal pain over the last several days. Per , the patient was seen at the ED 2 days ago in [place] and also saw his PCP yesterday. His states that the patient is also having pain down his arms and his upper back. His states that the patient is also diabetic. The patient states that it has been harder to urinate over the last day and a half. He reports a history of a colon blockage and a Oliver catheter in 2016. The patient reports a history of syringomyelia and states that he gets intermittent back pain from this. Per , the patient has had night sweats for the last week. The patient states that his last bowel movement was this morning. Home Medications Home Medications Medication Instructions Recorded Confirmed Type diltiazem HCl 120 mg PO DAILY 03/18/18 08/13/18 History docusate sodium 100 mg PO BID 03/18/18 08/13/18 History fentanyl 50 mcg TOPICAL Q3D 03/18/18 08/13/18 History insulin glargine U-300 conc 25 unit SUBCUT QPM 03/18/18 08/13/18 History [Toujeo SoloStar U-300 Insulin] levothyroxine [Synthroid] 25 mcg PO DAILY 03/18/18 08/13/18 History potassium chloride 20 meq PO DAILY 03/18/18 08/13/18 History simethicone [Gas-X Extra Strength] 250 mg PO UD PRN 03/18/18 08/13/18 History zolpidem 10 mg PO HS 03/18/18 08/13/18 History Charcoal Caps 2 tabs PO .PRN 08/13/18 08/13/18 History Mylanta 10 - 20 ml PO UD PRN 08/13/18 08/13/18 History [place] Xl 300 mg PO TID 08/13/18 08/13/18 History Pepcin 10 mg PO .PRN 08/13/18 08/13/18 History carica papaya [Papaya Enzyme] 0 tab PO TIDM PRN 08/13/18 08/13/18 History cholecalciferol (vitamin D3) 5,000 unit PO DAILY PRN 08/13/18 08/13/18 History [Vitamin D3] dicyclomine 20 mg PO QID PRN 08/13/18 08/13/18 History lorazepam [Ativan] 1 mg PO BID 08/13/18 08/13/18 History mirtazapine [Remeron] 15 mg PO HS 08/13/18 08/13/18 History polyethylene glycol 3350 [Miralax] 17 g PO DAILY PRN 08/13/18 08/13/18 History Allergies Allergy/AdvReac Type Severity Reaction Status Date / Time amitriptyline Allergy Intermediate SHORTNESS Unverified 08/13/18 17:05 OF BREATH linaclotide Allergy Intermediate rash, Verified 08/13/18 17:05 severe diarrhea, swelling methadone Allergy Intermediate SHORTNESS Unverified 08/13/18 17:05 OF BREATH tetanus immune globulin Allergy Unknown SWELLING Verified 08/13/18 17:05 blue dye AdvReac Unknown UNKNOWN Unverified 08/13/18 17:05 duloxetine AdvReac Unknown UNKNOWN Unverified 08/13/18 17:05 Past Med/Surg History Medical History Syringomyelia (Chronic) Diabetes (Chronic) HTN (hypertension) (Chronic) Anxiety and depression (Chronic) BPH (benign prostatic hyperplasia) (Chronic) Chronic pain syndrome (Chronic) Hypothyroidism (Chronic) Insomnia (Chronic) Obstructive sleep apnea (Chronic) SVT (supraventricular tachycardia) (Chronic) Small bowel obstruction (Chronic) Surgical History H/O ventral hernia repair History of appendectomy Family History Other No significant family history Social History Preferred Language: Lithuanian Communication Ability: Effective Engagement Executive Required: No Beliefs That Will Affect Care: None Current Living Situation: Spouse Feels Safe at Home: Yes Safety Concerns: Feels Safe At This Time Smoking Status: Never smoker Hx Alcohol Use: No (quit in 2009) Hx Substance Use: No Review of Systems See HPI for pertinent positives & negatives. and A total of 10 systems reviewed and were otherwise negative Physical Exam Vital Signs Vital Signs - 24 hr 08/13/18 15:50 08/13/18 15:56 08/13/18 15:57 Temperature 36.8 C Temperature Source Oral Sepsis Recent Fever Within 48 Hours No Sepsis New/Unexplained Change in Mental Status No Sepsis Action Taken by Nursing No Action Required Pulse Rate 72 74 76 Pulse Rate [Right Finger] Respiratory Rate 20 18 18 Respiratory Effort / Characteristics Non-Labored Spontaneous Respiratory Depth Normal Blood Pressure 180/93 H Blood Pressure [Left Arm] Blood Pressure Mean 144 122 Blood Pressure Mean [Left Arm] Pulse Oximetry 98 Oxygen Delivery Method Room Air 08/13/18 15:59 08/13/18 16:00 08/13/18 16:01 Temperature Temperature Source Sepsis Recent Fever Within 48 Hours Sepsis New/Unexplained Change in Mental Status Sepsis Action Taken by Nursing Pulse Rate 76 75 74 Pulse Rate [Right Finger] Respiratory Rate 26 H 19 21 Respiratory Effort / Characteristics Respiratory Depth Blood Pressure 182/91 H Blood Pressure [Left Arm] Blood Pressure Mean 121 Blood Pressure Mean [Left Arm] Pulse Oximetry Oxygen Delivery Method 08/13/18 16:13 08/13/18 17:00 08/13/18 17:01 Temperature Temperature Source Sepsis Recent Fever Within 48 Hours Sepsis New/Unexplained Change in Mental Status Sepsis Action Taken by Nursing Pulse Rate 62 66 Pulse Rate [Right Finger] Respiratory Rate 14 16 Respiratory Effort / Characteristics Respiratory Depth Blood Pressure 165/80 H Blood Pressure [Left Arm] Blood Pressure Mean 108 Blood Pressure Mean [Left Arm] Pulse Oximetry 97 Oxygen Delivery Method Room Air 08/13/18 17:06 Temperature Temperature Source Sepsis Recent Fever Within 48 Hours Sepsis New/Unexplained Change in Mental Status Sepsis Action Taken by Nursing Pulse Rate 73 Pulse Rate [Right Finger] 71 Respiratory Rate 11 L Respiratory Effort / Characteristics Respiratory Depth Blood Pressure 137/84 Blood Pressure [Left Arm] 137/84 Blood Pressure Mean 101 Blood Pressure Mean [Left Arm] 101 Pulse Oximetry 97 Oxygen Delivery Method GENERAL: Awake, alert, well-appearing, in no distress HENT: Normocephalic, atraumatic. Oropharynx with dry mucous membranes and otherwise unremarkable. EYES: Normal conjunctiva. Sclera non-icteric. EOMI. No nystamgus. PEARRL. NECK: Supple. No nuchal rigidity. FROM. No JVD. RESPIRATORY: Clear to auscultation bilaterally. CARDIAC: Regular rate, normal rhythm. Extremities warm and well perfused. Pulses equal. ABDOMEN: Soft, non-distended. No tenderness to palpation. No rebound or guarding. No masses. RECTAL: Deferred. MUSCULOSKELETAL: Chest examination reveals no tenderness. The back is symm etrical on inspection without obvious abnormality. There is no CVA tenderness to palpation. No joint edema. LOWER EXTREMITIES: Calves are equal size bilaterally and non-tender. No edema. No discoloration. NEURO: Normal sensorium. No sensory or motor deficits noted. 5/5 strength and SILT x4 extremities. Steady gait. SKIN: No rash or jaundice noted. Course 1620: The patient was evaluated in room C11B. A history and physical were performed. 1749: I updated the patient who verbalized agreement and understanding of the treatment plan. 1754: I discussed the patient's case with Margoth Hartman, admitting to Dr. Gallego, who will evaluate the patient. Consultations Consultation #1: Margoth Hartman Time: 17:55 Administered Medications Docusate Sodium (Colace) 100 mg PO BID TOVA Stop: 09/12/18 20:59 Last Admin: 08/13/18 21:48 Dose: 100 mg Documented by: [id number] Potassium Chloride/Sodium Chloride (Normal Saline W/20 Meq Kcl) 20 meq in 1,000 mls @ 80 mls/hr IV .[id number] TOVA Stop: 09/12/18 20:56 Last Admin: 08/13/18 21:47 Dose: 80 mls/hr Documented by: [id number] Insulin Aspart (Novolog Flexpen) 0 units SC ACHS TOVA Stop: 09/12/18 20:59 Last Admin: 08/13/18 21:49 Dose: Not Given Documented by: [id number] Cosigned by: [id number] Ioversol (Optiray 320 100ml) 90 ml IV ONCE PRN PRN Reason: Interaction Checking Stop: 08/17/18 19:10 Last Admin: 08/13/18 19:11 Dose: 90 ml Documented by: [id number] Lorazepam (Ativan) 1 mg PO BID TOVA Stop: 09/12/18 20:59 Last Admin: 08/13/18 21:52 Dose: 1 mg Documented by: [id number] Mirtazapine (Remeron) 15 mg PO HS TOVA Stop: 09/12/18 20:59 Last Admin: 08/13/18 21:48 Dose: 15 mg Documented by: [id number] Miscellaneous (Fentanyl Patch Check Placement) 1 ea N/A QS TOVA Stop: 09/13/18 00:00 Last Admin: 08/13/18 22:57 Dose: 1 ea Documented by: [id number] Morphine Sulfate (Morphine Sulfate) 2 mg IV Q4H PRN PRN Reason: Pain Stop: 08/27/18 20:56 Last Admin: 08/13/18 21:52 Dose: 2 mg Documented by: [id number] Zolpidem Tartrate (Ambien) 10 mg PO [facility] Stop: 09/12/18 20:59 Last Admin: 08/13/18 21:52 Dose: 10 mg Documented by: [id number] Discontinued Medications Dicyclomine HCl (Bentyl) 20 mg IM NOW ONE Stop: 08/13/18 16:15 Last Admin: 08/13/18 16:29 Dose: Not Given Documented by: [id number] Acetaminophen (Ofirmev) 1,000 mg in 100 mls @ 400 mls/hr IV NOW STA Stop: 08/13/18 16:26 Last Infusion: 08/13/18 17:02 Dose: 0 mls/hr Documented by: [id number] Admin: 08/13/18 16:26 Dose: 400 mls/hr Documented by: [id number] Sodium Chloride (Nss 1000ml) 1,000 mls @ 999 mls/hr IV .Q1H1M TOVA Stop: 08/13/18 17:15 Last Infusion: 08/13/18 17:30 Dose: 0 mls/hr Documented by: [id number] Admin: 08/13/18 16:26 Dose: 999 mls/hr Documented by: [id number] Famotidine (Pepcid 20mg Iv Push) 20 mg in 5 mls @ 2.5 mls/min IV NOW STA Stop: 08/13/18 16:15 Last Admin: 08/13/18 16:26 Dose: 2.5 mls/min Documented by: [id number] Potassium Chloride ([place] / Wtr) 10 meq in 100 mls @ 100 mls/hr IV NOW STA Stop: 08/13/18 18:09 Last Infusion: 08/13/18 19:12 Dose: 0 mls/hr Documented by: [id number] Admin: 08/13/18 17:24 Dose: 100 mls/hr Documented by: [id number] Potassium Phosphate 9 mmol/ (Sodium Chloride) 253 mls @ 88 mls/hr IV ONE ONE Stop: 08/13/18 20:07 Last Infusion: 08/13/18 20:58 Dose: 0 mls/hr Documented by: [id number] Admin: 08/13/18 17:57 Dose: 88 mls/hr Documented by: [id number] Insulin Glargine (Lantus Solostar Pen) 20 units SC TODAY@2130 TOVA; Protocol Stop: 08/13/18 22:30 Last Admin: 08/13/18 21:49 Dose: 20 units Documented by: [id number] Cosigned by: [id number] Potassium Chloride (Klor-Con M10) 40 meq PO NOW STA Stop: 08/13/18 20:58 Last Admin: 08/13/18 21:48 Dose: 40 meq Documented by: [id number] Potassium Phosphate (Potassium Phosphate Replace) 9 mmol IV NOW STA Stop: 08/13/18 17:11 Last Admin: 08/13/18 18:00 Dose: Not Given Documented by: [id number] Medical Decision Making Differential Diagnosis Differential diagnosis: Etiologies such as biliary colic, cholecystitis, hepatitis, pancreatitis, cardiac disease, pancreatitis, gastritis, peptic ulcer disease, appendicitis, cystitis, diverticulitis, mesenteric ischemia, inflammatory bowel disease, ileus, bowel obstruction, testicular torsion, aortic pathology, shingles, as well as others were considered. . Medical Records Attestation: I reviewed the patient's medical records. Home Medications Current Medication List: was personally reviewed by me Laboratory Data Attestation: I reviewed the patient's lab results. Result diagrams: 08/13/18 16:22 08/13/18 16:22 Lab Results 08/13/18 08/13/18 08/13/18 Range/Units 16:17 16:22 16:22 WBC 5.49 (4.8-10.8) K/uL RBC 4.51 L (4.7-6.1) M/uL Hgb 14.6 (14.0-18.0) g/dL Hct 39.1 L (42-52) % MCV 86.7 (80-100) fL MCH 32.4 (25-34) pg MCHC 37.3 H (32-36) g/dL RDW Std Deviation 41.2 (36.4-46.3) fL RDW Coeff of Val 12.8 (11.5-14.5) % Plt Count 223 (130-400) K/uL MPV 9.0 (7.4-10.4) fL Immature Gran % (Auto) 0.5 % Neut % (Auto) 75.4 % Lymph % (Auto) 15.7 % [place] % (Auto) 7.8 % Eos % (Auto) 0.4 % Baso % (Auto) 0.2 % Immature Gran # (Auto) 0.03 H (0.00-0.02) K/uL Neut # (Auto) 4.14 (1.4-6.5) K/uL Lymph # (Auto) 0.86 L (1.2-3.4) K/uL [place] # (Auto) 0.43 (0.11-0.59) K/uL Eos # (Auto) 0.02 (0-0.5) K/uL Baso # (Auto) 0.01 (0-0.2) K/uL Sodium 133 L (136-145) mmol/L Potassium 3.0 L (3.5-5.1) mmol/L Chloride 98 (98-107) mmol/L Carbon Dioxide 27 (21-32) mmol/L Anion Gap 8.0 (3-11) BUN 11 (7-18) mg/dl Creatinine 0.92 (0.6-1.4) mg/dl Est Cr Clr Drug Dosing 70.9 ml/min Est GFR ( Amer) 97.3 Est GFR (Non-Af Amer) 84.0 BUN/Creatinine Ratio 11.7 (10-20) Glucose 132 H (70-99) mg/dl Calcium 9.5 (8.5-10.1) mg/dl Phosphorus 2.0 L (2.5-4.9) mg/dl Magnesium 2.5 H (1.8-2.4) mg/dl Total Bilirubin 0.6 (0.2-1) mg/dl Direct Bilirubin 0.2 (0-0.2) mg/dl AST 14 L (15-37) U/L ALT 17 (12-78) U/L Alkaline Phosphatase 64 (45-117) U/L Troponin I < 0.015 (0-0.045) ng/ml Total Protein 8.0 (6.4-8.2) gm/dl Albumin 4.6 (3.4-5.0) gm/dl Globulin 3.4 (2.5-4.0) gm/dl Albumin/Globulin Ratio 1.4 (0.9-2) Lipase 100 (73-393) U/L TSH 0.817 (0.300-4.500) uIu/ml Urine Color Yellow Urine Appearance Clear (Clear) Urine pH 8.5 H (4.5-7.5) Ur Specific [place] 1.010 (1.000-1.030) Urine Protein Negative (Negative) Urine Glucose (UA) Negative (Negative) Urine Ketones 1+ H (Negative) Urine Blood Negative (Negative) Urine Nitrite Negative (Negative) Urine Bilirubin Negative (Negative) Urine Urobilinogen Negative (Negative) Ur Leukocyte Esterase Negative (Negative) Imaging Data Radiologist's Impression: Radiology results as stated below per my review and the radiologist's interpretation: XR chest 1V portable HISTORY: Atypical Chest Pain COMPARISON: Chest 08/01/2017. FINDINGS: There are low lung volumes. A few bibasilar linear densities consistent with subsegmental atelectasis or scarring. This has improved in the interval. No new focal lung consolidations to suggest pneumonia. No evidence for pulmonary edema. The heart remains borderline enlarged. IMPRESSION: No acute process. Electronically signed by: Michael Bond M.D. 08/13/2018 4:29 PM ECG Data Attestation: I personally reviewed and interpreted this ECG as follows: Indication: abdominal pain Rate (beats per minute): 70 Rhythm: normal sinus Findings: + other (normal axis, nonspecific T-wave abnormalities) and + nonspe cific-ST abn Comparison ECG Date: from (08/01/17) Change: the following changes noted (T waves are more pronounced) Prescription Drug Monitoring [place] Drug Monitoring Program reviewed and findings noted below Prescription Drug Findings: There was an alert that the patient exceeds the opioid dosing threshold where he is receiving over 90 morphine mg equivalents per day. Blood Pressure Blood Pressure Findings: Elevated blood pressure Blood Pressure Disposition: elevated BP felt to be situational MDM Narrative The patient is a 68-year-old gentleman with a past medical history of chronic neck and back pain with a history of syringomyelia who presents emergency department with generalized abdominal pain which she believes may be related to his syrinx per hpi. Patient was seen at [facility] emergency department yesterday and had unremarkable work-up including a CT abdomen pelvis and was discharged with Bentyl. He reports his chronic neck and back pain have been not controlled for years ever since that "thing on TV" when referring to the opioid crisis. 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 The Patient reports to the emergency department today because " they did not do anything for me there". The patient is in no acute distress, afebrile stable vital signs. He appears clinically dry. He ambulates with a steady gait. He is neurologically intact including 5/5 strength and SILT x 4 extremities. EKG without overt acute ischemia. Chest x-ray negative for acute process. WBC, H/H, platelets wnl. Ch emistry without acidosis. Potassium 3.0 and phosphorus 2.0 with repletion provided. LFTs unremarkable. UA negative for infection however with 1+ ketones consistent with the patient's clinically dry appearance. Given the patient had a recent CT scan of his abdomen and pelvis at [facility] in the setting of reassuring work-up today no indication to repeat this today. However, reasonable to admit the patient for likely MRI to evaluate the patient's syrinx which certainly could cause his abdominal pain. However, the patient reports he requires sedation to undergo MRI related to PTSD from [place]. Otherwise, the patient does report feeling improved after IV fluids, APAP, Bentyl. Case was d iscussed with Devan Serrato PA-C, who will evaluate the patient for admission. Impression & Plan Hypokalemia, Hypophosphatemia, Abdominal pain, generalized, Chronic neck and back pain Discharge Plan Visit Data *Final* Discharge Date/Time: 08/13/18 20:11 Chief Complaint: Abdominal Pain Stated Complaint: AB PAIN ED Provider: Daron Cochran Discharge Problem: Hypokalemia, Hypophosphatemia, Abdominal pain, generalized, Chronic neck and back pain Patient Disposition: Admitted As Inpatient Discharge Instructions Interventions: ED Discharge Assessment Last Done: 08/13/18 20:11 The scribe's documentation has been prepared under my direction and personally reviewed by me in its entirety. I confirm that the note above accurately reflects all work, treatment, procedures, and medical decision making performed by me.
[2018-08-13 16:29] LABS: Appearance Urine Clear (Clear); Bilirubin Urine Negative (Negative); Blood Urine Negative (Negative); Color Urine Yellow; Glucose Urine UA Negative (Negative); Ketones Urine 1+ (Negative); Leukocyte Esterase Urine Negative (Negative); Nitrite Urine Negative (Negative); Protein Urine Negative (Negative); Urobilinogen Urine Negative (Negative); pH Urine 8.5 (4.5-7.5)
--- NOTE | 2018-08-13 16:30 | XRay Report ---
XR chest 1V portable HISTORY: Atypical Chest Pain COMPARISON: Chest 08/01/2017. FINDINGS: There are low lung volumes. A few bibasilar linear densities consistent with subsegmental a telectasis or scarring. This has improved in the interval. No new focal lung consolidations to sugges t pneumonia. No evidence for pulmonary edema. The heart remains borderline enlarged. IMPRESSION: No acute process. Electronically signed by: Michael Bond M.D. 08/13/2018 4:29 PM
[2018-08-13 16:33] LABS: Basophils # (auto) 0.01 K/uL (0-0.2); Basophils % (auto) 0.2 %; Eosinophils # (auto) 0.02 K/uL (0-0.5); Eosinophils % (auto) 0.4 %; Hematocrit (blood only) 39.1 % (42-52); Hemoglobin 14.6 g/dL (14.0-18.0); Immature Granulocytes # (auto) 0.03 K/uL (0.00-0.02); Immature Granulocytes % (auto) 0.5 %; Lymphocytes # (auto) 0.86 K/uL (1.2-3.4); Lymphocytes % (auto) 15.7 %; Mean Corpuscular Hgb Conc 37.3 g/dL (32-36); Mean Corpuscular Volume 86.7 fL (80-100); Monocytes # (auto) 0.43 K/uL (0.11-0.59); Monocytes % (auto) 7.8 %; Neutrophils # (auto) 4.14 K/uL (1.4-6.5); Neutrophils % (auto) 75.4 %; Platelet Count 223 K/uL (130-400); RDW Coefficient of Variation 12.8 % (11.5-14.5); RDW Standard Deviation 41.2 fL (36.4-46.3); Red Blood Count 4.51 M/uL (4.7-6.1); White Blood Count 5.49 K/uL (4.8-10.8)
[2018-08-13 16:54] LABS: Alanine Aminotransferase 17 U/L (12-78); Albumin Level 4.6 gm/dl (3.4-5.0); Aspartate Aminotransferase 14 U/L (15-37); BUN Creatinine Ratio 11.7 (10-20); Bilirubin Direct 0.2 mg/dl (0-0.2); Blood Urea Nitrogen 11 mg/dl (7-18); Calcium 9.5 mg/dl (8.5-10.1); Carbon Dioxide 27 mmol/L (21-32); Chloride 98 mmol/L (98-107); Creatinine Clr Calc Pharmacy 70.9 ml/min; Est GFR (African American) 97.3; Glucose 132 mg/dl (70-99); Magnesium 2.5 mg/dl (1.8-2.4); Sodium 133 mmol/L (136-145)
[2018-08-13 17:03] LABS: Albumin Globulin Ratio 1.4 (0.9-2); Alkaline Phosphatase 64 U/L (45-117); Bilirubin,Total 0.6 mg/dl (0.2-1); Globulin 3.4 gm/dl (2.5-4.0); Troponin I < 0.015 ng/ml (0-0.045)
[2018-08-13] MEDS ORDERED: POTASSIUM PHOS 3 MMOL/1 ML INFUSION IV STA (17:10)
[2018-08-13] MEDS ORDERED: POTASSIUM CHLORIDE / WTR 10 MEQ/100 ML PLCT IV STA (17:10)
[2018-08-13] MEDS ORDERED: POTASSIUM PHOSPHATE 9 MMOL in SODIUM CHLORIDE 0.9% 250 ML IV ONE (17:15)
--- NOTE | 2018-08-13 19:03 | History & Physical Report ---
Date of Service August 13, 2018 Assessment & Plan (1) Abdominal pain, generalized: Abd Pain: unclear etiology h/o chronic pain syndrome, small bowel obstruction Diarrhea: CT ABD: There are no acute infectious or inflammatory findings in the abdomen or pelvis. Mild to moderate diverticulosis of the left colon without CT evidence of acute diverticulitis. H/O recent Abx use Stool studies to R/O C.diff Normal lipase IV fluids Pain control Diet as tolerated Hypokalemia Hypophosphatemia Hyponatremia Likely due to diarrhea Replace electrolytes as needed Chronic outlet obstruction: Likely due to BPH Bladder wall thickening, trabeculation noted on CAT scan Bladder scan as needed anxiety/depression Insomnia No acute issues Continue home medications DM II: Last A1C: 6.3 on 06/11/18 Continue ISS, basal Insulin H/O SVT Hypertension Continue diltiazem Hypothyroidism Continue levothyroxine Obstructive sleep apnea CPAP QHS H/O Syringomyelia Chronic pain syndrome Presents with worsening generalized pain, burning sensation, numbness and tingling Neurology consulted Pain management DVT Px: Lovenox SQ Code Status: Full Code Disposition: Expected discharge home in stable History of Present Illness Chief Complaint: Abdominal pain, Diarrhea Primary Care Provider: Rio Mccall M.D. Patient is a 68-year-old man with history of anxiety depression, insomnia, SVT, BPH, diabetes, hypertension, hypothyroidism, obstructive sleep apnea, syringomyelia, history of recurrent small bowel obstruction, and chronic pain syndrome and other problems presents with history of worsening generalized pain and and abdominal pain since last few days. He describes the abdominal pain like a bandlike,8/10, nonradiating, sharp to dull, decreases with pain medication, associated with diarrhea since 1 week duration. He admits to using Z-Jignesh last month for URI. Denies any blood in the stool. Also states having generalized pain, especially upper back, associated with burning sensation, tingling and numbness in the arms and feet which he believes is secondary to syringomyelia. He follows with Dr. Herrera as outpatient. States his appetite is poor secondary to pain, denies any nausea vomiting, fever chills, chest pain, shortness of breath, dizziness. 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 He was seen 2 days ago and [facility] with similar symptoms and was told that his CAT scan of the abdomen was normal and was discharged on Bentyl which he states does not help. He also states that he had difficulty urinating since last 1 to 2 days, was able to urinate while in ED today. Allergies Allergy/AdvReac Type Severity Reaction Status Date / Time amitriptyline Allergy Intermediate SHORTNESS Unverified 08/13/18 17:05 OF BREATH linaclotide Allergy Intermediate rash, Verified 08/13/18 17:05 severe diarrhea, swelling methadone Allergy Intermediate SHORTNESS Unverified 08/13/18 17:05 OF BREATH tetanus immune globulin Allergy Unknown SWELLING Verified 08/13/18 17:05 blue dye AdvReac Unknown UNKNOWN Unverified 08/13/18 17:05 duloxetine AdvReac Unknown UNKNOWN Unverified 08/13/18 17:05 Home Medications Home Medications Medication Instructions Recorded Confirmed Type diltiazem HCl 120 mg PO DAILY 03/18/18 08/13/18 History docusate sodium 100 mg PO BID 03/18/18 08/13/18 History fentanyl 50 mcg TOPICAL Q3D 03/18/18 08/13/18 History insulin glargine U-300 conc 25 unit SUBCUT QPM 03/18/18 08/13/18 History [Toujeo SoloStar U-300 Insulin] levothyroxine [Synthroid] 25 mcg PO DAILY 03/18/18 08/13/18 History potassium chloride 20 meq PO DAILY 03/18/18 08/13/18 History simethicone [Gas-X Extra Strength] 250 mg PO UD PRN 03/18/18 08/13/18 History zolpidem 10 mg PO HS 03/18/18 08/13/18 History Charcoal Caps 2 tabs PO .PRN 08/13/18 08/13/18 History Mylanta 10 - 20 ml PO UD PRN 08/13/18 08/13/18 History [place] Xl 300 mg PO TID 08/13/18 08/13/18 History Pepcin 10 mg PO .PRN 08/13/18 08/13/18 History carica papaya [Papaya Enzyme] 0 tab PO TIDM PRN 08/13/18 08/13/18 History cholecalciferol (vitamin D3) 5,000 unit PO DAILY PRN 08/13/18 08/13/18 History [Vitamin D3] dicyclomine 20 mg PO QID PRN 08/13/18 08/13/18 History lorazepam [Ativan] 1 mg PO BID 08/13/18 08/13/18 History mirtazapine [Remeron] 15 mg PO HS 08/13/18 08/13/18 History polyethylene glycol 3350 [Miralax] 17 g PO DAILY PRN 08/13/18 08/13/18 History Past Med/Surg History Medical History Syringomyelia (Chronic) Diabetes (Chronic) HTN (hypertension) (Chronic) Anxiety and depression (Chronic) BPH (benign prostatic hyperplasia) (Chronic) Chronic pain syndrome (Chronic) Hypothyroidism (Chronic) Insomnia (Chronic) Obstructive sleep apnea (Chronic) SVT (supraventricular tachycardia) (Chronic) Small bowel obstruction (Chronic) Surgical History H/O ventral hernia repair History of appendectomy Family History Other No significant family history Social History Preferred Language: Welsh Communication Ability: Effective 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 Beliefs That Will Affect Care: None Current Living Situation: Spouse Feels Safe at Home: Yes Safety Concerns: Feels Safe At This Time Smoking Status: Never smoker Hx Alcohol Use: No (quit in 2009) Hx Substance Use: No Review of Systems Review of Systems: All systems reviewed & are unremarkable except as noted in HPI & below Physical Exam Physical Exam: Physical Exam: Vitals signs as noted above General Appearance:Moderately built and nourished, no apparent distress Head: normocephalic, Atraumatic Eyes: normal inspection, EOMI Neck: supple, Trachea midline Respiratory/Chest: Normal breath sounds, CTA Cardiovascular: S1, S2, No murmur Abdomen/GI:Soft, Non tender, Bowel sounds present Extremities/Musculoskelatal:normal inspection, no edema Neurologic/Psych:AAOX3, grossly no focal neurological deficits Skin: normal color, warm Results & Data Vital Signs (Past 12 Hours) Vital Signs Temp Pulse Pulse Resp BP BP Pulse Ox 08/13/18 17:06 73 71 11 L 137/84 137/84 97 08/13/18 17:01 66 16 165/80 H 08/13/18 17:00 62 14 08/13/18 16:13 97 08/13/18 16:01 74 21 182/91 H 08/13/18 16:00 75 19 08/13/18 15:59 76 26 H 08/13/18 15:57 76 18 180/93 H 08/13/18 15:56 74 18 08/13/18 15:50 36.8 C 72 20 98 Laboratory Results Short CBC 08/13/18 Range/Units 16:22 WBC 5.49 (4.8-10.8) K/uL Hgb 14.6 (14.0-18.0) g/dL Hct 39.1 L (42-52) % Plt Count 223 (130-400) K/uL BMP 08/13/18 16:22 Sodium 133 L Potassium 3.0 L Chloride 98 Carbon Dioxide 27 BUN 11 Creatinine 0.92 Glucose 132 H Calcium 9.5 Cardiac Enzymes 08/13/18 Range/Units 16:22 Troponin I < 0.015 (0-0.045) ng/ml Liver Function 08/13/18 Range/Units 16:22 Total Bilirubin 0.6 (0.2-1) mg/dl Direct Bilirubin 0.2 (0-0.2) mg/dl AST 14 L (15-37) U/L ALT 17 (12-78) U/L Alkaline Phosphatase 64 (45-117) U/L Albumin 4.6 (3.4-5.0) gm/dl Urine 08/13/18 Range/Units 16:17 Urine Color Yellow Urine Appearance Clear (Clear) Urine pH 8.5 H (4.5-7.5) Ur Specific [place] 1.010 (1.000-1.030) Urine Protein Negative (Negative) Urine Glucose (UA) Negative (Negative) Diagnostic Findings CT ABD: 1. There are no acute infectious or inflammatory findings in the abdomen or pelvis. 2. Mild to moderate diverticulosis of the left colon without CT evidence of acute diverticulitis. 3. Additional findings as above. CXR: No acute process.
[2018-08-13] MEDS ORDERED: IOVERSOL 100ml IV PRN (19:11)
--- NOTE | 2018-08-13 19:27 | CT Scan Report ---
CT SCAN OF THE ABDOMEN AND PELVIS WITH IV CONTRAST CLINICAL HISTORY: Generalized abdominal pain. COMPARISON STUDY: Abdominal CT dated 08/01/2017. TECHNIQUE: Following the IV administration of 90 cc of Optiray 320, CT scan of the abdomen and pelvi s is performed from the lung bases to the proximal femora. Images are reviewed in the axial, sagittal , and coronal planes. IV contrast was administered without complication. Oral contrast was utilized. A dose lowering technique was utilized adhering to the principles of ALARA. CT DOSE: 370.84 mGy.cm FINDINGS: Lung bases: The heart is normal in size and without pericardial effusion. There are coronary artery c alcifications. A fat-containing Bochdalek hernia is noted on the right. The lung bases are clear noti ng bibasilar scarring/atelectasis. A punctate calcified granuloma is seen at the left lung base. Ther e is a small hiatal hernia. Liver: The contrast-enhanced liver is normal in size, contour, and attenuation. There is no intrahepa tic biliary ductal dilatation. The hepatic veins and portal veins are patent. A 9 mm cyst is noted in the left lobe. Gallbladder: Unremarkable. Spleen: Normal in size and attenuation. Pancreas: Unremarkable. Adrenal glands: Unremarkable. Kidneys: The contrast enhanced kidneys demonstrate cortical atrophy and are without hydronephrosis. T he kidneys enhance symmetrically. 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 Additional subcentimeter cortical hypodensities likely represent cysts but are too small for definiti ve characterization. Abdominal vasculature: The abdominal aorta is normal in course and caliber noting moderate atheroscle rotic calcification. Bowel: There is no bowel obstruction. There is mild to moderate diverticulosis of the left colon with out CT evidence of acute diverticulitis. Enteric contrast reaches the colon. The appendix is not benson ntified and reported surgically absent. Small bowel loops are matted along the ventral abdominal wall , likely related to adhesions. Peritoneum: There is no intraperitoneal free air or abdominal ascites. There is a fat-containing umbi lical hernia. There is evidence of previous ventral hernia repair. Lymphadenopathy: None. Pelvic viscera: The prostate gland is enlarged and heterogeneous, measuring 5.5 cm in transverse diam eter. There is median lobe hypertrophy. The bladder wall is thickened and trabeculated indicating chr onic outlet obstruction. Skeletal structures: The skeletal structures are osteopenic. There is mild lumbosacral spondylosis. N o lytic or blastic lesions are seen. IMPRESSION: 1. There are no acute infectious or inflammatory findings in the abdomen or pelvis. 2. Mild to moderate diverticulosis of the left colon without CT evidence of acute diverticulitis. 3. Additional findings as above. Electronically signed by: Carlos Eduardo Garcia M.D. 08/13/2018 7:26 PM
[2018-08-13] MEDS ORDERED: POTASSIUM CHLORIDE 10 MEQ TABCR PO STA (20:57)
[2018-08-13] MEDS ORDERED: GLUCOSE 40% GEL 15 GM TUBE PO PRN (20:57)
[2018-08-13] MEDS ORDERED: POLYETHYLENE (MIRALAX) 17 GM PACK PO PRN ×2 (20:57)
[2018-08-13] MEDS ORDERED: GLUCAGON FOR INJ 1 MG VIAL SQ PRN (20:57)
[2018-08-13] MEDS ORDERED: GLUCOSE 10 TABS/TUBE PO PRN (20:57)
[2018-08-13] MEDS ORDERED: ALUMINUM/MAGNESIUM SUSP 30 ML UDC PO PRN (20:57)
[2018-08-13] MEDS ORDERED: ONDANSETRON INJ 2 MG/ML 2 ML VIAL IV PRN (20:57)
[2018-08-13] MEDS ORDERED: DICYCLOMINE HCL 20 MG TAB PO PRN (20:57)
[2018-08-13] MEDS ORDERED: CARBOHYDRATES FOR HYPOGLYCEMIA PO PRN (20:57)
[2018-08-13] MEDS ORDERED: SIMETHICONE 80 MG CHEW PO PRN (20:57)
[2018-08-13] MEDS ORDERED: DEXTROSE 50% 50 ML SYRINGE IV PRN (20:57)
[2018-08-13] MEDS ORDERED: ACETAMINOPHEN 1,000 MG/100 ML VIAL IV PRN (20:57)
[2018-08-13] MEDS ORDERED: fentaNYL 50 MCG/HR TDSY TD SCH (20:57)
[2018-08-13] MEDS ORDERED: FAMOTIDINE 20MG/5ML IV PUSH IV SCH (21:00)
[2018-08-13] MEDS ORDERED: INSULIN GLARGINE SOLOSTAR 100 UNITS/ML 3 ML PEN SC SCH (21:30)
[2018-08-13] MEDS: NSS + 20MEQ KCL 20 MEQ/1,000 ML BAG IV SCH (21:47)
[2018-08-13] MEDS: DOCUSATE SODIUM 100 MG CAP PO SCH (21:48)
[2018-08-13] MEDS: MIRTAZAPINE TAB 15 MG TAB PO SCH (21:48)
[2018-08-13] MEDS: INSULIN ASPART 100 UNITS/ML 3 ML PEN SC SCH (21:49)
[2018-08-13] MEDS: LORazepam 1 MG TAB PO SCH (21:52)
[2018-08-13] MEDS: ZOLPIDEM TARTRATE 10 MG TAB PO SCH (21:52)
[2018-08-13] MEDS: MoRPHine SULFATE 2 MG/ML CARP IV PRN (21:52)
[2018-08-13] MEDS: CHECK FENTANYL PATCH PLACEMENT SCH (22:57)
[2018-08-14] MEDS ORDERED: CHECK FENTANYL PATCH PLACEMENT SCH
[2018-08-14] MEDS: MoRPHine SULFATE 2 MG/ML CARP IV PRN ×4 (02:06→22:28)
[2018-08-14] MEDS: LEVOTHYROXINE SODIUM 25 MCG TABLET PO SCH (06:36)
[2018-08-14 07:11] LABS: Hemoglobin 13.2 g/dL (14.0-18.0); Mean Corpuscular Hgb Conc 34.7 g/dL (32-36); Mean Corpuscular Volume 90.3 fL (80-100); Mean Platelet Volume 9.2 fL (7.4-10.4); Platelet Count 220 K/uL (130-400); RDW Coefficient of Variation 13.4 % (11.5-14.5); RDW Standard Deviation 44.2 fL (36.4-46.3); Red Blood Count 4.21 M/uL (4.7-6.1); White Blood Count 4.77 K/uL (4.8-10.8)
[2018-08-14 07:21] LABS: INR 1.1 (0.9-1.1); Prothrombin Time 11.3 Seconds (9.0-12.0)
[2018-08-14 07:50] LABS: BUN Creatinine Ratio 13.9 (10-20); Calcium 8.5 mg/dl (8.5-10.1); Creatinine Clr Calc Pharmacy 74.6 ml/min; Est GFR (African American) 101.3; Est GFR (Non-African American) 87.4; Magnesium 2.9 mg/dl (1.8-2.4); Phosphorus 3.8 mg/dl (2.5-4.9); Potassium 3.8 mmol/L (3.5-5.1)
[2018-08-14] MEDS: LORazepam 1 MG TAB PO SCH ×2 (08:50→20:28)
[2018-08-14] MEDS: CHECK FENTANYL PATCH PLACEMENT SCH ×2 (08:50→18:01)
[2018-08-14] MEDS: POTASSIUM CHLORIDE 20 MEQ TABCR PO SCH (08:51)
[2018-08-14] MEDS: dilTIAZem ER 120 MG CAPCR PO SCH (08:52)
[2018-08-14] MEDS: INSULIN ASPART 100 UNITS/ML 3 ML PEN SC SCH ×4 (08:52→20:37)
[2018-08-14] MEDS: DOCUSATE SODIUM 100 MG CAP PO SCH (08:52)
[2018-08-14] MEDS: ENOXAPARIN INJ 40 MG/0.4 ML SYR SQ SCH (08:55)
--- NOTE | 2018-08-14 08:59 | Pain Management Consultation ---
Date of Consultation August 14, 2018 Assessment & Plan (1) Benzodiazepine withdrawal: 1. Patient presenting with abdominal pain, generalized increased pain, increased levels of anxiety and diarrhea reportedly starting a few days prior to admission which appears to correlate with the patient "running out of lorazepam". His presentation appears most consistent with benzodiazepine withdrawal versus opioid withdrawal although patient had fentanyl patch in place upon admission. There was reportedly [address] with 1 date of 08/11 and the second 1 with a date of 08/13. Patient reported that he just forgot to take off his old patch although the placement of new patch was a day early. PDMP was reviewed which revealed prescriptions for fentanyl, hydrocodone 10/325 mg, lorazepam and zolpidem. The patient initially did not admit to use of hydrocodone but when repeatedly question he eventually reported a prescription for hydrocodone was provided. He was unable to report the use of this medication regarding frequency and when he "ran out". There is clearly concern about his use of opiates and benzodiazepines concomitantly. The patient will need to further discuss this with his prescribing physician upon discharge. Would also recommend the patient have Narcan available upon discharge due to his current level of opiate utilization. The patient reported improved sleep and pain control over the past 12 hours likely as a byproduct of resuming his benzodiazepines. Urine drug screening would likely provide little utility at this time other than attempting to identify a non-prescribed medication. 2. Would recommend consideration of behavioral health involvement. 3. Patient is not a candidate for interventional treatment and there is no consideration for spinal cord stimulation or intrathecal opiate therapy in this patient. 4. Will defer any further treatment recommendations to neurology. Will sign off on patient at this time. Thank you for allowing us to participate in the care of Mr. Mace. Present on Admission?: Yes (2) Anxiety and depression: Present on Admission?: Yes (3) Chronic pain syndrome: Present on Admission?: Yes (4) Syringomyelia: Present on Admission?: Yes (5) Opioid dependence: Present on Admission?: Yes History of Present Illness Reason for Consultation: Generalized abdominal pain Attending Physician: Larissa Aguilar MD History of Present Illness Mr. Mace is a 68-year-old white male who was admitted with abdominal pain and generalized pain complaints. 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 Patient reported a few days prior to admission he developed increased overall pain complaints as well as some generalized abdominal pain. He reports chronic use of fentanyl currently at 50 mcg patch every 72 hours and chronic lorazepam 1 mg typically twice daily. The patient reportedly ran out of his lorazepam a few days prior to admission around the time of onset of his current symptoms. He also had 2 fentanyl patches on at the time of his emergency department evaluation with one dated 08/11 and the other one dated 08/13. Urine drug screening was not completed at the time of admission. Patient reports that he has been in generally struggling with pain control with frequent adjustments to his opiate and benzodiazepine therapies by his prescribing physician. He has been involved in multiple pain clinics settings in the past most recently at [facility] in [facility] approximately 1 year ago. He reported 3 visits to the clinic and then did not return due to excessive paperwork and frequent urine screenings per the patients report. He has been evaluated by neurology locally with Dr. Herrera in the past who has been consulted at this time. Patient reports that his pain is minimal at this time. He reports his pain is much improved over the past 12 hours. He has minimal abdominal discomfort. He denies numbness and tingling affecting the feet bilaterally which is chronic in duration. He reportedly slept for 3-4 hours last evening which was the best sleep he has had and a few months. Patient is rating his current pain at a 3- 4/10 at its best a 7-8/10 at its worst. He frequently reports a sensation where as he feels he has been "smacked with a board" across the shoulder region. He is not experiencing the sensation at this time. He has no true radicular pattern to pain in the upper or lower extremities. He denies any bowel or bladder incontinence. He is not followed by behavioral health. The patient reports that he did experience some loose stools 3-4 days prior to his admission as well but denied blood in the stools. There does appear to be a correlation with him running out of his lorazepam. Patient has reported prior trials of anticonvulsant therapies without benefit. Patient has no further constitutional complaints at this time. Plan of care discussed with Dr. Stacy. Pain Assessment Full Body Front + Back: 1. Generalized thoracic back pain 2. Generalized abdominal pain 3. Dysesthesias and paresthesias affecting the feet bilaterally and nondermatomal patterns Pain scale - at its best (0-10): 3 Pain scale - at its worst (0-10): 8 Allergies Allergy/AdvReac Type Severity Reaction Status Date / Time amitriptyline Allergy Intermediate SHORTNESS Unverified 08/13/18 17:05 OF BREATH linaclotide Allergy Intermediate rash, Verified 08/13/18 17:05 severe diarrhea, swelling methadone Allergy Intermediate SHORTNESS Unverified 08/13/18 17:05 OF BREATH tetanus immune globulin Allergy Unknown SWELLING Verified 08/13/18 17:05 blue dye AdvReac Unknown UNKNOWN Unverified 08/13/18 17:05 duloxetine AdvReac Unknown UNKNOWN Unverified 08/13/18 17:05 Home Medications Home Medications Medication Instructions Recorded Confirmed Type diltiazem HCl 120 mg PO DAILY 03/18/18 08/13/18 History docusate sodium 100 mg PO BID 03/18/18 08/13/18 History fentanyl 50 mcg TOPICAL Q3D 03/18/18 08/13/18 History insulin glargine U-300 conc 25 unit SUBCUT QPM 03/18/18 08/13/18 History [Toujeo SoloStar U-300 Insulin] levothyroxine [Synthroid] 25 mcg PO DAILY 03/18/18 08/13/18 History potassium chloride 20 meq PO DAILY 03/18/18 08/13/18 History simethicone [Gas-X Extra Strength] 250 mg PO UD PRN 03/18/18 08/13/18 History zolpidem 10 mg PO HS 03/18/18 08/13/18 History Charcoal Caps 2 tabs PO .PRN 08/13/18 08/13/18 History Mylanta 10 - 20 ml PO UD PRN 08/13/18 08/13/18 History Midpines Xl 300 mg PO TID 08/13/18 08/13/18 History Pepcin 10 mg PO .PRN 08/13/18 08/13/18 History carica papaya [Papaya Enzyme] 0 tab PO TIDM PRN 08/13/18 08/13/18 History cholecalciferol (vitamin D3) 5,000 unit PO DAILY PRN 08/13/18 08/13/18 History [Vitamin D3] dicyclomine 20 mg PO QID PRN 08/13/18 08/13/18 History lorazepam [Ativan] 1 mg PO BID 08/13/18 08/13/18 History mirtazapine [Remeron] 15 mg PO HS 08/13/18 08/13/18 History polyethylene glycol 3350 [Miralax] 17 g PO DAILY PRN 08/13/18 08/13/18 History Pain History Pain Intensity Pain scale - at its best (0-10): 3 Pain scale - at its worst (0-10): 8 Patient History Medical History BPH (benign prostatic hyperplasia) (Chronic) Anxiety and depression (Chronic) SVT (supraventricular tachycardia) (Chronic) Hypothyroidism (Chronic) Obstructive sleep apnea (Chronic) Small bowel obstruction (Chronic) Chronic pain syndrome (Chronic) Insomnia (Chronic) Syringomyelia (Chronic) Diabetes (Chronic) HTN (hypertension) (Chronic) Surgical History H/O ventral hernia repair (Resolved) History of appendectomy (Resolved) Family History Other No significant family history Social History Preferred Language: Greenlandic Communication Ability: Effective 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 Speech and thought process appropriate. Patient appears to be moderately anxious. Cognition intact. Patient oriented to person place and time. Head: Normocephalic and atraumatic. Eyes: Pupils equal round reactive to light. Neck: Supple without adenopathy and full range of motion. Musculoskeletal: No evidence of generalized tenderness to palpation. No evidence of hyperpathia, hyperalgesia or allodynic response. Chest: Nontender to palpation of the costosternal junction. Abdomen: Soft and nondistended. No organomegaly. Bowel sounds active. Nontender to palpation. No rebound or guarding. Back/spine: No visible abnormalities. Patient nontender over the midline, facet joints or SI joints provocative testing. Patient has some generalized tenderness in the paravertebral thoracic region which is nonfocal. No appreciable spasm or myoneural trigger points. Lower extremities: SLR negative. Strength testing 4/5 throughout the lower extremities without focal deficit. Sensation was intact to sharp and dull without deficit distally. No evidence of allodynia, hyperpathia or hyperalgesic response. Neurologic: Cranial nerves grossly intact. Ambulatory function was slowed, slightly shuffling and guarded as he was witnessed walking to the bathroom. Results Diagnostic Review CT: enhanced and reports reviewed CT Findings: [facility], [place] [phone] CT Scan Report Patient: BOBY MACE Date: 08/13/18 MR#: [id number]: [address] Acct ID:[id number]: [address] Date: 1950[facility] Zip: [place] [id number] Age: 68Location: ED Sex: M Room/Bed: Att Phy: Diagnosis: AB PAIN [place] Phy: Rio Mccall M.D.Service Date: 08/13/18 Fam Phy: Nichole Herrera III, MDInterpreting Phy: Carlos Eduardo Garcia MD Admit Phy: Ordering Phy: Daniel Gallego MD cc: ~ CT SCAN OF THE ABDOMEN AND PELVIS WITH IV CONTRAST CLINICAL HISTORY: Generalized abdominal pain. COMPARISON STUDY: Abdominal CT dated 08/01/2017. TECHNIQUE: Following the IV administration of 90 cc of Optiray 320, CT scan of the abdomen and pelvis is performed from the lung bases to the proximal femora. Images are reviewed in the axial, sagittal, and coronal planes. IV contrast was administered without complication. Oral contrast was utilized. A dose lowering technique was utilized adhering to the principles of ALARA. CT DOSE: 370.84 mGy.cm FINDINGS: Lung bases: The heart is normal in size and without pericardial effusion. There are coronary artery calcifications. A fat-containing Bochdalek hernia is noted on the right. The lung bases are clear noting bibasilar scarring/atelectasis. A punctate calcified granuloma is seen at the left lung base. There is a small hiatal hernia. Liver: The contrast-enhanced liver is normal in size, contour, and attenuation. There is no intrahepatic biliary ductal dilatation. The hepatic veins and portal veins are patent. A 9 mm cyst is noted in the left lobe. Gallbladder: Unremarkable. Spleen: Normal in size and attenuation. Pancreas: Unremarkable. Adrenal glands: Unremarkable. Kidneys: The contrast enhanced kidneys demonstrate cortical atrophy and are without hydronephrosis. The kidneys enhance symmetrically. 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 Additional subcentimeter cortical hypodensities likely represent cysts but are too small for definitive characterization. Abdominal vasculature: The abdominal aorta is normal in course and caliber noting moderate atherosclerotic calcification. Bowel: There is no bowel obstruction. There is mild to moderate diverticulosis of the left colon without CT evidence of acute diverticulitis. Enteric contrast reaches the colon. The appendix is not identified and reported surgically absent. Small bowel loops are matted along the ventral abdominal wall, likely related to adhesions. Peritoneum: There is no intraperitoneal free air or abdominal ascites. There is a fat-containing umbilical hernia. There is evidence of previous ventral hernia repair. Lymphadenopathy: None. Pelvic viscera: The prostate gland is enlarged and heterogeneous, measuring 5.5 cm in transverse diameter. There is median lobe hypertrophy. The bladder wall is thickened and trabeculated indicating chronic outlet obstruction. Skeletal structures: The skeletal structures are osteopenic. There is mild lumbosacral spondylosis. No lytic or blastic lesions are seen. IMPRESSION: 1. There are no acute infectious or inflammatory findings in the abdomen or pelvis. 2. Mild to moderate diverticulosis of the left colon without CT evidence of acute diverticulitis. 3. Additional findings as above. Electronically signed by: Carlos Eduardo Garcia M.D. 08/13/2018 7:26 PM Dictated: 08/13/181917 Transcribed: 08/13/181917 Radiology: reports reviewed Radiology Findings: [facility], [place] [phone] XRay Report Patient: BOBY MACE Date: 08/13/18 MR#: [id number]: [address] Acct ID:[id number]: [address] Date: 1950[facility] Zip: [place] [address] Age: 68Location: ED Sex: M Room/Bed: Att Phy: Diagnosis: AB PAIN Adilene Phy: Rio Mccall M.D.Service Date: 08/13/18 Fam Phy: Nichole Herrera III, MDInterpreting Phy: Michael Bond MD Admit Phy: Ordering Phy: Daron Cochran M.D. cc: ~ XR chest 1V portable HISTORY: Atypical Chest Pain COMPARISON: Chest 08/01/2017. FINDINGS: There are low lung volumes. A few bibasilar linear densities consistent with subsegmental atelectasis or scarring. This has improved in the interval. No new focal lung consolidations to suggest pneumonia. No evidence for pulmonary edema. The heart remains borderline enlarged. IMPRESSION: No acute process. Electronically signed by: Michael Bond M.D. 08/13/2018 4:29 PM Dictated: 08/13/18 1628 Transcribed: 08/13/18 1628 Previous Records Review Previous Records: personally reviewed by me Opioid Risk Assessment Opioid Risk Assessment: risk assessment performed and moderate risk identified
[2018-08-14] MEDS ORDERED: FAMOTIDINE 20 MG in SYRINGE 3 ML IV SCH (09:00)
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
[2018-08-14] MEDS: NSS + 20MEQ KCL 20 MEQ/1,000 ML BAG IV SCH (10:08)
--- NOTE | 2018-08-14 17:49 | Hospitalist Progress Note ---
Date of Service August 14, 2018 Assessment & Plan (1) Abdominal pain, generalized: Abd Pain: unclear etiology h/o chronic pain syndrome, small bowel obstruction Guarding diet, no further evidence of bowel pathology, patient continued to request for IV morphine Diarrhea: Resolved no further episode noted CT ABD: There are no acute infectious or inflammatory findings in the abdomen or pelvis. Mild to moderate diverticulosis of the left colon without CT evidence of acute diverticulitis. Diet advanced tolerating well Chronic pain medication abuse/narcotic pain medication addiction Pain management consulted, appreciate input no further narcotics pain medication will be prescribed, Follows with neurology for chronic syringomyelia, Dr. Hernandez consulted, appreciate input, no changes medication needed patient's pain complaint is of the proportion from the clinical presentation Ordered MRI of thoracic and cervical spine to assess for syringomyelia which patient refused DM II: Last A1C: 6.3 on 06/11/18 Continue ISS, basal Insulin H/O SVT Hypertension Continue diltiazem Hypothyroidism Continue levothyroxine Obstructive sleep apnea CPAP QHS H/O Syringomyelia Chronic pain syndrome Presents with worsening generalized pain, burning sensation, numbness and tingling Neurology consulted-patient refused to have MRI done In diffusing MRI since 2013 Pain management consult appreciated, does not recommend any increment of pain medication, DVT Px: Lovenox SQ Code Status: Full Code Disposition: Discharge home tomorrow Subjective Patient was found walking on the hallway, constantly demanding to get pain medication Ordered IV morphine every 4 hours, no change in pain medication ordered Patient refused to have MRI scan done earlier offered by his neurology Dr. Herrera He reported earlier that he eats not able to eat, losing weight Per nursing patient finished 100% of meal, having frequent snacks in between Physical Exam Physical Exam: GENERAL: No sign of distress, HEENT: Sclera nonicteric, pink-purple bilateral equal reactive to light extraocular muscle intact Normal oral mucosa, neck: No JVD, no thyromegaly, trachea midline Lungs: Clear to auscultate, no wheeze or rales Cardiovascular: Regular S1 and S2, no murmur or gallop, no JVD, no lower extremity edema Abdomen: Soft, nontender, bowel sounds active, no hepatosplenomegaly Extremities: No rash or deformity, normal joint, Neuro: No focal neurological deficit, no dysarthria, no facial droop Psych: Alert awake oriented x3: Euthymic Skin: No rash LYMPH NODES: No cervical lymphadenopathy Results & Data Vital Signs (Past 12 Hours) Vital Signs Temp Pulse Pulse Resp BP BP Pulse Ox 08/14/18 15:38 37.0 C 67 18 149/77 H 94 08/14/18 11:17 36.9 C 71 18 143/73 H 96 08/14/18 07:13 36.5 C 70 18 125/64 96 08/14/18 07:11 60
[2018-08-14] MEDS: FAMOTIDINE 20 MG TAB PO SCH (20:30)
[2018-08-14] MEDS: MIRTAZAPINE TAB 15 MG TAB PO SCH (20:30)
[2018-08-14] MEDS ORDERED: INSULIN GLARGINE SOLOSTAR 100 UNITS/ML 3 ML PEN SQ SCH (21:00)
[2018-08-14] MEDS: ZOLPIDEM TARTRATE 10 MG TAB PO SCH (23:34)
[2018-08-15] MEDS: CHECK FENTANYL PATCH PLACEMENT SCH ×2 (00:22→08:20)
[2018-08-15] MEDS: MoRPHine SULFATE 2 MG/ML CARP IV PRN ×2 (05:55→12:55)
[2018-08-15] MEDS: LEVOTHYROXINE SODIUM 25 MCG TABLET PO SCH (05:56)
[2018-08-15] MEDS: dilTIAZem ER 120 MG CAPCR PO SCH (08:15)
[2018-08-15] MEDS: INSULIN ASPART 100 UNITS/ML 3 ML PEN SC SCH ×2 (08:16→13:03)
[2018-08-15] MEDS: POTASSIUM CHLORIDE 20 MEQ TABCR PO SCH (08:17)
[2018-08-15] MEDS: ENOXAPARIN INJ 40 MG/0.4 ML SYR SQ SCH (08:18)
[2018-08-15] MEDS: FAMOTIDINE 20 MG TAB PO SCH (08:18)
[2018-08-15] MEDS: LORazepam 1 MG TAB PO SCH (08:20)
[2018-08-15] MEDS ORDERED: LORazepam 0.5 MG/1 ML VIAL IV SCH (11:45)
--- NOTE | 2018-08-15 18:57 | Discharge Summary ---
Date of Service August 15, 2018 Admission HPI Per Admitting Provider Patient is a 68-year-old man with history of anxiety depression, insomnia, SVT, BPH, diabetes, hypertension, hypothyroidism, obstructive sleep apnea, syringomyelia, history of recurrent small bowel obstruction, and chronic pain syndrome and other problems presents with history of worsening generalized pain and and abdominal pain since last few days. He describes the abdominal pain like a bandlike,8/10, nonradiating, sharp to dull, decreases with pain medication, associated with diarrhea since 1 week duration. He admits to using Z-Jignesh last month for URI. Denies any blood in the stool. Also states having generalized pain, especially upper back, associated with burning sensation, tingling and numbness in the arms and feet which he believes is secondary to syringomyelia. He follows with Dr. Herrera as outpatient. States his appetite is poor secondary to pain, denies any nausea vomiting, fever chills, chest pain, shortness of breath, dizziness. 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 He was seen 2 days ago and [facility] ED with similar symptoms and was told that his CAT scan of the abdomen was normal and was discharged on Bentyl which he states does not help. He also states that he had difficulty urinating since last 1 to 2 days, was able to urinate while in ED today. Principal Diagnosis Chronic pain syndrome, narcotic pain medication abuse Discharge Data Allergies Allergy/AdvReac Type Severity Reaction Status Date / Time amitriptyline Allergy Intermediate SHORTNESS Unverified 08/13/18 17:05 OF BREATH linaclotide Allergy Intermediate rash, Verified 08/13/18 17:05 severe diarrhea, swelling methadone Allergy Intermediate SHORTNESS Unverified 08/13/18 17:05 OF BREATH tetanus immune globulin Allergy Unknown SWELLING Verified 08/13/18 17:05 blue dye AdvReac Unknown UNKNOWN Unverified 08/13/18 17:05 duloxetine AdvReac Unknown UNKNOWN Unverified 08/13/18 17:05 Consultations 08/13/18 17:47 ED Decision to Admit Stat 08/13/18 20:57 Consult Case Management - Discharge Planning Routine Consult Neurology Routine 08/14/18 08:00 Consult Pain Management Routine Ordered Studies 08/13/18 18:42 CT abd pelvis IV con only Stat 08/15/18 11:32 MR cervical spine wo/w con Routine 08/15/18 11:40 MR lumbar spine wo/w con Routine MR thoracic spine wo/w con Routine Hospital Course (1) Abdominal pain, generalized: And found walking on the hallway, demanding pain medication, Refused for MRI scan yesterday Today agreeable but wants to have general anesthesia, patient is counseled and general anesthesia is not indicated for a diagnostic MRI study Also continues to request for improvement IV morphine, IV Ativan: MRI of thoracic lumbar spine can be done an outpatient as it is a diagnostic and screening imaging that will be followed by Dr. Herrera in the clinic No further intervention or medication adjustment needed Patient will be discharged home today Prescription given for outpatient MRI testing Patient got very agitated, Tore up MRI order scripts Demands to have prescription for Ambien PDMP checked, patient filled up 30-day supply of Ambien on 07/26/2018, No further prescription will be given, patient is updated He correct himself that he finally found the last 8 Ambien tablets Patient and his are very unhappy as adequate pain control was not offered, Patient does not show any evidence of discomfort, Independent in the hallway, Patient counseled that for his chronic pain medication adjustment he will be followed up with his family physician appointment scheduled for next week already Patient is discharged home no prescription for pain medication given on discharge Presents with abdominal pain, symptom has resolved no further episode, tolerating diet well CT ABD: There are no acute infectious or inflammatory findings in the abdomen or pelvis. Mild to moderate diverticulosis of the left colon without CT evidence of acute diverticulitis. Chronic pain medication abuse/narcotic pain medication addiction Pain management consulted, appreciate input no further narcotics pain medication will be prescribed, Follows with neurology for chronic syringomyelia, Dr. Hernandez consulted, appreciate input, no changes medication needed patient's pain complaint is of the proportion from the clinical presentation Ordered MRI of thoracic and cervical spine to assess for syringomyelia which patient refused DM II: Last A1C: 6.3 on 06/11/18 Continue ISS, basal Insulin H/O SVT Hypertension Continue diltiazem Hypothyroidism Continue levothyroxine Obstructive sleep apnea CPAP QHS H/O Syringomyelia Chronic pain syndrome Presents with worsening generalized pain, burning sensation, numbness and tingling Neurology consulted-patient refused to have MRI done In diffusing MRI since 2013 Pain management consult appreciated, does not recommend any increment of pain medication, DVT Px: Lovenox SQ Code Status: Full Code Disposition: Patient is discharged home today Total Time Total Time Spent Total Time Spent (In Minutes): Approximately 45 minutes Total Time Includes: Examination of the Patient, Discharge Planning and Medication Reconciliation Discharge Plan Discharge Items Patient Disposition: Home - Self-Care Reason For Visit: AB PAIN Discharge Diagnosis: Chronic neck/shoulders/back pain/Syringomyelia / Discharge Goals: Decrease discomfort, Diagnostic testing and Therapeutic intervention Activity: Resume your previous activity Non-emergency contact: Primary Care Provider Call non-emergency contact if: you have any medication questions Follow-up/Referrals: Rio Mccall M.D. [Primary Care Provider] - 08/20/18 3:00 pm Diet: Regular Other Ambulatory Orders: MR cervical spine wo/w con (Routine) Timeframe: 1 Day Location: Determined by Patient Ordered By: Larissa Aguilar MR lumbar spine wo/w con (Routine) Timeframe: 1 Week Location: Determined by Patient Ordered By: Larissa Aguilar MR thoracic spine wo/w con (Routine) Timeframe: 1 Week Location: Determined by Patient Ordered By: Larissa Aguilar [facility] Provider Instructions: Hospital follow-up with family physician Dr. Mccall on 08/20/2018 at 3 PM Outpatient: MRI of cervical/thoracic/lumbar spine Follow-up with neurology Dr. Herrera as per scheduled Prescriptions: Continued fentanyl 50 mcg/hr patch 72 hour 50 mcg topical Q3D RF: 0 levothyroxine [Synthroid] 25 mcg Tablet 25 mcg PO DAILY RF: 0 diltiazem HCl 120 mg capsule,extended release 24 hr 120 mg PO DAILY RF: 0 docusate sodium 100 mg Capsule 100 mg PO BID RF: 0 simethicone [Gas-X Extra Strength] 125 mg Tablet,Chewable 250 mg PO UD PRN (Reason: Gi Upset) RF: 0 zolpidem 10 mg Tablet 10 mg PO HS RF: 0 potassium chloride 20 mEq Tablet Extended Release 20 meq PO DAILY RF: 0 Toujeo SoloStar U-300 Insulin 300 unit/mL (1.5 mL) Insulin Pen 25 unit SUBCUT QPM RF: 0 carica papaya [Papaya Enzyme] Tablet PO TIDM PRN (Reason: GAS/BLOATING) RF: 0 polyethylene glycol 3350 [Miralax] 17 gram Powder In Packet 17 g PO DAILY PRN (Reason: Constipation) RF: 0 dicyclomine 20 mg tablet 20 mg PO QID PRN (Reason: ADB PAIN) RF: 0 mirtazapine [Remeron] 15 mg tablet 15 mg PO HS RF: 0 lorazepam [Ativan] 1 mg tablet 1 mg PO BID RF: 0 cholecalciferol (vitamin D3) [Vitamin D3] 5,000 unit Tablet 5,000 unit PO DAILY PRN (Reason: IF BLOODWORK IS LOW) RF: 0 Charcoal Caps 2 tabs PO .PRN RF: 0 Mylanta 10 - 20 ml PO UD PRN (Reason: Gi Upset) RF: 0 Jackson Xl 300 mg PO TID RF: 0 Pepcin 10 mg PO .PRN RF: 0 Stand-Alone Forms: Call Back Authorization, [facility] Discharge Orders: Discharge Order (Routine); Ordered 08/15/18 Ordered By: Larissa Aguilar Admission Data Admit Date/Time: 08/13/18 19:17 Attending Provider: Larissa Aguilar Admit Provider: Daniel Gallego Primary Care Provider: Rio Mccall Other Providers: Daniel Gallego ; Fabien Herrera III ; Ben Stacy Service: Telemetry Medical Other Interventions: Discharge Summary Assessment (RN) Last Done: 08/15/18 14:16 DC Date/Time DO NOT enter until pt leaves facility: 08/15/18 15:33
[2018-08-16] MEDS ORDERED: fentaNYL 50 MCG/HR TDSY TD SCH (13:00)
== END 2018-08-15 15:33 | disposition home or self-care (01) | DRG 92 ==
LOC: ED 15:42 → 2W 19:17

== ENCOUNTER 2024-11-14 01:41 | Observation (INO) ==
[2024-11-14 02:05] VITALS: TEMP 98.2
--- NOTE | 2024-11-14 02:45 | XRay Report ---
EXAM: XR chest 1V portable CLINICAL HISTORY: Chest pain, nonspecific. TECHNIQUE: An X-ray image of the chest is obtained in AP projection. COMPARISON: 05/23/2020 X-ray. FINDINGS: Pulmonary Parenchyma: Atelectatic band in the left lower zone. Blunting of the left costophrenic angle is likely due to overlying soft tissues. Small nodular opacity in the left mid zone. No evidence of consolidation, collapse, or focal opacities. No evidence of pleural effusion or pleural thickening. Heart and Mediastinum: Heart size and shape are normal. No mediastinal widening or masses. No hilar or mediastinal lymphadenopathy. Calcification of the aortic arch. Bony Thorax: Bony thorax appears intact without fractures or deformities. Mild degenerative changes in acromioclavicular and glenohumeral joints bilaterally. Soft Tissues: Soft tissues overlying the chest wall are unremarkable. Chest leads are seen. IMPRESSION: 1. No evidence of consolidation or pleural effusion on either side. 2. No significant interval change. Electronically signed by Elbert Joshi 11-14-2024 02:44 AM
[2024-11-14 03:04] LABS: Hematocrit (blood only) 39.2 % (42.0-52.0); Hemoglobin 13.6 g/dl (14.0-18.0); Immature Granulocytes # (auto) 0.06 K/uL (0.01-0.20); Immature Granulocytes % (auto) 0.5 %; Mean Corpuscular Hemoglobin 31.0 pg (25.0-34.0); Mean Corpuscular Volume 89.3 fL (80.0-100.0); Platelet Count 211 K/uL (130-400); RDW Standard Deviation 43.4 fL (36.4-46.3); Red Blood Count 4.39 M/uL (4.70-6.10); White Blood Count 11.02 K/ul (4.8-10.8)
[2024-11-14 03:23] LABS: Alanine Aminotransferase 9.0 U/L (7-52); Albumin Globulin Ratio 1.5 (0.9-2); Albumin Level 4.2 gm/dl (3.4-5.0); Alkaline Phosphatase 55.0 U/L (34-104); Anion Gap 12.0 (3-11); Bilirubin,Total 0.6 mg/dl (0.2-1.0); Blood Urea Nitrogen 20.0 mg/dl (6-23); Calcium 9.7 mg/dl (8.6-10.3); Carbon Dioxide 27.0 mmol/L (21-32); Chloride 97.0 mmol/L (98-107); Creatinine Clr Calc Pharmacy 70.3 ml/min; Globulin 2.8 gm/dl (2.5-4.0); Glucose 191.0 mg/dl (70-99(Fasting)); Lipase 14.0 U/L (11-82); Potassium 3.7 mmol/L (3.5-5.1); Sodium 136.0 mmol/L (136-145); Total Protein 7.0 gm/dl (6.0-8.3)
--- NOTE | 2024-11-14 03:23 | Emergency Department Note ---
Impression & Plan Chest pain Admit to the [facility] ED Provider Note NAME: BOBY TAMEZ AGE: 74 SEX: Male INFORMANT: Patient ED PROVIDER(S): Sandra Webb DO CHIEF COMPLAINT: diaphoresis and cough PLAN: Disposition: Admit to the [facility] MEDICAL DECISION MAKING: This is a 74-year-old male patient who presents to the emergency department after an episode of significant diaphoresis, coughing and gagging. Patient describes a chronic cough but became concerned tonight when he developed chest pain that radiated through to his upper back around 11:30 PM this evening. Portable chest x-ray was unremarkable. Laboratory studies revealed no significant leukocytosis or anemia. Troponin was negative. Glucose was 191. Patient's discomfort resolved after receiving initial nitro but then returned. He received oral aspirin. A repeat EKG was done at that time which showed no specific EKG changes but the patient was given additional sublingual nitroglycerin which completely relieved his discomfort. [facility]. Triage Nursing notes: reviewed and agree With them. Vital Signs: reviewed and remarkable for tachycardia Additional History obtained from: patient's is at the bedside Chronic Medical/Social Conditions affecting care: [none] Prior/ Outside/ External records reviewed: [none] Differential Diagnosis: cardiac dysrhythmia, cardiac ischemia, aortic dissection, costochondritis, GERD, aspiration pneumonia Diagnostics, independently interpreted by me: ECG: sinus tachycardia at a rate of 122. The patient has ST segment depression in the inferior leads which is somewhat concerning. repeat ECG: Sinus tachycardia at a rate of [address] segment depression in leads II and aVF and T wave inversion in lead III Cardiac Monitoring: Sinus tachycardia at 116 Imaging studies: portable chest x-ray: no acute pulmonary infiltrates or consolidation. There is no cardiomegaly as per my independent interpretation HPI: 74 year old Male arrives for evaluation of diaphoresis and cough. an episode of significant diaphoresis, coughing and gagging. Patient describes a chronic cough but became concerned tonight when he developed chest pain that radiated through to his upper back around 11:30 PM this evening. PAST MEDICAL HISTORY: See Below, PAST SURGICAL HISTORY: See Below, SOCIAL HISTORY: See Below, HOME MEDICATIONS: See list ALLERGIES: See long list VITALS: See below Physical exam: HEENT: Head - normocephalic and atraumatic. Pupils are equal, round, and reactive to light. Extraocular eye muscles are intact, and sclera are anicteric. Nose - moist nasal mucosa without discharge. Mouth - moist buccal mucosa. Oropharynx is nonerythematous and there is no tonsillar exudate or edema noted. Neck: Supple; no JVD, nuchal rigidity, cervical lymphadenopathy, or auscultated bruits. Heart: tachycardic rate and regular rhythm. There is a normal S1 and S2 with no murmurs, clicks, or gallops appreciated. Lungs: Clear to auscultation bilaterally with no wheezes, rales, or rhonchi. Abdomen: Soft, completely nontender, nondistended, with good bowel sounds. There are no palpable pulsatile masses or hepatosplenomegaly. There is no guarding, rigidity, or rebound noted. Extremities: No evidence of cyanosis, clubbing, or edema. There are easily palpable peripheral pulses. Skin: Pale, warm and dry with good turgor and no rashes. Back: No pain to palpation over the upper back or cervical spine. Emergency department treatment: residential monitor, sublingual nitro Emergency Department course: The patient was evaluated in room A-3. A complete history and physical was performed. Previous electronic medical records were reviewed. An order was placed for continuous cardiac monitoring. The patient was in a sinus tachycardia at 116. A twelve-lead EKG was obtained. Laboratory studies were drawn as above. Portable chest x-ray was performed. Patient's chest discomfort recurred while he was in the emergency department. A repeat ECG was performed and the patient was given sublingual nitro which relieved his pain again. Past Med/Surg History Problem List (Updated 11/14/24 @ 18:42 by Sandra Webb DO) Chest pain (Acute) Chest pain Facet arthropathy, cervical Chronic headaches History of migraine Polyneuropathy Opioid dependence (Chronic) Benzodiazepine withdrawal BPH (benign prostatic hyperplasia) (Chronic) Anxiety and depression (Chronic) SVT (supraventricular tachycardia) (Chronic) Hypothyroidism (Chronic) Obstructive sleep apnea (Chronic) Small bowel obstruction (Chronic) Chronic pain syndrome (Chronic) Insomnia (Chronic) Hypokalemia (Acute) Hypophosphatemia (Acute) Abdominal pain, generalized (Acute) Chronic neck and back pain (Acute) Syringomyelia (Chronic) Diabetes (Chronic) HTN (hypertension) (Chronic) Anxiety disorder, unspecified Chronic pain (Chronic) Hypothyroidism Major depressive disorder, recurrent, moderate Migraines Misuse of prescription only drugs Obstructive sleep apnea Family History Father Heart disease Lung cancer Mother Lung cancer Social History Smoking Status: Never smoker Hx Alcohol Use: Yes Alcohol type: wine and hard liquor Hx Substance Use: No Preferred Language: Vincentian Communication Ability: Effective Paramedic Rn Required: No Beliefs That Will Affect Care: None marital status: Current Living Situation: Spouse current occupational status: disabled 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 Exposed to Agent [place] in the [place] War. Feels Safe at Home: Yes Safety Concerns: Feels Safe At This Time Assistive Devices: CPAP Allergies Allergies Allergy/AdvReac Type Severity Reaction Status Date / Time amitriptyline Allergy Intermediate SHORTNESS Verified 11/14/24 02:20 OF BREATH linaclotide Allergy Intermediate rash, Verified 11/14/24 02:20 severe diarrhea, swelling methadone Allergy Intermediate SHORTNESS Verified 11/14/24 02:20 OF BREATH tetanus immune globulin Allergy Intermediate EXTRA Verified 11/14/24 02:20 SWELLING AT SITE AND EXTREMITY doxycycline Allergy Mild ON Verified 11/14/24 02:20 [facility] fenofibrate [From Tricor] Allergy Mild ON Verified 11/14/24 02:20 [facility] pregabalin [From Lyrica] Allergy Mild Unknown Verified 11/14/24 02:20 rosuvastatin [From Crestor] Allergy Mild ON Verified 11/14/24 02:20 [facility] simvastatin [From Zocor] Allergy Mild ON Verified 11/14/24 02:20 [facility] Tricyclic Antidepressants Allergy Mild ON Verified 11/14/24 02:20 and Tricy [facility] Yeast Allergy Mild ON Verified 11/14/24 02:20 [facility] glyburide Allergy Unknown ON Verified 11/14/24 02:20 [facility] quetiapine Allergy Unknown ON Verified 11/14/24 02:20 [facility] Sulfa (Sulfonamide Allergy Unknown ON Verified 11/14/24 02:20 Antibiotics) [facility] metformin AdvReac Intermediate NAUSEA/VOMI Verified 11/14/24 02:20 TING blue dye AdvReac Unknown UNKNOWN Verified 11/14/24 02:20 duloxetine AdvReac Unknown ON Verified 11/14/24 02:20 [facility] Home Meds Home Medications Medication Instructions Recorded Confirmed CPAP Machine 05/18/23 03/13/24 famotidine 40 mg tablet (Pepcid) 40 mg PO QAM 05/18/23 11/14/24 furosemide 20 mg tablet 20 mg PO QAM 05/18/23 11/14/24 levothyroxine 50 mcg tablet 50 mcg PO DAILYBB 05/18/23 11/14/24 (Levoxyl) tamsulosin 0.4 mg capsule (Flomax) 0.4 mg PO DAILY 05/18/23 11/14/24 metoprolol succinate 25 mg 50 mg PO DAILY 09/05/23 11/14/24 tablet,extended release 24 hr potassium chloride 10 mEq 20 meq PO DAILY 09/05/23 11/14/24 capsule,extended release fentanyl 25 mcg/hr transdermal 1 patch transdermal Q48H 11/27/23 11/14/24 patch hydrocodone 10 mg-acetaminophen 1 tab PO Q8H PRN Severe Pain 11/27/23 11/14/24 325 mg tablet (Scale Score 7-10) lorazepam 1 mg tablet (Ativan) 1 mg PO HS 11/27/23 11/14/24 zolpidem 3.5 mg sublingual tablet 3.5 mg sublingual HS PRN Sleep 11/27/23 11/14/24 insulin glargine 100 unit/mL (3 30 unit subcut PM 11/14/24 11/14/24 mL) subcutaneous pen (Lantus Solostar U-100 Insulin) mv-mn-folic 200 mcg-vit K 15 1 cap PO DAILY 11/14/24 11/14/24 mcg-lutein 5 mg-zeaxanthin 1 mg capsule (PreserVision AREDS 2 Plus Multivit) omega 8-cey-tjs-fish oil 1,200 mg 1 cap PO DAILY 11/14/24 11/14/24 (144 mg-216 mg) capsule (Fish Oil) rimegepant 75 mg disintegrating 75 mg PO Q OTHER DAY 11/14/24 11/14/24 tablet (Nurtec ODT) rizatriptan 10 mg tablet See Rx Instructions .Route 11/14/24 11/14/24 .COMPLEX PRN Migraine Headache triamcinolone acetonide 0.1 % 1 applic topical BID PRN SKIN 11/14/24 11/14/24 topical cream IRRITATIONS Previous Rx's Medication Instructions Recorded aspirin 81 mg tablet,delayed 81 mg PO DAILY #30 tabs 11/14/24 release pantoprazole 40 mg tablet,delayed 40 mg PO QAM #30 tabs 11/14/24 release Results & Data (ED) Vital Signs Vital Signs - 24 hr 11/14/24 01:45 11/14/24 01:45 11/14/24 02:00 Temperature 36.8 C Temperature Source Oral Pulse Rate 119 H 126 H Pulse Rate [Finger] Pulse Rate from SpO2 Sensor 122 H Pulse Rhythm Regular Pulse Rhythm [Finger] Pulse Strength Normal Pulse Strength [Finger] Respiratory Rate 20 19 Respiratory Effort / Characteristics Non-Labored Spontaneous Respiratory Depth Normal Respiratory Pattern Regular Blood Pressure 124/82 124/82 Blood Pressure [Left Arm] Blood Pressure Mean 96 96 Blood Pressure Mean [Left Arm] Blood Pressure Position Lying Blood Pressure Position [Left Arm] Pulse Oximetry 93 93 Oxygen Delivery Method Room Air Room Air Sepsis Recent Fever Within 48 Hours No Sepsis New/Unexplained Change in Mental Status N/A Sepsis Action Taken by Nursing No Action Required 11/14/24 02:18 11/14/24 02:23 11/14/24 02:30 Temperature Temperature Source Pulse Rate 121 H 117 H Pulse Rate [Finger] Pulse Rate from SpO2 Sensor Pulse Rhythm Pulse Rhythm [Finger] Pulse Strength Pulse Strength [Finger] Respiratory Rate 16 Respiratory Effort / Characteristics Respiratory Depth Respiratory Pattern Blood Pressure 155/91 H Blood Pressure [Left Arm] Blood Pressure Mean 108 Blood Pressure Mean [Left Arm] Blood Pressure Position Blood Pressure Position [Left Arm] Pulse Oximetry 94 94 Oxygen Delivery Method Room Air Sepsis Recent Fever Within 48 Hours Sepsis New/Unexplained Change in Mental Status Sepsis Action Taken by Nursing 11/14/24 03:03 11/14/24 03:33 11/14/24 03:37 Temperature Temperature Source Pulse Rate 117 H 112 H 113 H Pulse Rate [Finger] Pulse Rate from SpO2 Sensor 116 H 111 H Pulse Rhythm Pulse Rhythm [Finger] Pulse Strength Pulse Strength [Finger] Respiratory Rate 17 15 Respiratory Effort / Characteristics Respiratory Depth Respiratory Pattern Blood Pressure 149/107 H 138/86 138/86 Blood Pressure [Left Arm] Blood Pressure Mean 121 103 Blood Pressure Mean [Left Arm] Blood Pressure Position Blood Pressure Position [Left Arm] Pulse Oximetry 92 95 Oxygen Delivery Method Sepsis Recent Fever Within 48 Hours Sepsis New/Unexplained Change in Mental Status Sepsis Action Taken by Nursing 11/14/24 04:00 11/14/24 04:24 Temperature Temperature Source Pulse Rate 98 H Pulse Rate [Finger] 98 H Pulse Rate from SpO2 Sensor Pulse Rhythm Pulse Rhythm [Finger] Regular Pulse Strength Pulse Strength [Finger] Normal Respiratory Rate 20 Respiratory Effort / Characteristics Non-Labored Spontaneous Respiratory Depth Normal Respiratory Pattern Regular Blood Pressure 110/73 Blood Pressure [Left Arm] 110/73 Blood Pressure Mean Blood Pressure Mean [Left Arm] 85 Blood Pressure Position Blood Pressure Position [Left Arm] Lying Pulse Oximetry 93 Oxygen Delivery Method Room Air Sepsis Recent Fever Within 48 Hours Sepsis New/Unexplained Change in Mental Status Sepsis Action Taken by Nursing Laboratory Data 11/14/24 09:27 11/14/24 09:28 Lab Results 11/14/24 Range/Units 02:47 WBC 11.02 H (4.8-10.8) K/ul RBC 4.39 L (4.70-6.10) M/uL Hgb 13.6 L (14.0-18.0) g/dl Hct 39.2 L (42.0-52.0) % MCV 89.3 (80.0-100.0) fL MCH 31.0 (25.0-34.0) pg MCHC 34.7 (32.0-36.0) g/dL RDW Std Deviation 43.4 (36.4-46.3) fL RDW Coeff of Val 13.2 (11.5-14.5) % Plt Count 211 (130-400) K/uL MPV 9.7 (9.4-12.4) fL Immature Gran % (Auto) 0.5 % Neut % (Auto) 82.2 % Lymph % (Auto) 8.8 % [place] % (Auto) 7.0 % Eos % (Auto) 1.0 % Baso % (Auto) 0.5 % Neut # (Auto) 9.06 H (1.40-6.50) K/uL Lymph # (Auto) 0.97 L (1.20-3.40) K/uL [place] # (Auto) 0.77 H (0.11-0.59) K/uL Eos # (Auto) 0.11 (0.00-0.50) K/uL Baso # (Auto) 0.05 (0.00-0.20) K/uL Immature Gran # (Auto) 0.06 (0.01-0.20) K/uL Sodium 136 (136-145) mmol/L Potassium 3.7 (3.5-5.1) mmol/L Chloride 97 L (98-107) mmol/L Carbon Dioxide 27 (21-32) mmol/L Anion Gap 12 H (3-11) BUN 20 (6-23) mg/dl Creatinine 0.92 (0.6-1.4) mg/dl Est Cr Clr Drug Dosing 70.3 ml/min eGFR 86.21 BUN/Creatinine Ratio 21.7 H (10-20) Glucose 191 H (70-99(Fasting)) mg/dl Calcium 9.7 (8.6-10.3) mg/dl Total Bilirubin 0.6 (0.2-1.0) mg/dl AST 15 (13-39) U/L ALT 9 (7-52) U/L Alkaline Phosphatase 55 (34-104) U/L Troponin I High Sens 13.1 (0-20) pg/ml Total Protein 7.0 (6.0-8.3) gm/dl Albumin 4.2 (3.4-5.0) gm/dl Globulin 2.8 (2.5-4.0) gm/dl Albumin/Globulin Ratio 1.5 (0.9-2) Lipase 14 (11-82) U/L Administered Medications Hydrocodone Bitart/Acetaminophen (Hydrocodone/Acetaminophen 10/325 Tab) 1 tab PO Q8H PRN PRN Reason: Severe Pain (Scale Score 7-10) Stop: 11/28/24 09:16 Last Admin: 11/14/24 16:25 Dose: 1 tab Documented By: RRR Aspirin (Aspirin 81 Mg Ectab) 81 mg PO DAILY [facility] Stop: 12/14/24 14:29 Last Admin: 11/14/24 15:43 Dose: 81 mg Documented By: RRR Famotidine (Famotidine 40 Mg Tablet) 40 mg PO QAM [facility] Stop: 12/14/24 09:29 Last Admin: 11/14/24 10:25 Dose: 40 mg Documented By: CASSIE Fentanyl (Fentanyl 25 Mcg/Hr Tdsy) 1 patch TD Q48H [facility] Stop: 11/28/24 11:29 Last Admin: 11/14/24 12:18 Dose: 1 patch Documented By: CASSIE Furosemide (Furosemide 20 Mg Tab) 20 mg PO QAM [facility] Stop: 12/14/24 09:29 Last Admin: 11/14/24 10:25 Dose: 20 mg Documented By: CASSIE Insulin Aspart (Insulin Aspart Per Unit Charge) 0 units SC ACHS [facility] Stop: 12/14/24 12:44 Last Admin: 11/14/24 13:06 Dose: 7 units Documented By: CASSIE Co-signed By: PATY Levothyroxine Sodium (Levothyroxine Sodium 50 Mcg Tablet) 50 mcg PO DAILYBB [facility] Stop: 12/14/24 09:29 Last Admin: 11/14/24 10:25 Dose: 50 mcg Documented By: CASSIE Metoprolol Succinate (Metoprolol Succ 50mg Ext Rel Tab) 50 mg PO DAILY [facility] Stop: 12/14/24 09:29 Last Admin: 11/14/24 10:25 Dose: 50 mg Documented By: CASSIE Miscellaneous (Fentanyl Patch Remove & Waste) 1 each N/A Q48H [facility] Stop: 12/14/24 11:29 Last Admin: 11/14/24 12:18 Dose: 1 each Documented By: CASSIE Co-signed By: PATY Miscellaneous (Check Fentanyl Patch Placement) 1 each N/A QS [facility] Stop: 12/14/24 15:59 Last Admin: 11/14/24 15:44 Dose: 1 each Documented By: PATY Multivitamins/Minerals (Cerovite Adv Formula Tab) 1 tab PO DAILY [facility] Stop: 12/14/24 09:44 Last Admin: 11/14/24 10:25 Dose: 1 tab Documented By: CASSIE Nitroglycerin (Nitroglycerin Sl 0.4 Mg/Tab Tab) 0.4 mg SL Q5M PRN PRN Reason: Chest Pain Stop: 12/14/24 03:30 Last Admin: 11/14/24 08:00 Dose: 0.4 mg Documented By: Admin: 11/14/24 03:37 Dose: 0.4 mg Documented By: ADEEL Pantoprazole Sodium (Pantoprazole 40 Mg Tab) 40 mg PO QAM [facility] Stop: 12/14/24 10:59 Last Admin: 11/14/24 12:18 Dose: 40 mg Documented By: CASSIE Potassium Chloride (Potassium Chloride 10 Meq Tabcr) 20 meq PO DAILY [facility] Stop: 12/14/24 09:29 Last Admin: 11/14/24 10:24 Dose: 20 meq Documented By: RLB Tamsulosin HCl (Tamsulosin Hcl 0.4 Mg Cap) 0.4 mg PO DAILY [facility] Stop: 12/14/24 09:29 Last Admin: 11/14/24 10:25 Dose: 0.4 mg Documented By: RLB Discontinued Medications Insulin Aspart (Insulin Aspart Per Unit Charge) 0 units SC Q6H [facility] Stop: 12/14/24 09:16 Last Admin: 11/14/24 10:24 Dose: 2 units Documented By: RLTawanna Co-signed By: RRDarion Metoprolol Tartrate (Metoprolol Tartrate 1 Mg/Ml Vial) 5 mg IV NOW STA Stop: 11/14/24 03:32 Last Admin: 11/14/24 03:37 Dose: 5 mg Documented By: ADEEL Perflutren Lipid Microsphere (Perflutren Lipid Microsphere (Definity)) 2 ml IV ONCE ONE Stop: 11/14/24 15:00 Last Admin: 11/14/24 15:00 Dose: 2 ml Documented By: JOANNE Imaging Data Radiologist's Impression: Chest X-Ray 11/14/24 01:48 EXAM: XR chest 1V portable CLINICAL HISTORY: Chest pain, nonspecific. TECHNIQUE: An X-ray image of the chest is obtained in AP projection. COMPARISON: 05/23/2020 X-ray. FINDINGS: Pulmonary Parenchyma: Atelectatic band in the left lower zone. Blunting of the left costophrenic angle is likely due to overlying soft tissues. Small nodular opacity in the left mid zone. No evidence of consolidation, collapse, or focal opacities. No evidence of pleural effusion or pleural thickening. Heart and Mediastinum: Heart size and shape are normal. No mediastinal widening or masses. No hilar or mediastinal lymphadenopathy. Calcification of the aortic arch. Bony Thorax: Bony thorax appears intact without fractures or deformities. Mild degenerative changes in acromioclavicular and glenohumeral joints bilaterally. Soft Tissues: Soft tissues overlying the chest wall are unremarkable. Chest leads are seen. IMPRESSION: 1. No evidence of consolidation or pleural effusion on either side. 2. No significant interval change. Electronically signed by Elbert Joshi 11-14-2024 02:44 AM Discharge Plan Visit Data Chief Complaint: Chest Pain Stated Complaint: CHEST PAIN ED Provider: Sandra Webb Discharge Problem: Chest pain Patient Disposition: Admitted As Inpatient Condition: Serious Discharge Instructions Interventions: ED Discharge Assessment Last Done: 11/14/24 08:47 Discharge Problem: Chest pain Qualifiers: Chest pain type: unspecified Qualified Code(s): R07.9 - Chest pain, unspecified
[2024-11-14] MEDS: NITROGLYCERIN SL 0.4 MG/TAB TAB SL PRN (03:37)
[2024-11-14] MEDS: METOPROLOL TARTRATE 1 MG/ML VIAL IV STA (03:37)
--- NOTE | 2024-11-14 05:10 | History & Physical Report ---
Date of Service November 14, 2024 Assessment & Plan (1) Chest pain: Plan: 74-year-old male with past medical history significant for type 2 diabetes, diabetic polyneuropathy, hypotestosteronism, hypothyroidism, hypogonadism in male, dyslipidemia, allergic rhinitis, obstructive sleep apnea on CPAP, nodule of upper lobe of left lung, hypertension, vitamin D deficiency, drug-induced constipation, BPH, osteoarthritis, syringomyelia, chronic neck and back pain, insomnia, anxiety and depression, statin intolerance, cervical spinal stenosis, chronic prescription of benzodiazepine use, bipolar affective psychosis, PTSD, presents with chest pain. Patient states since 11 PM tonight having chest pain in the middle of the chest associated with diaphoresis. Patient states has chronic headaches. Sometimes the headaches are severe. But tonight having chest pain on and off. Denies any shortness of breath. No cough. Was feeling feverish. Has chronic back pain. Uses fentanyl patch and hydrocodone for chronic pain and Ativan for anxiety and Ambien for insomnia. Patient is supposed to check his urine for his Ambien and pain medications and asks that if we can could do it here. Denies abdominal pain. Normal bowel and bladder movements. Currently resting comfortably and hemodynamically stable. Chest pain Initial EKG and troponin unremarkable Will follow serial cardiac enzymes and echo Monitor in med/telemetry N.p.o. for now Cardio consult in a.m.for further recommendation Prolonged QTc Avoid QT prolonging drugs Follow repeat EKG History of type 2 diabetes Change home Lantus to 15 units nightly as currently n.p.o. Sliding scale Will monitor Chronic pain Continue home fentanyl and hydrocodone as needed Anxiety On Ativan Insomnia On Ambien as needed BPH Flomax Hypothyroidism On Synthyroid Hypertension On Lasix with potassium supplement and metoprolol succinate Monitor Obstructive sleep apnea On CPAP nightly Patient states he is not using it regularly GERD On famotidine DVT prophylaxis SCDs for now Disposition Observation med/telemetry Full code. History of Present Illness Chief Complaint: Chest pain Primary Care Provider: Ash Ortiz MD 74-year-old male with past medical history significant for type 2 diabetes, diabetic polyneuropathy, hypotestosteronism, hypothyroidism, hypogonadism in male, dyslipidemia, allergic rhinitis, obstructive sleep apnea on CPAP, nodule of upper lobe of left lung, hypertension, vitamin D deficiency, drug-induced constipation, BPH, osteoarthritis, syringomyelia, chronic neck and back pain, insomnia, anxiety and depression, statin intolerance, cervical spinal stenosis, chronic prescription of benzodiazepine use, bipolar affective psychosis, PTSD, presents with chest pain. Patient states since 11 PM tonight having chest pain in the middle of the chest associated with diaphoresis. Patient states has chronic headaches. Sometimes the headaches are severe. But tonight having chest pain on and off. Denies any shortness of breath. No cough. Was feeling feverish. Has chronic back pain. Uses fentanyl patch and hydrocodone for chronic pain and Ativan for anxiety and Ambien for insomnia. Patient is supposed to check his urine for his Ambien and pain medications and asks that if we can could do it here. Denies abdominal pain. Normal bowel and bladder movements. Currently resting comfortably and hemodynamically stable. Past medical history. As mentioned above. Past surgical history. Colonoscopy. EGD. Hand surgery. Reduction of bowel obstruction. Removal of ruptured appendix. Umbilical hernia repair. Social history. . No smoking. No alcohol use. No drug use. Family history. Patient is adopted as per [facility]. Allergies Allergy/AdvReac Type Severity Reaction Status Date / Time amitriptyline Allergy Intermediate SHORTNESS Verified 11/14/24 02:20 OF BREATH linaclotide Allergy Intermediate rash, Verified 11/14/24 02:20 severe diarrhea, swelling methadone Allergy Intermediate SHORTNESS Verified 11/14/24 02:20 OF BREATH tetanus immune globulin Allergy Intermediate EXTRA Verified 11/14/24 02:20 SWELLING AT SITE AND EXTREMITY doxycycline Allergy Mild ON Verified 11/14/24 02:20 [facility] fenofibrate [From Tricor] Allergy Mild ON Verified 11/14/24 02:20 [facility] pregabalin [From Lyrica] Allergy Mild Unknown Verified 11/14/24 02:20 rosuvastatin [From Crestor] Allergy Mild ON Verified 11/14/24 02:20 [facility] simvastatin [From Zocor] Allergy Mild ON Verified 11/14/24 02:20 [facility] Tricyclic Antidepressants Allergy Mild ON Verified 11/14/24 02:20 and Tricy [facility] Yeast Allergy Mild ON Verified 11/14/24 02:20 [facility] glyburide Allergy Unknown ON Verified 11/14/24 02:20 [facility] quetiapine Allergy Unknown ON Verified 11/14/24 02:20 [facility] Sulfa (Sulfonamide Allergy Unknown ON Verified 11/14/24 02:20 Antibiotics) [facility] metformin AdvReac Intermediate NAUSEA/VOMI Verified 11/14/24 02:20 TING blue dye AdvReac Unknown UNKNOWN Verified 11/14/24 02:20 duloxetine AdvReac Unknown ON Verified 11/14/24 02:20 [facility] Home Medications Medication Instructions Recorded Confirmed Type CPAP Machine 05/18/23 03/13/24 History famotidine 40 mg tablet (Pepcid) 40 mg PO QAM 05/18/23 11/14/24 History furosemide 20 mg tablet 20 mg PO QAM 05/18/23 11/14/24 History levothyroxine 50 mcg tablet 50 mcg PO DAILYBB 05/18/23 11/14/24 History (Levoxyl) tamsulosin 0.4 mg capsule (Flomax) 0.4 mg PO DAILY 05/18/23 11/14/24 History metoprolol succinate 25 mg 50 mg PO DAILY 09/05/23 11/14/24 History tablet,extended release 24 hr potassium chloride 10 mEq 20 meq PO DAILY 09/05/23 11/14/24 History capsule,extended release fentanyl 25 mcg/hr transdermal 1 patch transdermal Q48H 11/27/23 11/14/24 History patch hydrocodone 10 mg-acetaminophen 1 tab PO Q8H PRN Severe Pain 11/27/23 11/14/24 History 325 mg tablet (Scale Score 7-10) lorazepam 1 mg tablet (Ativan) 1 mg PO HS 11/27/23 11/14/24 History zolpidem 3.5 mg sublingual tablet 3.5 mg sublingual HS PRN Sleep 11/27/23 11/14/24 History insulin glargine 100 unit/mL (3 30 unit subcut PM 11/14/24 11/14/24 History mL) subcutaneous pen (Lantus Solostar U-100 Insulin) mv-mn-folic 200 mcg-vit K 15 1 cap PO DAILY 11/14/24 11/14/24 History mcg-lutein 5 mg-zeaxanthin 1 mg capsule (PreserVision AREDS 2 Plus Multivit) omega 6-vpt-yiv-fish oil 1,200 mg 1 cap PO DAILY 11/14/24 11/14/24 History (144 mg-216 mg) capsule (Fish Oil) rimegepant 75 mg disintegrating 75 mg PO Q OTHER DAY 11/14/24 11/14/24 History tablet (Nurtec ODT) rizatriptan 10 mg tablet See Rx Instructions .Route 11/14/24 11/14/24 History .COMPLEX PRN Migraine Headache triamcinolone acetonide 0.1 % 1 applic topical BID PRN SKIN 11/14/24 11/14/24 History topical cream IRRITATIONS Past Med/Surg History Problem List (Updated 11/14/24 @ 05:16 by Neal Colmenares MD) Chest pain Facet arthropathy, cervical Chronic headaches History of migraine Polyneuropathy Opioid dependence (Chronic) Benzodiazepine withdrawal BPH (benign prostatic hyperplasia) (Chronic) Anxiety and depression (Chronic) SVT (supraventricular tachycardia) (Chronic) Hypothyroidism (Chronic) Obstructive sleep apnea (Chronic) Small bowel obstruction (Chronic) Chronic pain syndrome (Chronic) Insomnia (Chronic) Hypokalemia (Acute) Hypophosphatemia (Acute) Abdominal pain, generalized (Acute) Chronic neck and back pain (Acute) Syringomyelia (Chronic) Diabetes (Chronic) HTN (hypertension) (Chronic) Anxiety disorder, unspecified Chronic pain (Chronic) Hypothyroidism Major depressive disorder, recurrent, moderate Migraines Misuse of prescription only drugs Obstructive sleep apnea Family History Father Heart disease Lung cancer Mother Lung cancer Social History Smoking Status: Never smoker Hx Alcohol Use: No (quit in 2009) Hx Substance Use: No Preferred Language: Bahamian Communication Ability: Effective Die Attacher Required: No Beliefs That Will Affect Care: None marital status: Current Living Situation: Spouse current occupational status: disabled 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 Exposed to Agent [place] in the [place] War. Feels Safe at Home: Yes Assistive Devices: Glasses Review of Systems Review of Systems: All systems reviewed & are unremarkable except as noted in HPI & below Physical Exam Physical Exam: General- Not in distress Head- atraumatic Eyes- PERRL. ENT- oropharynx clear Neck- supple, no JVD. Lungs- clear to auscultation no wheezing or crackles. Heart- regular rate and rhythm; no murmur, no gallop. Abdomen- normal bowel sounds, soft, mild diffuse discomfort, no distension. Extremities- no pretibial edema, no erythema seen Neuro- alert, oriented PERRL, no facial palsy; no dysarthria; moves extremities Results & Data Results & Data Vital Signs (Past 12 Hours) Vital Signs Temp Pulse Pulse Resp BP BP Pulse Ox 11/14/24 04:24 98 H 110/73 11/14/24 04:00 98 H 20 110/73 93 11/14/24 03:37 113 H 138/86 11/14/24 03:33 112 H 15 138/86 95 11/14/24 03:03 117 H 17 149/107 H 92 11/14/24 02:30 117 H 16 155/91 H 94 11/14/24 02:23 94 11/14/24 02:18 121 H 11/14/24 02:00 126 H 19 124/82 93 11/14/24 01:45 11/14/24 01:45 36.8 C 119 H 20 124/82 93 O2 Del Method 11/14/24 04:24 11/14/24 04:00 Room Air 11/14/24 03:37 11/14/24 03:33 11/14/24 03:03 11/14/24 02:30 11/14/24 02:23 Room Air 11/14/24 02:18 11/14/24 02:00 11/14/24 01:45 Room Air 11/14/24 01:45 Room Air Diagnostic Findings Laboratory Results WBC 11.02 K/ul (4.8-10.8) H 11/14/24 02:47 RBC 4.39 M/uL (4.70-6.10) L 11/14/24 02:47 Hgb 13.6 g/dl (14.0-18.0) L 11/14/24 02:47 Hct 39.2 % (42.0-52.0) L 11/14/24 02:47 MCV 89.3 fL (80.0-100.0) 11/14/24 02:47 MCH 31.0 pg (25.0-34.0) 11/14/24 02:47 MCHC 34.7 g/dL (32.0-36.0) 11/14/24 02:47 RDW Std Deviation 43.4 fL (36.4-46.3) 11/14/24 02:47 RDW Coeff of Val 13.2 % (11.5-14.5) 11/14/24 02:47 Plt Count 211 K/uL (130-400) 11/14/24 02:47 MPV 9.7 fL (9.4-12.4) 11/14/24 02:47 Immature Gran % (Auto) 0.5 % 11/14/24 02:47 Neut % (Auto) 82.2 % 11/14/24 02:47 Lymph % (Auto) 8.8 % 11/14/24 02:47 [place] % (Auto) 7.0 % 11/14/24 02:47 Eos % (Auto) 1.0 % 11/14/24 02:47 Baso % (Auto) 0.5 % 11/14/24 02:47 Neut # (Auto) 9.06 K/uL (1.40-6.50) H 11/14/24 02:47 Lymph # (Auto) 0.97 K/uL (1.20-3.40) L 11/14/24 02:47 [place] # (Auto) 0.77 K/uL (0.11-0.59) H 11/14/24 02:47 Eos # (Auto) 0.11 K/uL (0.00-0.50) 11/14/24 02:47 Baso # (Auto) 0.05 K/uL (0.00-0.20) 11/14/24 02:47 Immature Gran # (Auto) 0.06 K/uL (0.01-0.20) 11/14/24 02:47 Sodium 136 mmol/L (136-145) 11/14/24 02:47 Potassium 3.7 mmol/L (3.5-5.1) 11/14/24 02:47 Chloride 97 mmol/L (98-107) L 11/14/24 02:47 Carbon Dioxide 27 mmol/L (21-32) 11/14/24 02:47 Anion Gap 12 (3-11) H 11/14/24 02:47 BUN 20 mg/dl (6-23) 11/14/24 02:47 Creatinine 0.92 mg/dl (0.6-1.4) 11/14/24 02:47 Est Cr Clr Drug Dosing 70.3 ml/min 11/14/24 02:47 eGFR 86.21 11/14/24 02:47 BUN/Creatinine Ratio 21.7 (10-20) H 11/14/24 02:47 Glucose 191 mg/dl (70-99(Fasting)) H 11/14/24 02:47 Calcium 9.7 mg/dl (8.6-10.3) 11/14/24 02:47 Total Bilirubin 0.6 mg/dl (0.2-1.0) 11/14/24 02:47 AST 15 U/L (13-39) 11/14/24 02:47 ALT 9 U/L (7-52) 11/14/24 02:47 Alkaline Phosphatase 55 U/L (34-104) 11/14/24 02:47 Troponin I High Sens 13.1 pg/ml (0-20) 11/14/24 02:47 Total Protein 7.0 gm/dl (6.0-8.3) 11/14/24 02:47 Albumin 4.2 gm/dl (3.4-5.0) 11/14/24 02:47 Globulin 2.8 gm/dl (2.5-4.0) 11/14/24 02:47 Albumin/Globulin Ratio 1.5 (0.9-2) 11/14/24 02:47 Lipase 14 U/L (11-82) 11/14/24 02:47 Impressions Chest X-Ray 11/14/24 01:48 EXAM: XR chest 1V portable CLINICAL HISTORY: Chest pain, nonspecific. TECHNIQUE: An X-ray image of the chest is obtained in AP projection. COMPARISON: 05/23/2020 X-ray. FINDINGS: Pulmonary Parenchyma: Atelectatic band in the left lower zone. Blunting of the left costophrenic angle is likely due to overlying soft tissues. Small nodular opacity in the left mid zone. No evidence of consolidation, collapse, or focal opacities. No evidence of pleural effusion or pleural thickening. Heart and Mediastinum: Heart size and shape are normal. No mediastinal widening or masses. No hilar or mediastinal lymphadenopathy. Calcification of the aortic arch. Bony Thorax: Bony thorax appears intact without fractures or deformities. Mild degenerative changes in acromioclavicular and glenohumeral joints bilaterally. Soft Tissues: Soft tissues overlying the chest wall are unremarkable. Chest leads are seen. IMPRESSION: 1. No evidence of consolidation or pleural effusion on either side. 2. No significant interval change. Electronically signed by Elbert Joshi 11-14-2024 02:44 AM ECG Additional Comments: ECG. Sinus tachycardia 111. Nonspecific T wave abnormality. QTc 533. Code Status & VTE Plan VTE Prophylaxis Plan VTE Prophylaxis will be ordered: Yes
[2024-11-14 08:06] VITALS: O2SAT 95
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
[2024-11-14] MEDS ORDERED: ACETAMINOPHEN 325 MG TAB PO PRN (09:17)
[2024-11-14] MEDS ORDERED: GLUCOSE 10 TAB/TUBE PO PRN (09:17)
[2024-11-14] MEDS ORDERED: GLUCAGON FOR INJ 1 MG VIAL SQ PRN (09:17)
[2024-11-14] MEDS ORDERED: ONDANSETRON INJ 2 MG/ML 2 ML VIAL IV PRN (09:17)
[2024-11-14] MEDS ORDERED: DEXTROSE 50% 50 ML SYRINGE IV PRN (09:17)
[2024-11-14] MEDS ORDERED: POLYETHYLENE (MIRALAX) 17 GM PACK PO PRN (09:17)
[2024-11-14] MEDS ORDERED: CARBOHYDRATES FOR HYPOGLYCEMIA PO PRN (09:17)
[2024-11-14] MEDS ORDERED: ZOLPIDEM TARTRATE 5 MG TAB PO PRN (09:17)
[2024-11-14] MEDS ORDERED: GLUCOSE 40% GEL 15 GM TUBE PO PRN (09:17)
[2024-11-14 09:47] LABS: Hematocrit (blood only) 42.9 % (42.0-52.0); Hemoglobin 14.6 g/dl (14.0-18.0); Immature Granulocytes # (auto) 0.06 K/uL (0.01-0.20); Immature Granulocytes % (auto) 0.7 %; Mean Corpuscular Hemoglobin 30.7 pg (25.0-34.0); Mean Corpuscular Volume 90.3 fL (80.0-100.0); Platelet Count 259 K/uL (130-400); RDW Standard Deviation 43.8 fL (36.4-46.3); Red Blood Count 4.75 M/uL (4.70-6.10); White Blood Count 8.85 K/ul (4.8-10.8)
[2024-11-14 10:05] LABS: Anion Gap 11.0 (3-11); Blood Urea Nitrogen 21.0 mg/dl (6-23); Calcium 10.3 mg/dl (8.6-10.3); Carbon Dioxide 29.0 mmol/L (21-32); Chloride 96.0 mmol/L (98-107); Creatinine Clr Calc Pharmacy 64.0 ml/min; Glucose 195.0 mg/dl (70-99(Fasting)); Magnesium 2.0 mg/dl (1.7-2.4); Potassium 4.0 mmol/L (3.5-5.1); Sodium 136.0 mmol/L (136-145)
[2024-11-14] MEDS: POTASSIUM CHLORIDE 10 MEQ TABCR PO SCH (10:24)
[2024-11-14] MEDS: INSULIN ASPART PER UNIT CHARGE SC SCH ×2 (10:24→13:06)
[2024-11-14] MEDS: FAMOTIDINE 40 MG TABLET PO SCH (10:25)
[2024-11-14] MEDS: METOPROLOL SUCC 50MG EXT REL TAB PO SCH (10:25)
[2024-11-14] MEDS: CEROVITE ADV FORMULA TAB PO SCH (10:25)
[2024-11-14] MEDS: FUROSEMIDE 20 MG TAB PO SCH (10:25)
[2024-11-14] MEDS: LEVOTHYROXINE SODIUM 50 MCG TABLET PO SCH (10:25)
[2024-11-14] MEDS: TAMSULOSIN HCL 0.4 MG CAP PO SCH (10:25)
[2024-11-14 11:22] VITALS: BP 142/78; RESP 20
--- NOTE | 2024-11-14 12:17 | Communication Note ---
Date of Service: November 14, 2024 Patient seen and examined at the bedside. He had presented with chest pain in retrosternal region. EKG shows sinus rhythm; nonspecific T wave abnormality in lateral leads High sensitive troponin is negative x 3 On physical examination; Constitutional: Alert oriented x 3; not in distress. Respiratory: normal respiratory effort, lungs clear to auscultation, no wheeze, rales, rhonchi. Normal insp/exp effort, no accessory muscle use Cardiovascular: RRR, no murmur, no edema Vessels: no JVD or carotid bruit Chest: normal inspection of chest Abdomen: normal bowel sounds, soft, nontender, no hepatosplenomegaly Musculoskeletal: no cyanosis or clubbing, extremities motor strength 5/5 Neurologic: PERRL, EOMI, accommodation nl, no face palsy, no dysarthria CN's II- XI intact bilaterally and moves all extremities Psychiatric: A+Ox3, euthymic affect Assessment/plan Chest pain, ACS ruled out Possible GERD Patient presented with retrosternal chest pain EKG shows normal sinus rhythm; nonspecific T wave changes High sensitive troponin is negative x 3 Echocardiogram pending Cardiology consulted for comanagement; appreciate recommendation Protonix added for possible GERD Full progress note to follow tomorrow Please note the above document was generated using voice recognition software. It may contain grammatical, syntax or spelling errors. Any formal questions or concerns about the content, text or information contained within the body of this dictation should be directly addressed to the provider for clarification
[2024-11-14] MEDS: PERFLUTREN LIPID MICROSPHERE (DEFINITY) IV ONE (15:00)
[2024-11-14] MEDS: ASPIRIN 81 MG ECTAB PO SCH (15:43)
[2024-11-14 17:31] VITALS: PULSE 90
[2024-11-14 19:31] LABS: Amphetamines+Metham, Urine Neg (Neg); MDMA (Ecstacy), Urine Neg (Neg); Marijuana, Urine Neg (Neg)
[2024-11-14] MEDS ORDERED: LORazepam 1 MG TAB PO SCH (21:00)
[2024-11-14] MEDS ORDERED: LANTUS PER UNIT CHARGE SQ SCH (21:00)
--- NOTE | 2024-11-14 22:04 | Electrocardiogram Report ---
Test Reason : Blood Pressure : */* mmHG Vent. Rate : 122 BPM Atrial Rate : 122 BPM P-R Int : 152 ms QRS Dur : 82 ms QT Int : 356 ms P-R-T Axes : * 82 11 degrees QTcB Int : 507 ms Sinus tachycardia Nonspecific ST and T wave abnormality Prolonged QT Abnormal ECG When compared with ECG of 23-May-2020 10:10, QT has lengthened Confirmed by Dwayen Rosado ([id number]) on 11/14/2024 10:04:00 PM Referred By: REFERRED SELF Confirmed By: Dwayne Rosado
--- NOTE | 2024-11-14 22:05 | Electrocardiogram Report ---
Test Reason : Blood Pressure : */* mmHG Vent. Rate : 111 BPM Atrial Rate : 111 BPM P-R Int : 210 ms QRS Dur : 80 ms QT Int : 392 ms P-R-T Axes : 52 81 21 degrees QTcB Int : 533 ms Sinus tachycardia with 1st degree A-V block Nonspecific T wave abnormality Prolonged QT Abnormal ECG When compared with ECG of 14-Nov-2024 01:45, No significant change was found Confirmed by Dwayne Rosado ([id number]) on 11/14/2024 10:05:11 PM Referred By: REFERRED SELF Confirmed By: Dwayne Rosado
--- NOTE | 2024-11-14 22:09 | Electrocardiogram Report ---
Test Reason : Blood Pressure : */* mmHG Vent. Rate : 74 BPM Atrial Rate : 74 BPM P-R Int : 218 ms QRS Dur : 80 ms QT Int : 400 ms P-R-T Axes : 28 67 112 degrees QTcB Int : 444 ms Sinus rhythm with 1st degree A-V block Nonspecific T wave abnormality Abnormal ECG When compared with ECG of 14-Nov-2024 03:28, Vent. rate has decreased by 37 bpm T wave inversion no longer evident in Inferior leads Confirmed by Dwayne Rosado ([id number]) on 11/14/2024 10:09:36 PM Referred By: REFERRED SELF Confirmed By: Dwayne Rosado
--- NOTE | 2024-11-15 14:02 | Discharge Summary ---
Date of Service November 14, 2024 Admission HPI Per Admitting Provider 74-year-old male with past medical history significant for type 2 diabetes, diabetic polyneuropathy, hypotestosteronism, hypothyroidism, hypogonadism in male, dyslipidemia, allergic rhinitis, obstructive sleep apnea on CPAP, nodule of upper lobe of left lung, hypertension, vitamin D deficiency, drug-induced constipation, BPH, osteoarthritis, syringomyelia, chronic neck and back pain, insomnia, anxiety and depression, statin intolerance, cervical spinal stenosis, chronic prescription of benzodiazepine use, bipolar affective psychosis, PTSD, presents with chest pain. Patient states since 11 PM tonight having chest pain in the middle of the chest associated with diaphoresis. Patient states has chronic headaches. Sometimes the headaches are severe. But tonight having chest pain on and off. Denies any shortness of breath. No cough. Was feeling feverish. Has chronic back pain. Uses fentanyl patch and hydrocodone for chronic pain and Ativan for anxiety and Ambien for insomnia. Patient is supposed to check his urine for his Ambien and pain medications and asks that if we can could do it here. Denies abdominal pain. Normal bowel and bladder movements. Currently resting comfortably and hemodynamically stable. Past medical history. As mentioned above. Past surgical history. Colonoscopy. EGD. Hand surgery. Reduction of bowel obstruction. Removal of ruptured appendix. Umbilical hernia repair. Social history. . No smoking. No alcohol use. No drug use. Family history. Patient is adopted as per [facility]. Admission Exam Per Admitting Provider General- Not in distress Head- atraumatic Eyes- PERRL. ENT- oropharynx clear Neck- supple, no JVD. Lungs- clear to auscultation no wheezing or crackles. Heart- regular rate and rhythm; no murmur, no gallop. Abdomen- normal bowel sounds, soft, mild diffuse discomfort, no distension. Extremities- no pretibial edema, no erythema seen Neuro- alert, oriented PERRL, no facial palsy; no dysarthria; moves extremities Principal Diagnosis Chest pain, ACS ruled out Possible GERD Discharge Exam Constitutional: WD/WN, vitals as above, NAD, sitting up in bed, pleasant, conversing easily Respiratory: normal respiratory effort, lungs clear to auscultation, no wheeze, rales, rhonchi. Normal insp/exp effort, no accessory muscle use Cardiovascular: RRR, no murmur, no edema Vessels: no JVD or carotid bruit Chest: normal inspection of chest Abdomen: normal bowel sounds, soft, nontender, no hepatosplenomegaly Musculoskeletal: no cyanosis or clubbing, extremities motor strength 5/5 Skin: no rashes, warm and dry normal turgor Neurologic: PERRL, EOMI, accommodation nl, no face palsy, no dysarthria CN's II- XI intact bilaterally and moves all extremities Psychiatric: A+Ox3, euthymic affect Discharge Data Allergies Allergy/AdvReac Type Severity Reaction Status Date / Time amitriptyline Allergy Intermediate SHORTNESS Verified 11/14/24 02:20 OF BREATH linaclotide Allergy Intermediate rash, Verified 11/14/24 02:20 severe diarrhea, swelling methadone Allergy Intermediate SHORTNESS Verified 11/14/24 02:20 OF BREATH tetanus immune globulin Allergy Intermediate EXTRA Verified 11/14/24 02:20 SWELLING AT SITE AND EXTREMITY doxycycline Allergy Mild ON Verified 11/14/24 02:20 [facility] fenofibrate [From Tricor] Allergy Mild ON Verified 11/14/24 02:20 [facility] pregabalin [From Lyrica] Allergy Mild Unknown Verified 11/14/24 02:20 rosuvastatin [From Crestor] Allergy Mild ON Verified 11/14/24 02:20 [facility] simvastatin [From Zocor] Allergy Mild ON Verified 11/14/24 02:20 [facility] Tricyclic Antidepressants Allergy Mild ON Verified 11/14/24 02:20 and Tricy [facility] Yeast Allergy Mild ON Verified 11/14/24 02:20 [facility] glyburide Allergy Unknown ON Verified 11/14/24 02:20 [facility] quetiapine Allergy Unknown ON Verified 11/14/24 02:20 [facility] Sulfa (Sulfonamide Allergy Unknown ON Verified 11/14/24 02:20 Antibiotics) [facility] metformin AdvReac Intermediate NAUSEA/VOMI Verified 11/14/24 02:20 TING blue dye AdvReac Unknown UNKNOWN Verified 11/14/24 02:20 duloxetine AdvReac Unknown ON Verified 11/14/24 02:20 [facility] Consultations 11/14/24 04:17 ED Decision to Admit Stat 11/14/24 08:46 Consult Cardiology Routine Hospital Course (1) Chest pain: 74-year-old male with past medical history significant for type 2 diabetes, diabetic polyneuropathy, hypotestosteronism, hypothyroidism, hypogonadism in male, dyslipidemia, allergic rhinitis, obstructive sleep apnea on CPAP, nodule of upper lobe of left lung, hypertension, vitamin D deficiency, drug-induced constipation, BPH, osteoarthritis, syringomyelia, chronic neck and back pain, insomnia, anxiety and depression, statin intolerance, cervical spinal stenosis, chronic prescription of benzodiazepine use, bipolar affective psychosis, PTSD, presents with chest pain. Patient underwent EKG which showed normal sinus rhythm and nonspecific T wave changes. High sensitive troponin was found to be negative x 3. He underwent echocardiogram which showed normal EF of 65 to 70%, grade 1 diastolic dysfunction and mild concentric LVH. Cardiology was consulted for comanagement; they recommended adding aspirin and outpatient follow-up for Lexiscan nuclear stress test. Protonix was added for possible GERD. Patient did not have any recurrence of chest pain. Patient to follow-up with PCP and arrange for outpatient Lexiscan nuclear stress test. Please note the above document was generated using voice recognition software. It may contain grammatical, syntax or spelling errors. Any formal questions or concerns about the content, text or information contained within the body of this dictation should be directly addressed to the provider for clarification Total Time Total Time Spent Total Time Spent (In Minutes): 45 Total Time Includes: Examination of the Patient, Discharge Planning, Medication Reconciliation, Communication With Other Providers and Other Discharge Plan Discharge Items Patient Disposition: Home - Self-Care Reason For Visit: CHEST PAIN Discharge Diagnosis: Chest pain ACS ruled out Possible GERD Condition on Discharge: Serious Activity: Resume your previous activity Non-emergency contact: Primary Care Provider Call non-emergency contact if: you have any medication questions and your symptoms worsen Follow-up/Referrals: Ash Ortiz MD [Primary Care Provider] - 11/21/24 2:50 pm (Date & Time 11/21/2024 2:50 PM Provider: Ash Hickman MD Family [facility], [facility]) Diet: Regular Addtl Attending Provider Instructions: You were admitted to the hospital due to chest pain. Testing during the hospitalization ruled out heart attack. You underwent echocardiogram of the heart which showed normal heart function. You were seen by cardiology who recommended that you were started on baby aspirin 81 mg once a day. An appointment has been set up with your primary care doctor for follow-up and to obtain stress test as outpatient. You are also prescribed Protonix 40 mg once a day in the morning in the empty stomach for possible reflux. Pending Studies at Discharge: No Stand-Alone Forms: My [facility] [employer], Smoking Cessation Medications and DC Order Prescriptions: New aspirin 81 mg Tablet,Delayed Release (Dr/Ec) 81 mg PO DAILY Qty: 30 0RF pantoprazole 40 mg Tablet,Delayed Release (Dr/Ec) 40 mg PO QAM Qty: 30 0RF Continued fentanyl 25 mcg/hr patch 72 hour 1 patch transdermal Q48H hydrocodone-acetaminophen 10-325 mg tablet 1 tab PO Q8H PRN (Reason: Severe Pain (Scale Score 7-10)) lorazepam [Ativan] 1 mg tablet 1 mg PO HS potassium chloride 10 mEq capsule, extended release 20 meq PO DAILY Rx Instructions: 2 tabs metoprolol succinate 25 mg tablet extended release 24 hr 50 mg PO DAILY levothyroxine [Levoxyl] 50 mcg tablet 50 mcg PO DAILYBB famotidine [Pepcid] 40 mg tablet 40 mg PO QAM (DME) CPAP Machine Misc See Rx Instructions .Route Rx Instructions: As directed tamsulosin [Flomax] 0.4 mg capsule 0.4 mg PO DAILY furosemide 20 mg tablet 20 mg PO QAM zolpidem 3.5 mg tablet, sublingual 3.5 mg sublingual HS PRN (Reason: Sleep) triamcinolone acetonide 0.1 % Cream 1 applic TOPICAL BID PRN (Reason: SKIN IRRITATIONS) insulin glargine [Lantus Solostar U-100 Insulin] 100 unit/mL (3 mL) Insulin Pen 30 unit SUBCUT PM omega [id number] oil [Fish Oil] 1,200 (144-216) mg Capsule 1 cap PO DAILY PreserVision AREDS 2 Plus MV 200 mcg-15 mcg- 5 mg-1 mg Capsule 1 cap PO DAILY rizatriptan 10 mg tablet See Rx Instructions .ROUTE .COMPLEX PRN (Reason: Migraine Headache) Rx Instructions: TAKE 1 TABLET BY MOUTH DAILY NEEDED FOR MIGRAINE/HEADACHE. MAX OF 10 TABLETS PER MONTH Nurtec ODT 75 mg tablet,disintegrating 75 mg PO Q OTHER DAY Rx Instructions: 75 mg PO; every other day to prevent migraines. Do not take as needed Discharge Orders: Discharge Order (Routine); Ordered 11/14/24 Ordered By: Joesph Campos Admission Data Admit Date/Time: 11/14/24 05:06 Attending Provider: Joesph Campos Admit Provider: Neal Colmenares Primary Care Provider: Ash Ortiz Other Providers: Jordan Willis; Neal Colmenares Other Interventions: Discharge Summary Assessment (RN) Last Done: 11/14/24 17:30
[2024-11-18 08:47] LABS: Hydrocodone Urine 2320 ng/mL (<50); Hydromor Urine 604 ng/mL (<50); Norfentanyl, Urine 107.0 ng/mL (<0.5); Noroxycodone Urine NEGATIVE ng/mL (<50); Oxymorph Urine NEGATIVE ng/mL (<50); medMATCH Fentanyl, Urine DNR; medMATCH Norfentanyl, Urine DNR
== END 2024-11-14 19:08 | disposition home or self-care (01) ==
LOC: ED 01:41 → 2N 01:41